=== PATIENT | male | born 1990 | race Caucasian/White ===

== ENCOUNTER 2017-12-13 08:54 | Inpatient (IN) | payer OTHER ==
[~2017-12-13] VITALS: Ht 172.7 cm; Wt 77.1 kg
[~2017-12-13 08:54] MED LIST: AUGMENTIN 875875 MG PO; BUPROPION XL300 M1 PO; CITALOPRAM HYDR10 MG PO; CITALOPRAM HYDR20 MG PO; CLONAZEPAM1 MG PO; DOLOPHINE10 MG PO; GABAPENTIN TAB600 MG PO; GABAPENTIN300 M2 PO; GABAPENTIN300 MG PO; METHADONE H5 MG/5 ML PO; METHADONE10 MG/5 ML PO; NICORELIEF2 MG PO; TORADOL10 MG PO; TRILEPTAL150 M1 PO; WELLBUTRIN SR200 M1 PO
--- NOTE | 2017-12-13 09:32 | ED GENERAL ADULT ---
See Addendum History of Present Illness General Chief Complaint: ETOH/Drug Related Complaint Stated Complaint: AMS, SOB, NO SLEEP X 5 DAYS. HX DRUG USE Source: patient, family Exam Limitations: clinical condition, physical impairment Vital Signs & Intake/Output Vital Signs & Intake/Output Vital Signs Date Time Temp Pulse Resp B/P B/P Pulse O2 O2 Flow FiO2 Mean Ox Delivery Rate 12/14 1100 98.0 62 20 104/56 97 Room Air 12/14 0837 98.1 82 20 115/67 96 Room Air 12/14 0607 97.6 77 18 108/63 97 Room Air 12/13 2359 98.2 66 16 111/55 97 12/13 2102 98.3 87 20 129/81 98 Room Air 12/13 1630 71 18 131/73 96 Room Air ED Intake and Output 12/14 0000 12/13 1200 Intake Total Output Total Balance Patient 170 lb Weight Weight Reported by Patient Measurement Method Allergies Coded Allergies: Cephalosporins (Severe, tongue swelling 08/14/17) haloperidol (From HALDOL) (Severe, tongue swelling 08/14/17) Reconcile Medications Bupropion HCl (Bupropion XL) 300 MG TAB.ER.24H 1 TAB PO 0800 DEPRESSION Gabapentin 300 MG CAPSULE 1 TAB PO Q8 ANXIETY Nicotine (Nicorelief) 2 MG GUM 1 GUM PO Q2H PRN nicotine craving refract to pa Oxcarbazepine (Trileptal) 150 MG TABLET 2 TAB PO BID MOOD STABILIZER Triage Note: PT TO ED WITH FATHER FOR AMS. FATHER STATES PT HAS H/O DRUG USE, HAS NOT SLEPT IN 5 DAYS AND HAS BEEN PACING. FATHER STATES PT HAS HAD 2 RECENT "CLINICALLY " EXPERIENCES AND WAS BROUGHT BACK WITH [facility]. PT RELUCTANT TO ANSWER QUESTIONS, UNKNOWN LAST USE OR OF WHAT. FATHER STATES PT HAS SI THOUGHTS/STATEMENTS, PT NOT ANSWERING APPROPRIATELY. IN W/C DUE TO UNSTEADY ON FEET. Triage Nurses Notes Reviewed? yes Onset: Abrupt Duration: day(s): Timing: recent history HPI: 12/13/17 9:37 AM 27-year-old male presents to the emergency department for depression, drug use, suicidal ideation. According to the patient's father he has a history of intravenous drug abuse. He says he's had multiple drug overdoses and is almost on multiple occasions. He continues to use drugs and has verbalized suicidal ideation to his father. His father is very concerned and said he is going to kill himself. (Francisco Castañeda DO) Past History Travel History Traveled to [place] past 21 day No Medical History Any Pertinent Medical History? 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 Hx Contributory? No (Francisco Castañeda DO) Review of Systems Review of Systems Constitutional: Denies: fever. EENTM: Reports: no symptoms. Respiratory: Denies: short of breath. Cardiovascular: Denies: chest pain. GI: Reports: no symptoms. Genitourinary: Reports: no symptoms. Musculoskeletal: Reports: muscle stiffness. Skin: Reports: no symptoms. Neurological/Psychological: Reports: depressed. Hematologic/Endocrine: Reports: no symptoms. Immunologic/Allergic: Reports: no symptoms. (Francisco Castañeda DO) Physical Exam Physical Exam General Appearance: awake, anxious, severe distress Head: atraumatic Ears, Nose, Throat: normal pharynx Neck: normal inspection, supple, full range of motion Respiratory: chest non-tender, no respiratory distress Cardiovascular: regular rate/rhythm Peripheral Pulses: 4+ radial (R), 4+ radial (L) Gastrointestinal: soft, non-tender Back: normal range of motion Extremities: normal range of motion Neurologic/Psych: no motor/sensory deficits, awake, alert, oriented x 3 Skin: intact, normal color, warm/dry Core Measures ACS in differential dx? No CVA/TIA Diagnosis: No Sepsis Present: No Sepsis Focused Exam Completed? No (Francisco Castañeda DO) Progress Differential Diagnoses I considered the following diagnoses in my evaluation of the patient: [Alcohol withdrawal, opiate withdrawal, opiate dependency, depression, suicidal ideation] Plan of Care: Orders Procedure Date/time Status Admit to inpatient psych 12/14 1113 Active Continuous Observation Monitor 12/14 0719 Active Regular Diet 12/13 D Active Restraint- Discontinue 12/13 2317 Active Patient Safety Monitor 12/13 2034 Active Restraint- Behavioral (Order) 12/13 2034 Active Current Medications Sig/Pennie Start time Last Medication Dose Stop Time Status Admin Olanzapine 5 MG TID 12/14 1000 UNVr 12/14 (ZYDIS (Orally 0847 disintegrating tabs)) Oxcarbazepine 300 MG BID 12/14 1000 UNVr 12/14 (Trileptal 150MG Tab) 0804 Bupropion HCl 300 MG 0800 12/14 0800 UNVr 12/14 (Wellbutrin XL) 0804 Gabapentin 300 MG Q8 12/14 0742 UNVr (Neurontin) Gabapentin 300 MG Q6P PRN 12/13 1915 AC 12/14 (Neurontin) 0623 Laboratory Tests 12/13/17 1230: Urine Opiates Screen 361, Methadone Screen < 40, Barbiturate Screen < 60, Ur Phencyclidine Scrn < 6.00, Amphetamines Screen < 100, U Benzodiazepines Scrn < 85, Urine Cocaine Screen 384 H, Urine Cannabis Screen < 5.00 11:29 AM PATIENT SIGNED OUT TO ME BY DR CASTAÑEDA, PENDING CRISIS EVALUATION. 11:15 AM PATIENT SIGNED OUT TO ME BY DR ENGEL, ADMITTED TO [facility]. (Mitali TEJEDA,Renu) Initial ED EKG: pending (Francisco Castañeda DO) Differential Diagnoses I considered the following diagnoses in my evaluation of the patient: Hand-Off Endorsed To: Gopi Desir MD Endorsed Time: 1912 Pending: consult (CRISIS REEVALUATION IN AM) (Renu Jasmine MD) Hand-Off Endorsed To: Francisco Engel MD Endorsed Time: 699 Pending: consult Comments: Patient attempted to run out of the emergency department. Patient was stopped and escorted back to his room. At this point patient will be placed on a PEC. Patient keeps trying to leave his room. Patient instructed that if he doesn't go back to his room he will need to be restrained. Patient states "than just time he down and give me a shot." Patient is upset that he was not given Ativan. Patient advised that he will still not be getting Ativan. 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 (Maren TEJEDA,Francisco Palacio) Departure Departure Disposition: STILL A PATIENT Condition: Stable Clinical Impression Primary Impression: Depression Secondary Impressions: Opiate dependence Referrals: Patient Has No Primary Care Dr (PCP/Family) Departure Forms: Customer Survey General Discharge Information Comments 12/13/17 9:41 AM The patient was treated with IM Ativan and by mouth clonidine. Labs and crisis consultation ordered. Continuous observation was initiated. The patient will be signed out to Dr. Jasmine at 11 AM. (Francisco Castañeda DO) Psych Admission Note Psychiatric Admission: I have seen and evaluated NETTE NINO. I have also reviewed all the pertinent lab results and diagnostic results. NETTE NINO will be admitted to our inpatient Psychiatric unit for treatment and care. (Mitali TEJEDA,Renu) Critical Care Note Critical Care Note Critical Care Time: 30-74 min (Francisco Castañeda DO)
[2017-12-13 10:21] LABS: ABSOLUTE BASOPHIL COUNT 0.1 /CUMM (0.0-0.2); ABSOLUTE EOSINOPHIL COUNT 0.1 /CUMM (0.0-0.7); ABSOLUTE LYMPH COUNT 1.4 /CUMM (1.2-3.4); ABSOLUTE MONOCYTE COUNT 0.4 /CUMM (0.10-0.60); BASOPHIL % 0.8 % (0.0-2.0); EOSINOPHIL % 0.7 % (0-5); GRANULOCYTE % 78.2 % (42.2-75.2); HEMATOCRIT 43.1 % (42-52); MEAN CORPUSCULAR HGB 31.2 PG (27.0-31.0); MEAN CORPUSCULAR HGB CONC 34.5 G/DL (33.0-37.0); MEAN CORPUSCULAR VOLUME 90.5 FL (80.0-94.0); MEAN PLATELET VOLUME 8.4 FL (7.4-10.4); PLATELET COUNT 283 /CUMM (130-400); RBC DISTRIBUTION WIDTH 13.5 % (11.5-14.5); RED BLOOD CELL CT 4.76 /CUMM (4.70-6.10)
--- NOTE | 2017-12-13 12:51 | ED PSY CRISIS COLLATERAL NOTE ---
Collateral Note Collateral Note Family/Inform/Trice Contacts: Interviewed father Justin Whyte this morning. Father stated he drove pt here this morning from their home. Father stated pt has been pacing, not sleeping for the past five days and complaining of breathing problems. Father also stated pt has been showering excessively as well. He stated pt has been taking up to 7 showers a day. Father stated that pt is not currently involved in any treatment and is not prescribed any medications. Father stated that pt lives with he and his . Pt has two siblings a 21 year old sister and a 23 year old brother. Father explained that pt's siblings are doing really well. Brother is in college and sister lives with a friend but works roll weigher and attends college roll weigher as well. Father expressed a lot of concern for pt's safety. He described a history of significant suicidal behavior and fears he will soon be successful. Father explained that pt was found 2 1/2 months ago in [place] in the snow after overdosing. This past Thanksgiving pt was found unresponsive in his bathtub at home with a needle in his groin. When pt was 14 he overdosed and spent 15 days at [facility] in their intensive care unit. Father stated that pt has overdosed at least four times. Father stated that pt has been using heroin since age 18. Father reported that pt is an IVDU and he also uses cocaine and has a history of huffing. Father stated that at a younger age pt would tie things around his neck and pull on it. He also stated that when pt was 14 he tied a hose around a tree and tied the other end around his neck. Father stated that he stopped him from going further. Father stated that pt has had numerous inpatient and outpatient treatment programs. Father stated that pt also has had mental health treatment in the past as well. Father was unable to recall the programs pt attended. Pt also has a history of arrests and incarcerations as a juvenile and as an adult. Father stated that pt currently has three pending court cases in three separate cities. Pt actually had a court date for today. Father stated that two of the cases were for speeding and a domestic case. Father was unsure what the other case is for. Father stated that pt has a history of aggression and a lot of fighting. He has spent approximately 3-4 years of his life incarcerated. Father stated that pt was also in [facility] for a period when he was 14 years old. 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
--- NOTE | 2017-12-13 20:12 | ED PSYCH CRISIS CONSULTATION ---
Crisis Consult Basic Assessment Date of Consult: 12/13/17 Insurance Authorization: Insurance #1: Insurance name: SAADIA SANCHEZ Phone number: Policy number: [id number] Group number: Authorization number: ED Provider: Patient's ED Provider: Renu Jasmine MD Primary Care Physician: Patient's PCP: Patient Has No Primary Care Dr PCP's Phone Number: Current Psychiatrist: None Chief Complaint: ETOH/Drug Related Complaint Patient's Quote: " A breakdown." Present Illness: The patient is a 27 year old, single male presenting to the ED with worsening depression, anxiety and suicidal ideations. The patient was alert, oriented, irritable and anxious throughout the evaluation. He presented as a poor historian and answered, " I don't remember," to the majority of questions asked. He does have a long history of mental health and substance abuse issues, with subsequent treatment episodes. He was treated inpatient at [facility] in 2011, 2015, & 2017. He is not currently in any treatment and is not able ot recall the names of his other treatment facilities. He reports being treated for anxiety and depression, noting that his anxiety is a 20 out of 10 ( 10 being the most severe) and depression a 10 out of 10 ( 10 being the most severe). He states that he has "not slept in days," and that he has had a decrease in appetite. He reports abusing Heroin, Klonopin and alcohol, however was unable to recall details re: specific use. He did state that alcohol and Heroin have been daily for the last month and that his last use of Klonopin was a couple of weeks ago. His toxicology screen was positive for Cocaine, however he states that he does not remember using Cocaine. He reports that he has been having auditory hallucination (ringing) and visual hallucinations ("bright lights talking to him "). He states that he feels paranoid and that people are after him. He reports that he was doing well, living on his own and employed with a good job. He states that at some point, there was an issue at his apartment and he moved back to his parents home. He reports that he was clean for 11 months, prior to moving home and that issues at home triggered his relapse. He was not able to elaborate on what his stressors were and just kept repeating that he did not know why he moved home. He is having suicidal ideations, noting that is plan is to OD. Of note, he states that he feels safe while he is in the ED. He has a history of previous suicide attempts, noting he has attempted about 10 times. He states that the majority were by OD and he is not able to state when the last attempt was. He reports that he is also having homicidal ideations, having thoughts " all the time," with no one specific noted. He reports feeling paranoid, believing that people are after him. He is not sure what would be helpful, however is willing to stay overnight in the ED, for a reassessment in the AM. The C-SSRS was not completed, as he was not able to fully participate. Patient's Address: [address] [place] [address] Other Who Do You Live With? Family Family/Informants Interviewed: See separate collateral note completed by DUSTY Rodriguez Allergies - Coded Allergies: Cephalosporins (Severe, tongue swelling 08/14/17) haloperidol (From HALDOL) (Severe, tongue swelling 08/14/17) Current Medications - Scheduled Medications Bupropion HCl (Bupropion XL) 300 MG TAB.ER.24H 1 TAB PO 0800 DEPRESSION #15 TAB Prescribed by Gopi Herman on 08/18/17 Gabapentin 300 MG CAPSULE 1 TAB PO Q8 ANXIETY #45 TAB Prescribed by Gopi Herman on 08/18/17 Oxcarbazepine (Trileptal) 150 MG TABLET 2 TAB PO BID MOOD STABILIZER #60 TAB Prescribed by Gopi Herman on 08/18/17 Scheduled PRN Medications Nicotine (Nicorelief) 2 MG GUM 1 GUM PO Q2H PRN nicotine craving refract to velia #100 GUM Prescribed by Gopi Herman on 08/18/17 Laboratory Results: Laboratory Tests 12/13/17 1230: Urine Opiates Screen 361, Methadone Screen < 40, Barbiturate Screen < 60, Ur Phencyclidine Scrn < 6.00, Amphetamines Screen < 100, U Benzodiazepines Scrn < 85, Urine Cocaine Screen 384 H, Urine Cannabis Screen < 5.00 12/13/17 0953: Anion Gap 11, Estimated GFR > 60, BUN/Creatinine Ratio 26.3 H, Glucose 111 H, Calcium 10.0, Total Bilirubin 0.6, AST 58, ALT 43, Alkaline Phosphatase 70, Total Protein 7.5, Albumin 4.8, Globulin 2.7, Albumin/Globulin Ratio 1.8, CBC w Diff NO MAN DIFF REQ, RBC 4.76, MCV 90.5, MCH 31.2 H, MCHC 34.5, RDW 13.5, MPV 8.4, Gran % 78.2 H, Lymphocytes % 16.0 L, Monocytes % 4.3, Eosinophils % 0.7, Basophils % 0.8, Absolute Granulocytes 7.0 H, Absolute Lymphocytes 1.4, Absolute Monocytes 0.4, Absolute Eosinophils 0.1, Absolute Basophils 0.1, Serum Alcohol < 10.0 (Alissa MONTANO,Mariam) Past History Past Medical History Neurological: NONE EENT: NONE Cardiovascular: NONE Respiratory: NONE Gastrointestinal: NONE Hepatic: NONE Renal: NONE Musculoskeletal: CELLULITIS Psychiatric: anxiety, depression, PTSD COCAINE ABUSE HEROIN ABUSE Endocrine: NONE Blood Disorders: NONE Cancer(s): NONE 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 Physical Limitations (Interventions): None noted Psychiatric Treatment History Psych Treatment Psychiatric Treatment Yes Inpatient Treatment Yes Outpatient Treatment Yes Location of Treatment [facility] per records, the pt. could not recall other treaters. Reason for Treatment Depression and anxiety Dates of Treatment CPS- 2011, 2014, and 2017. Response to Treatment Unclear Diagnosis by History: Opiate Dependence; Depressive disorder Substance Use/Abuse History Drug Use/Abuse 1 Substances Used/Abused Yes Substance Used/Abused Heroin First Use Pt. unable to recall Last Used Pt. unable to recall How much used/taken "10 bags." How often Daily For how long He reports that his epsiodes has lasted for one month. Route of use IV and intranasal Drug Use/Abuse 2 Substances Used/Abused Yes Substance Used/Abused Alcohol First Use Pt. unable to recall Last Used Pt. unable to recall How much used/taken "1 drink of Isabel." How often Daily For how long Pt. unable to recall Route of use oral Drug Use/Abuse 3 Substances Used/Abused Yes Substance Used/Abused Benzodiazepines (Klonopin) First Use Pt. unable to recall Last Used "a couple of weeks ago." How much used/taken Pt. unable to recall How often Pt. unable to recall For how long Pt. unable to recall Drug Use/Abuse 4 Substances Used/Abused Yes Substance Used/Abused Cocaine First Use Pt. unable to recall Last Used Pt. unable to recall, however toxicology screen +. How much used/taken Pt. unable to recall How often Pt. unable to recall For how long Pt. unable to recall Route of use Unclear Substance Abuse Treatment Substance Abuse Treatment Past Substance Abuse [place] Yes Inpatient Treatment Yes Outpatient Treatment Yes Location of Treatment Pt. unable to recall Reason for Treatment Opiate abuse Dates of Treatment Pt. unable to recall Response to Treatment Pt. unable to recall Comments: N/A (Alissa MONTANO,Mariam) Current Mental Status Mental Status Orientation: Person, Place, Situation Affect: Labile Speech: WNL (Took long pauses when respondi) Neuro-vegetative: Appetite Decreased, Sleep Disturbance Appearance Appearance- Dress/Hygiene: He was lying in bed, in hospital attire, neat clean and well kempt. Behaviors Thought Process: Difficult to assess Thought Content: Auditory Hallucinations, Paranoid, Visual Hallucinations, He states that he has been hearing ringing and seeing "bright lights talking to him." Memory: Impaired Insight: Fair (Agreed to stay in ED.) SI/HI Risk Assessment Past Suicidal Ideation/Attempts Yes Current Suicidal Ideation/Att Yes Past Homicidal Ideation/Att: No Current Homicidal Ideation/Attempts Yes Degree of Intent: Plan, States Intent, He reports that he is having suicidal ideations with a plan to OD. He reports that he feels safe while in the ED. He has had multiple suicide attempts in the past. He reports that he has homicidal ideations "all the time," however did not specify a target. Danger To: Others, Self Gravely Disabled: Poor Impulse Control, Poor Judgment Risk Factors: access to lethal means, SA/MH hospitalized, substance abuse, poor impulse control, male, limited support Lethality Ratin PTSD Checklist PTSD Done? pt unable to participate (Secondary to labile presentati) ED Management Sitter: Yes Restraints: Yes (Mariam Maxwell LCSW) DSM5/PS Stressors/Medical Prob Diagnosis' (DSM 5, Stressors, Medical): F32.9 Unspecified Depressive Disporder F41.9 Unspecifed Anxiety Disorder F10.20 Alcohol Use Disorder F14.20 Stimulant Use Disorder- Cocaine type F11.20 Opioid Use Disorder F13.20 Sedative, Hypnotic and Anxiolytic Use Disorder- Klonopin Medical: Unremarkable Stressors: Family issues, unemployment, legal. Current GAF: 25 Comments: N/A (Mariam Maxwell LCSW) Departure Disposition Psych Medical Clearance Date: 12/13/17 Medically Cleared at: 1700 Time Started: 1830 Time Ended: 193 Psychiatrist Consulted: Conrad Santa MD Disposition Established: 12/13/17 Time Disposition Established: 1999 Plan for Disposition - Modality: Hold over for reassessment. Contact: N/A Telephone: N/A Rationale for Disposition: The patient presents with depressed mood, anxiety, +VH, +AH, paranoia, substance abuse suicidal ideations and homicidal ideations. The Case was discussed with Dr. Santa and the patient will be held over for reassessment in the AM, as his toxicology screen is positive for Cocaine. Type of IP Admission: PEC Additional Instructions: N/A Referrals Patient Has No Primary Care Dr (PCP/Family) (Mariam Maxwell LCSW) Addendum Note Addendum Crisis re-evaluated patient this morning at 7:45 a.m. Pt was pacing around the behavioral health rooms prior to crisis coming to speak with patient. Pt reports his night was not good. He states he is anxious. Patient was rocking on the bed and rolling around on the bed. He was grabbing at his paper scrubs. When asked if he felt uncomfortable in his own skin, he reported yes. Pt stated he lost 120 pounds in a few months. Patient attributes this weight loss to moving back home. Per past records patient appears to have lost ~56 pounds since August 2017. Patient reports he feels physically sick but doesnt think he is going through withdrawals. Pt continues to endorse SI without a specific plan. Patient denies HI. Patient endorses hearing ringing his ears as well as problems with the lights. Crisis shut the overhead lights off to help the pt with his discomfort due to the lights. Patient is agreeable to come into the hospital voluntarily. Crisis consulted with Dr. Diego. Patient will be either admitted to [facility] if there is a bed available post morning rounds or bed searched to another hospital. Dr. Diego was informed of the medications patient was ordered this morning ( Wellbutrin XL 300 mg TID; Gabepentin 300 mg TID, Trileptal 150). We discussed adding Clonidine for withdrawal symptoms as well as Zyprexa 5mg TID for agitation. Discussed the above with Dr. Engel, attending ED physician. He did not agree with the Clonidine at this time. Ordered Zyprexa and will re-evaluate need for additional medications. (Kong MONTANO,Brenda)
--- NOTE | 2017-12-14 10:29 | IP CRISIS DIAG ASSESS PSYCH ---
Diagnostic Assessment Basic Assessment Insurance Authorization: Insurance #1: Insurance name: SAADIA SANCHEZ Phone number: Policy number: [id number] Group number: Authorization number: Pending Authorization #[id number] Primary Care Physician: Patient's PCP: Patient Has No Primary Care Dr PCP's Phone Number: Patient's Quote: " A breakdown." Present Illness: Crisis re-evaluated patient this morning at 7:45 a.m. Pt was pacing around the behavioral health rooms prior to crisis coming to speak with patient. Pt reports his night was not good. He states he is anxious. Patient was rocking on the bed and rolling around on the bed. He was grabbing at his paper scrubs. When asked if he felt uncomfortable in his own skin, he reported yes. Pt stated he lost 120 pounds in a few months. Patient attributes this weight loss to moving back home. Per past records patient appears to have lost ~56 pounds since August 2017. Patient reports he feels physically sick but doesnt think he is going through withdrawals. Pt continues to endorse SI without a specific plan. Patient denies HI. Patient endorses hearing ringing his ears as well as problems with the lights. Crisis shut the overhead lights off to help the pt with his discomfort due to the lights. Patient is agreeable to come into the hospital voluntarily. Crisis consulted with Dr. Diego. Patient will be either admitted to [facility] if there is a bed available post morning rounds or bed searched to another hospital. Dr. Diego was informed of the medications patient was ordered this morning ( Wellbutrin XL 300 mg TID; Gabepentin 300 mg TID, Trileptal 150). We discussed adding Clonidine for withdrawal symptoms as well as Zyprexa 5mg TID for agitation. Discussed the above with Dr. Engel, attending ED physician. He did not agree with the Clonidine at this time. Ordered Zyprexa and will re-evaluate need for additional medications. Per Crisis Consult completed by Mariam Maxwell LCSW: The patient is a 27 year old, single male presenting to the ED with worsening depression, anxiety and suicidal ideations. The patient was alert, oriented, irritable and anxious throughout the evaluation. He presented as a poor historian and answered, " I don't remember," to the majority of questions asked. He does have a long history of mental health and substance abuse issues, with subsequent treatment episodes. He was treated inpatient at [facility] in 2012, 2015, & 2017. He is not currently in any treatment and is not able ot recall the names of his other treatment facilities. He reports being treated for anxiety and depression, noting that his anxiety is a 20 out of 10 ( 10 being the most severe) and depression a 10 out of 10 ( 10 being the most severe). He states that he has "not slept in days," and that he has had a decrease in appetite. He reports abusing Heroin, Klonopin and alcohol, however was unable to recall details re: specific use. He did state that alcohol and Heroin have been daily for the last month and that his last use of Klonopin was a couple of weeks ago. His toxicology screen was positive for Cocaine, however he states that he does not remember using Cocaine. He reports that he has been having auditory hallucination (ringing) and visual hallucinations ("bright lights talking to him "). He states that he feels paranoid and that people are after him. He reports that he was doing well, living on his own and employed with a good job. He states that at some point, there was an issue at his apartment and he moved back to his parents home. He reports that he was clean for 11 months, prior to moving home and that issues at home triggered his relapse. He was not able to elaborate on what his stressors were and just kept repeating that he did not know why he moved home. He is having suicidal ideations, noting that is plan is to OD. Of note, he states that he feels safe while he is in the ED. He has a history of previous suicide attempts, noting he has attempted about 10 times. He states that the majority were by OD and he is not able to state when the last attempt was. He reports that he is also having homicidal ideations, having thoughts " all the time," with no one specific noted. He reports feeling paranoid, believing that people are after him. He is not sure what would be helpful, however is willing to stay overnight in the ED, for a reassessment in the AM. Patient's Address: [address] [place], [place] [id number] Other Who Do You Live With? Family Feel Safe Where You Live? Yes Marital Status: single Do You Have Children? No Primary Language? Arabic Language(s) Spoken At Home: Arabic Family/Informants Interviewed: See separate collateral note completed by DUSTY Rodriguez Allergies - Coded Allergies: Cephalosporins (Severe, tongue swelling 08/14/17) haloperidol (From HALDOL) (Severe, tongue swelling 08/14/17) Current Medications - Scheduled Medications Bupropion HCl (Bupropion XL) 300 MG TAB.ER.24H 1 TAB PO 0800 DEPRESSION #15 TAB Prescribed by Gopi Herman on 08/18/17 Gabapentin 300 MG CAPSULE 1 TAB PO Q8 ANXIETY #45 TAB Prescribed by Gopi Herman on 08/18/17 Oxcarbazepine (Trileptal) 150 MG TABLET 2 TAB PO BID MOOD STABILIZER #60 TAB Prescribed by Gopi Herman on 08/18/17 Scheduled PRN Medications Nicotine (Nicorelief) 2 MG GUM 1 GUM PO Q2H PRN nicotine craving refract to pa #100 GUM Prescribed by Gopi Herman on 08/18/17 Consequences of Psych Med Use: pt does not take medications that were prescribed since last admission from . Lab Results: Laboratory Tests 12/13/17 1230: Urine Opiates Screen 361, Methadone Screen < 40, Barbiturate Screen < 60, Ur Phencyclidine Scrn < 6.00, Amphetamines Screen < 100, U Benzodiazepines Scrn < 85, Urine Cocaine Screen 384 H, Urine Cannabis Screen < 5.00 Toxicology Screen Completed? Yes Results: positive Symptoms of Use: Cocaine Past History Past Surgical History Surgical History none Abuse/Trauma History Trauma History/Current Trauma: Denies Abuse/Trauma Treatment: n/a Legal History Current Legal Status: pending charges Have you ever been arrested? Yes Number of Arrests: [address] Dates: 12/30/17- BOP & Criminal Mischief ([place]) 01/03/18- Reckless Driving ([place]) Psychosocial History Strengths/Capabilities: pt unable to articulate strengths. 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 per records, the pt. could not recall other treaters. Reason for Treatment Depression and anxiety Dates of Treatment CPS- 2011, 2015, and 2017. Response to Treatment Unclear Diagnosis by History: Opiate Dependence; Depressive disorder Risk Factors: access to lethal means, SA/MH hospitalized, substance abuse, poor impulse control, male, limited support, hx of aggression- fighting Substance Use/Abuse History Drug Use/Abuse minimum 12mo Hx 1 Substances Used/Abused Yes Substance Used/Abused Cocaine First Use Pt. unable to recall Last Used Pt. unable to recall, however toxicology screen +. How much used/taken Pt. unable to recall How often Pt. unable to recall For how long Pt. unable to recall Route of use Unclear Drug Use/Abuse minimum 12mo Hx 2 Substances Used/Abused Yes Substance Used/Abused Heroin First Use 18- per father Last Used unk- How much used/taken unk How often unk For how long unk Route of use IV, intranasal- per father Substance Abuse Treatment Substance Abuse Treatment Past Substance Abuse [place] Yes Inpatient Treatment Yes Outpatient Treatment Yes Location of Treatment Pt. unable to recall Reason for Treatment Opiate abuse Dates of Treatment Pt. unable to recall Response to Treatment Pt. unable to recall Sexual History Sexual Concerns: none Education History Highest Level of Education: some college Current Mental Status Mental Status Orientation: Person, Place, Situation Affect: Labile Speech: Hyper-verbal Neuro-vegetative: Appetite Decreased, Sleep Disturbance Appearance Appearance- Dress/Hygiene: He in hospital issued blue scrubs. No remarkable features noted to dress/ hygiene. Behaviors Thought Process: Loose Association Thought Content: Auditory Hallucinations, Paranoid, Visual Hallucinations, He states that he has been hearing ringing and seeing "bright lights talking to him." Memory: Impaired Insight: Fair (Agreed to stay in ED.) SI/HI Risk Assessment - Minimum 6mo History- Past Suicidal Ideation/Attempts Yes Current Suicidal Ideation/Att Yes Past Homicidal Ideation/Att: No Current Homicidal Ideation/Attempts Yes Degree of Intent: States Intent, He reports that he is having suicidal ideations with a plan to OD. He reports that he feels safe while in the ED. He has had multiple suicide attempts in the past. He reports that he has homicidal ideations "all the time," however did not specify a target. Danger To: Self Gravely Disabled: Lack of Insight, Poor Impulse Control, Poor Judgment Risk Factors: access to lethal means, SA/MH hospitalized, substance abuse, poor impulse control, male, limited support Lethality Ratin Needs/Init TX Plan/Goals: Comphensive Psychiatric Assessment Medication Evaluation Comphrensive Psychosocial Assessment Eliminate AH/VH Eliminate SI AUDIT-C Questionnaire: AUDIT-C Questionnaire: Response Value ETOH use in the past year 2-4 times/month 2 # drinks typical/day 3 or 4 1 6 or > drinks per occasion Weekly 3 Total 6 DSM5/PS Stressors/Medical Prob Diagnosis' (DSM 5, Stressors, Medical): F32.9 Unspecified Depressive Disporder F41.9 Unspecifed Anxiety Disorder F10.20 Alcohol Use Disorder F14.20 Stimulant Use Disorder- Cocaine type F11.20 Opioid Use Disorder F13.20 Sedative, Hypnotic and Anxiolytic Use Disorder- Klonopin Medical: Unremarkable Stressors: Family issues, unemployment, legal. Current GAF: 25 Comments: N/A
[2017-12-14 12:35] VITALS: BP 125/69
[2017-12-14 17:46] VITALS: BP 136/61
[2017-12-14 22:04] VITALS: BP 102/56
[2017-12-15] VITALS (7 sets, daily range): BP systolic 107–134; BP diastolic 64–76
--- NOTE | 2017-12-15 11:22 | SOCIAL WORKER PROG NOTE PSYCH ---
Social Work Progress Note Progress Note Edison was doing alot of pacing this morning. I asked earlier in the morning if we could meet. He said he didn't feel up to it at the moment. I let 45 minutes or so pass and approached him again. We walked togther talking for a few minutes due to him not being able to sit still. He said he feels like he is crawling out of his skin and no one will give him anything, because "they think I'm a drug addict." I asked if he has been using drugs? He said no. I confronted him and said his tox screen was positive for cocaine. He said "I used cocaine once." I asked what had been going on since his last admission here in August? He said he never should have moved in with his parents and things aren't going well. He wouldn't elaborate other than say he isn't where he should be in his life. He feels stressed and that's why he is losing alot of weight. He asked about going home. I told him he needs to see the doctor and we will discuss a plan. Tried to sit down with him in the louge, but after a minute he couldn't sit and got up. He said he feels like he's going to "lose it." Encouraged him to take deep breaths splash some water on his face. Talked to nursing. Nursing was checking to see if he can take anything for agitation.
--- NOTE | 2017-12-15 14:27 | History & Physical ---
General Information and HPI History of Present Illness: This young male was admitted into the hospital because of increasing depression. Reports that he came to hospital because he was not feeling good and drove himself to the hospital. He reported some suicidal ideation was admitted in psychiatry for further treatment. He was in the hospital for the same type of problem about 4 months ago and he claimed that he was not given any medicine at the time of discharge and presently he is not taking any medication. His past history is essentially negative except for the same type of problem and psychiatric admissions. He denies any major medical illnesses or surgeries MEDICAL problems. He denies drinking alcohol and admits to smoking cigarettes. Denies using any drugs although his urine toxicology positive for cocaine. He is presently living with his parents claims removed and within a few months ago. 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 Allergies/Medications Allergies: Coded Allergies: Cephalosporins (Severe, tongue swelling 08/14/17) haloperidol (From HALDOL) (Severe, tongue swelling 08/14/17) Home Med list Bupropion HCl (Bupropion XL) 300 MG TAB.ER.24H 1 TAB PO 0800 DEPRESSION Gabapentin 300 MG CAPSULE 1 TAB PO Q8 ANXIETY Oxcarbazepine (Trileptal) 150 MG TABLET 2 TAB PO BID MOOD STABILIZER Past History Travel History Traveled to [place] past 21 day No Medical History Neurological: NONE EENT: NONE Cardiovascular: NONE Respiratory: NONE Hepatic: NONE Renal: NONE Musculoskeletal: NONE Psychiatric: anxiety, depression, opioid dependence, substance abuse, PTSD Endocrine: NONE Blood Disorders: NONE Cancer(s): NONE LABORATORY SPECIALIST/Reproductive: NONE History of MRSA: No History of VRE: No History of CDIFF: No Isolation History: Standard Tetanus Vaccine: 05/20/15 Surgical History Surgical History: none Past Family/Social History Family History Relations & Conditions if any OTHER (Denies any significant family history.). Psychosocial History Where do you live? Home Services at Home: None Primary Language: Polish ETOH Use: denies use Illicit Drug Use: cocaine, heroin Functional Ability Ambulation: independent Review of Systems Review of Systems Constitutional: Denies: no symptoms. EENTM: Denies: no symptoms. Cardiovascular: Denies: no symptoms. Respiratory: Denies: no symptoms. GI: Denies: no symptoms. Genitourinary: Denies: no symptoms. Musculoskeletal: Denies: no symptoms. Skin: Denies: no symptoms. Neurological/Psychological: Reports: see HPI, anxiety, depressed, emotional problems. Hematologic/Endocrine: Denies: no symptoms. Exam & Diagnostic Data Last 24 Hrs of Vital Signs/I&O Vital Signs Date Time Temp Pulse Resp B/P B/P Pulse O2 O2 Flow FiO2 Mean Ox Delivery Rate 12/15 1226 100 127/72 12/15 1223 100 127/72 12/15 1004 98.7 98 134/64 12/15 0913 69 102/58 12/14 2204 69 102/58 12/14 2204 68 102/56 12/14 1746 78 136/61 12/14 1744 78 126/61 Intake & Output 12/15 1600 12/15 0800 12/15 0000 Intake Total Output Total Balance Patient 170 lb Weight Physical Exam General Appearance Alert, Oriented X3, No Acute Distress Skin No Rashes, No Breakdown, No Significant Lesion HEENT Atraumatic, PERRLA, EOMI, Mucous Membr. moist/pink Neck Supple, No JVD, No thryomegaly, +2 Carotid Pulse wo Bruit Lymphatic Cervical nl Cardiovascular Regular Rate, Normal S1, Normal S2, No Murmurs, Gallops, Rubs Lungs Clear to Auscultation, Normal Air Movement Abdomen Soft, No Tenderness, No Hepatospenomegaly, No Masses Neurological Exam Findings: Normal Gait, Normal Speech, Strength at 5/5 X4 Ext, Normal Tone, Cranial Nerves 3-12 NL Cranial Nerves II through XII: Within normal limits and intact Extremities No Clubbing, No Cyanosis, No Edema, No Tenderness/Swelling Assessment/Plan Assessment: This young male was admitted to the hospital for increasing depression and suicidal ideation. From medical standpoint he's fairly stable without any acute problems. His admission lab work including a CBC electrolytes renal functions and liver function of that all within normal limits and he does not require any workup or treatment from a medical standpoint and is stable. As Ranked By This Provider Problem List: 1. Depression 2. Anxiety 3. Polysubstance abuse Miscellaneous Miscellaneous Documentation Attending Case Discussed With: Kiet TEJEDA,Conrad Primary Care Physician: Patient Has No Primary Care Dr Patient sees these Specialists none Level of Patient Care: NICO Beckett Attending MD Review Statement Attending Statement Attending MD Statement: examined this patient, reviewed EMR data (avail), discussed with nursing Attending Assessment/Plan: This young male was admitted for depression and suicidal ideation. He is stable from medical standpoint and without any acute medical problem. He does not report any workup or treatment from medical standpoint and will be seen only as needed.
--- NOTE | 2017-12-15 17:28 | CPS PROVIDER INIT ASMT PSYCH ---
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 Chief Complaint: Complains of extremely high anxiety. Reaction to Hospitalization: "Not good." History of Present Illness Onset of Illness: Chronic. Wasn't sleeping for 5 days with accompanying behavioral changes. Circumstances Leading to Admission: Father reported patient was pacing, not sleeping, complained of breathing problems and was showering excessively. Hx heroin use since 18 yo. Hx agression/fighting. Worsening depression and anxiety, SI. Patient reported abusing heroin, Klonopin and alcohol. Urine drug screen was positive for cocaine. Reported AH (ringing) and VH (bright lights talking to him). Reported SI to overdose. Reorted PI. Was clean for 11 months before moving to parents' home. Problem(s) Justifying Need for Admission: SI. High anxiety/agitation. Other HPI: Patient stated "I just lost my life, I lost everything." He states he did not like his apartment and stopped paying the rent and moved out. Reports he tried to cope by using (drugs). He has been living with his parents and describes it as being "horrible." Feeling too anxious. Reports feeling like he is crawling out of his "f*cking" skin." States "I f*cked up, but he is vague as to the specifics. Reports the people in his apartment were not bad but made him look bad at his job. This did not make sense. Reports he always sabotages himself. Reports sleep, appetite and energy have not been good. Past Psychiatric History Past Diagnosis(es)- if any: Unspecified depression. Opioid dependence. Past Precipitating Factors- if any: Substance use. - Include inpatient and outpatient treatment Treatment History: Apparent history of multiple hospitalizations, please see crisis workers' notes. Patient denies being in outpatient treatment. He has been hospitalized at [facility] and at [place]. History of Suicide Attempts or Gestures Patient denies attempts but timber mill worker's collateral note from 12/13/17 indicates that the patient has made suicide attempts and gestures. Substance Abuse History: Tobacco at 1 pack per day. Alcohol "once in a blue." Denies cannabis. Cocaine: 1 line a few days ago and states he uses it about 1 time a year. Reports using opiates at one bundle a day IV or sniffed. Reports he stopped a few days ago. Patient reports he was prescribed Klonopin in the past but stopped it for years and then started buying on the street one week ago. Reports using Xanax 6 mg a day and Klonopin 3 mg a day. Allergies: Coded Allergies: Cephalosporins (Severe, tongue swelling 08/14/17) haloperidol (From HALDOL) (Severe, tongue swelling 08/14/17) Home Med List: Denies being on medications recently. - Include any medical condition(s) that may - impact the patient's recovery/remission Past Medical History: Denies past medical history. 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 Substance Use: Patient reports father drinks a little bit. Suicides: Denies. Social History Living Situation: Lives with parents in [place]. Significant Relationships (family/friends): Apparently parents. Does not have kids. Education: Patient reports he is 1 semester shy of a bachelor's degree from [employer]. 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 Legal: Patient reports he has had a couple of arrests for reckless driving and breach of peace. Collateral note from timber mill worker indicates that the patient spent approximately 3-4 years of his life incarcerated. Healthly Behaviors Screening Tobacco Screening Tobacco Use from ED Docu: Current Daily Use Daily Tobacco Use Amount/Type: => 5 Cigarettes daily - If tobacco counseling indicated - the following topics are required. - #1 Recognizing dangerous situations. - #2 Coping Skills. - #3 Basic information about quitting. Status of Tobacco Cessation Counseling: #1, #2 AND #3 Completed Cessation Med Status Nicotine Patch Ordered Alcohol Screening - ETOH screen POS if BAL >=80 or Audit-C>= M4/F3 Audit-C Score from Diag Assess: 6 Blood Alcohol Level: Laboratory Tests 12/13 0953 Toxicology Serum Alcohol (<10 MG/DL) < 10.0 Alcohol Use Screening Results: Pos per Audit C &/or BAL - If ETOH counseling indicated - the following topics are required. - #1 Express concern about the patient's - drinking at unhealthy levels, include informing - of national norms for moderate drinking: - men <= 14 drinks/week, max 4 drinks/occasion - women <= 7 drinks/week, max 3 drinks/occasion - #2 Providing feedback, including linking alcohol to - negative physical effects (liver injury, hypertension) - negative emotional effects (relationship problems and - depression) - negative occupational consequences (reduced work - performance) - #3 Advising the patient to abstain from alcohol or - to drink below national norms for moderate drinking - (as listed above). Status of ETOH Use Counseling: #1, #2 AND #3 Completed. Metabolic Screening - Screen if on a Neuroleptic Medication - Metabolic screening should include: - Blood Pressure, BMI, Glucose or Hgb A1c, & a - Lipid profile from within the past 365 days. Metabolic Screening () Not Applicable, patient not on a neuroleptic. OR () Patient on a neuroleptic(s) . Enter below results for Hemoglobin A1C, and lipid panel if obtained during the last 365 days. BMI: Blood Pressure: 127/64 Laboratory Results From [facility] (If applicable): [x] Lab Cholesterol 151 MG/DL 12/15/17 0600 Cholesterol/HDL Ratio 2.8 % 12/15/17 0600 HDL Cholesterol 53 mg/dL 12/15/17 0600 Hemoglobin A1c 4.8 % 08/15/17 0935 LDL Cholesterol, Calc 86 mg/dL 12/15/17 0600 Triglycerides 62 mg/dL 12/15/17 0600 Exam and Plan Mental Status Examination Ambulation Status: Paces. Ambulation is WNL. Appearance: WM in blue paper scrubs. Has a light figueroa. Tattoos on L forearm. Attitude towards examiner: Agitated. Psychomotor activity: Highly agitated/anxious. Appears to be shaking "like a leaf." Behavior: Highly anxious. Quality of speech: Normal in volume, rate and tone. Affect: Extremely anxious. Mood: "I'm so anxious, I can't f*cking sit still." Sad 04/12. Anxiety 10/10. Feels hopeless, helpless, worthless and guilty. Suicidal Ideation: Denies active and passive SI. Homicidal Ideation: Denies HI. Hallucinations: Denies AH and VH. Paranoid/Delusional Material: Denies PI and magical parker. Difficulties with thought organization: There is no apparent thought disorder. Insight: Poor. Judgment: Poor. Orientation: Ox3 except gave date as 12/16/17. Cognition: Grossly intact. Memory Function: Grossly intact. Estimate of intellectual functioning: Average. Assets/Strengths Patient Identified Assets/Strengths: "When I was on my own, I was strong, good with people, hard worker. I screwed up." Impression/Plan Impression and Plan: Patient is highly anxious/agitated. May be benzo-seeking. I suspect withdrawal syndrome(s). - Include all active medical diagnosis that require tx DSM 5 Diagnosis(es): Unspecified anxiety disorder. Unspecified mood disorder. Polysubstance use disorder (cocaine, heroin). - Initial Tx Plan for Active Psych & Medical Conditions Treatment Plan: The patient will be monitored on the unit for safety, withdrawal, anxiety and mood disorder. I have place the patient on alcohol/benzo and opiate detox protocols. I have stopped Wellbutrin, which could be activating the patient. Additional information is needed from collaterals. Anticipate once clinically stable, that the patient will be discharged to home and family and be referred to an IOP. - Factors that would help patient function - in a less restrictive setting. Factors: Stable moods. Reduced anxiety. Absence of SI.
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
[2017-12-16] VITALS (9 sets, daily range): BP systolic 104–131; BP diastolic 48–68
--- NOTE | 2017-12-16 14:31 | CP SOUTH PROGRESS NOTE PSYCH ---
Psych (Inpt) Progress Note Progress Note Include the following elements, when applicable: Involvement in the active treatment of the patient with behavioral observations of the patient and the patient's response to the treatment. Review of the ongoing treatment process in the context of the treatment plan. Indication of how multi-disciplinary staff members are carrying out the treatment plan. Plans for future interventions and recommendations for revision of the treatment plan. Liaison with other physicians/providers. Progress Note: Case and treatment plan discussed in team meeting. Staff reports that the patient is denying suicidal ideation. He left a meal tray on the table and did not put it in the rack and ignored staff when staff tried to call his attention to it. Comes across as entitled. Has seemed to be "jonesing." Patient seen at 12:15 PM. He was on the phone prior to meeting with me in office. He is dressed in blue scrubs. States he feels horrible. I asked why, and he said "can't find a place to hang myself." States he was joking. He is eating ice cream during the interview. Does not appear anxious. Reports his drug screen was negative for opiates because he was taking fentanyl. I reminded him that fentanyl can kill, and he replied "I ." He is asking when he can leave. Reports mood is good. Rates sad mood 1/10 and anxiety 7/10. Denies feeling hopeless or helpless. Does feel worthless and guilty. Denies active and passive suicidal ideation. Denies homicidal ideation. Denies auditory and visual hallucinations and paranoid ideation. Reports sleep is good. Appetite is okay. Energy is okay. Tolerating medications well. Patient attempted to elope from the unit this afternoon. IMPRESSION: Slow progress. Continue present treatment plan. The patient apparently has filed for a probable cause hearing. Patient remains on detox protocols for alcohol/benzodiazepines and for opiates. Continue to monitor for safety and for AWOL risk.
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
[2017-12-17] VITALS (10 sets, daily range): BP systolic 110–140; BP diastolic 62–78
--- NOTE | 2017-12-17 11:54 | SOCIAL WORKER PROG NOTE PSYCH ---
Social Work Progress Note Progress Note Called Edison's Father and told him I couldn't confirm the family meeting for this morning with the doctor. Asked if he would like to do it later? He suggested Wednesday, due to having an appt. today. He continues to sound desperate to have Edison remain here to get help. He feels his life is in danger. Informed Edison that we are going to have the meeting on Wednesday. He got agitated and kept repeating that he has a job to go to and he's not a little boy. Stated he's not going to be living at his parents anyway. I told him we would be meeting shortly to discuss things with Dr. Santa. Dr. Santa and I met with Edison. We let him know that we feel he is on a destructive path and that we are not going to discharge him. Talked about him needing help and needing to get treatment. He initially tried to challenge that and started contradicting himself about drug use and other things, but he eventually broke down crying. Said he was "on top of the world last year" and now things have fallen apart. Continues to use the excuse that things fell apart while at his parents and that things will be better for him if he just moves out. He was confronted about this perception. He continues to be upset over weight he has lost. 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 Edison reports having suicidal thoughts today, but will be safe here on the unit. He feels hopeless, helpless, worthless, and guilty. Denies any AH/VH and denies HI. He thinks people really may be out to harm him. Dr. Santa talked about getting running tests for HIV and Hep C. Edison seems concerned that he could possibly be infected. Dr. Santa offered a trial of [place] for him to help manage his mood and suicidality. Edison is open to trying it. He was told that he will not be getting anymore Ativan and that he is on a taper. Encouraged to be respectful and remain in control while on the unit.
--- NOTE | 2017-12-17 15:18 | CP SOUTH PROGRESS NOTE PSYCH ---
Psych (Inpt) Progress Note Progress Note Include the following elements, when applicable: Involvement in the active treatment of the patient with behavioral observations of the patient and the patient's response to the treatment. Review of the ongoing treatment process in the context of the treatment plan. Indication of how multi-disciplinary staff members are carrying out the treatment plan. Plans for future interventions and recommendations for revision of the treatment plan. Liaison with other physicians/providers. Progress Note: Case and treatment plan discussed in team meeting. Staff reports that the patient decided yesterday to file for a probable cause hearing and then revoked. Medication-seeking. Tries to act-out in order to get IM medications, particularly benzodiazepines. Tests doors. Family meeting is scheduled with father for Wednesday. Patient reportedly used anabolic steroids in the past. 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 Requesting HIV testing. Patient seen at 10:23 AM with Alis Cohen LCSW. 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 He wants to leave here. He is impulsive and pressured. Claims he did not do any drugs once he moved to his parents' home but he told me otherwise the other day. States he needs to move out of his parents' home. Frequently contradicts himself. Affect is labile. Started to cry at one point. Reports mood is horrible. Rates sad mood /10 and anxiety 11/10. Feels hopeless, helpless, worthless and guilty. Reports suicidal ideation. Gives a safety problems. Denies homicidal ideation. Denies auditory and visual hallucinations. When asked if anyone is out to harm him, he replied probably, based in reality. Reports sleep is horrible and appetite is horrible. Energy is good but states it is directed in the wrong place. States he does not know what to do with his energy. Patient is requesting testing for HIV and viral hepatitis given reported unprotected sexual exposure about 6 months ago. He states he has had unexplained weight loss. I advised the patient that negative HIV testing can be falsely negative and that testing should be repeated in 6 months. I also advised him that insurance could potentially discriminate against him if he is found to be HIV positive. Major risks and benefits of lithium for mood lability and for its anti-suicidal properties, including risks of thyroid damage, kidney damage and cardiac conduction problems, were discussed with the patient and he agrees this medication. Patient was advised to avoid nonsteroidal anti-inflammatory drugs such as Motrin or aspirin while on lithium. He was advised of the signs/ symptoms of lithium toxicity. Patient was advised to avoid drugs and alcohol while on this medication. Patient's urine specimen from yesterday shows specific gravity less than or equal to 1.005 with trace urine esterase. The low specific gravity suggest that the urine may have been diluted with water. Patient claims that it was his urine. HIV test returned nonreactive and viral hepatitis studies returned nonreactive, and the patient was informed of these. Again, he was advised to have repeat HIV testing in 6 months. I will add on syphilis testing. IMPRESSION: Slow progress. Continue present treatment plan. Patient continues to require inpatient level of care in light of ongoing suicidal ideation and impulsivity. Family meeting with father will be important. I have ordered a lithium level for Wednesday morning.
[2017-12-18] VITALS (7 sets, daily range): BP systolic 118–144; BP diastolic 65–85
--- NOTE | 2017-12-18 11:25 | CP SOUTH PROGRESS NOTE PSYCH ---
Psych (Inpt) Progress Note Progress Note Include the following elements, when applicable: Involvement in the active treatment of the patient with behavioral observations of the patient and the patient's response to the treatment. Review of the ongoing treatment process in the context of the treatment plan. Indication of how multi-disciplinary staff members are carrying out the treatment plan. Plans for future interventions and recommendations for revision of the treatment plan. Liaison with other physicians/providers. Progress Note: States that he was worse at home because he has arguments with his parents and they are just dumb, they get me in trouble, they sabotage me a little bit. States that he left and conquered the world, I made all this money, met all these girls, I went home and tried to have my cake and eat it too, they screwed me again. He stated that he lost his trudi when he returned home. 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 He states that he cant have someone who screws me, they catch me on my toes, they are the best people in the world, they are good people, Im too old Goes off in similar inconsistent, odd and disorganized tangents, asks me some personal questions and is overall odd and off topic. We discussed some med changes including increasing his lithium and gabapentin, and adjusting his nicotine patch, rather than increasing ativan as he requested, as options to help lessen his anxiety and he said he did not want any of those changes. MSE: anxious young man, pleasant with fair eye contact. Shaking leg throughout session, was pacing pack and forth before. Speech is normal. Mood is neutral and affect is full, congruent. No movement disorders evident, mild psychomotor agitation. Thought process is tangential. Thought content is positive for vague grandiose statements, disorganized sentences. Denies wishes to harm parents and no evidence of SI. Insight and judgment are poor. A: 27 year old man w/ drug use, significant psychiatric history, has been admitted for several days and remains anxious, pressured and disorganized. Has some manipulative drug seeking behavior as evidenced in the chart. 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 Rec: Address dynamic risk factors continue current meds, encourage group and milieu socialization. Discussed adjusting some of his meds (lithium, gabapentin and nicotine patch) to ease anxiety and he declined, requesting mostly ativan. Discussed about physical exercise to decrease his anxiety/pacing.
[2017-12-19] VITALS (8 sets, daily range): BP systolic 132–139; BP diastolic 71–85
--- NOTE | 2017-12-19 16:32 | CP SOUTH PROGRESS NOTE PSYCH ---
Psych (Inpt) Progress Note Progress Note Include the following elements, when applicable: Involvement in the active treatment of the patient with behavioral observations of the patient and the patient's response to the treatment. Review of the ongoing treatment process in the context of the treatment plan. Indication of how multi-disciplinary staff members are carrying out the treatment plan. Plans for future interventions and recommendations for revision of the treatment plan. Liaison with other physicians/providers. Progress Note: states that he screwed himself coming here b/c he might lose his job. Jewell trapped living at home, couldn't go anywhere b/c he had issues with his license. Spoke about his parents, ambivalent about how he feels about them, saying they are good people then saying they got him in trouble. states that he has finances and could get a few days of work and then get his own apartment. Other unfocused , inconsistent statements. Stated that he "lied" about the hallucinations and other statements in order to get away when asked about voices. Appears more subdued and less pressured compared to yesterday. MSE: anxious young man, pleasant with fair eye contact. Quiet and much less agitated compared to yesterday. Mood is neutral and affect is constricted, reactive, congruent. No movement disorders evident. Thought process is more goal directed but at times gets derailed. Thought content is positive for vague grandiose statements, with further discussion more disorganization. Denies wishes to harm parents and no evidence of SI. Insight and judgment are poor. A: 27 year old man w/ drug use, significant psychiatric history, has been admitted for several days and remains anxious, pressured and disorganized. Has some manipulative drug seeking behavior as evidenced in the chart. Today appears calmer, more sedated and overall less disorganized. Rec: Continue current plan of care.
[2017-12-20 07:43] VITALS: BP 114/71
[2017-12-20 08:08] VITALS: BP 114/71
--- NOTE | 2017-12-20 10:13 | SOCIAL WORKER PROG NOTE PSYCH ---
Social Work Progress Note Progress Note Edison approached me this morning to talk about discharge. He stated he was feeling better and that he was just a depressed and experiencing some panic attacks when he got here. He seemed to be minimizing what was going on, including his drug use. I confronted him on that. He then said "I messed up." He went on to say that he needs to get back on track and that he needs to get his own place. 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 He said that it wasn't what led to his relapse and that right now the money is good. I asked him if he had talked to his parents over the weekend? He said he had and they are on board with his plan. I told him I'd like to call his Father this morning together. He asked to make the call. I told him to go ahead. Dad shared that he agreed that Edison needs to get his own place again and just focus on his recovery. Dad was advocating that we keep Edison a little longer so he can get more time in on tx. I told him that Dr. Santa was not working with Edison today and that I would discuss things with the team. Edison got very frustrated with what his Dad was saying during the conversation. He then abruptly hung up the phone on his Father. I asked what that was about? He stated he can't listen to what his Dad is saying. He stated he feels like a little boy with the way his Father is speaking about him and to him. I told him that was not appropriate and asked if he was going to call back and apologize? He did end up picking up the phone and called his Dad back. At that point they had a private conversation for a minute and then ended the conversation. I told Edison it was understandly hard to hear what his Father has to say, but right now he needs to listen and understand what the concerns from his family are. He doesn't seem to have the tolerance right now to deal with much. Asked him how the [place] was? He said it was okay. No complaints at this point. Focused on returning to work. I told him that if he wasn't willing to go to rehab, then he really needs to commit to IOP. He said he would go to [facility]. He mentioned using medical livery or [employer] to get there from [place]. I asked if [facility] was closer? He said he's rather come to [place]. Discussed patient in team meeting and decided not to discharge today. Informed him. He asked if it was because he hung up on his Dad? I told him that it seems like he needs to be here a bit longer and he should focus on his recovery today and attend groups. Edison requested to sign in voluntarily. He was given the voluntary form. He considered signing a 3 day paper to then terminate voluntary status, but then changed his mind.
[2017-12-20 12:10] VITALS: BP 124/71
--- NOTE | 2017-12-20 12:38 | CP SOUTH PROGRESS NOTE PSYCH ---
Psych (Inpt) Progress Note Progress Note Laboratory Tests 12/20 0630 Toxicology [place] (0.6 - 1.2 mmol/L) 0.4 L Vital Signs Date Time Temp Pulse Resp B/P B/P Pulse O2 O2 Flow FiO2 Mean Ox Delivery Rate 12/20 1210 96 124/71 12/20 0907 114/71 12/20 0808 98.3 77 114/71 12/20 0743 98.3 77 114/71 12/19 2059 98.5 68 20 135/74 12/19 2004 98.5 68 135/74 12/19 2002 98.5 68 135/74 12/19 1608 79 136/71 Focused on discharge, he claims because he may lose his job if he stays longer. He reported high anxiety andf appeared restless/anxious\\ He stated that he "lied" about the hallucinations and other statements in order to get away when asked about voices. He denied feeling depressed, just jighly anxious by his account Thought process seemed coherent for the most part (with some tangents at times I did not observe grandiose delusions but this was reported over the weekend as well as thought disorder in longer conversations. Denies wishes to harm parents and no evidence of SI. A: A 27 year old man w/ drug use, significant psychiatric history, has been admitted for several days and remains anxious, pressured and disorganized. Today appears calmer, more sedated and overall less disorganized. Plan Update: Increase lithium to 600 mg BID Added PRN Ativan and increased Gabapentin because he was almost convinced that he was leaving today, but it seems that he may need more time.
[2017-12-20 16:52] VITALS: BP 139/86
[2017-12-20 20:08] VITALS: BP 133/77
[2017-12-21 07:44] VITALS: BP 139/69
[2017-12-21] MEDS ORDERED: TRAZODONE HCL100 M1 PO (08:42)
[2017-12-21] MEDS ORDERED: LITHIUM CARBON300 M4 PO (08:42)
--- NOTE | 2017-12-21 08:43 | Patient Discharge Instructions ---
Psych Discharge Inst General Discharge Information Reason for Admission: worsening anxiety Psy Discharge Primary Diag+ Unspecified Bipolar Psy Discharge Secondary Diag+ Opioid Use Disorder Summary Tests/Major Procedures Lab BUN 21 mg/dL H 12/13/17 0953 BUN/Creatinine Ratio 26.3 % H 12/13/17 0953 Creatinine 0.8 mg/dL 12/13/17 0953 Estimated GFR > 60 ml/min 12/13/17 0953 TSH &T3 &Free T4 Intrp 1.700 uIU/mL 12/17/17 1135 [place] 0.4 mmol/L L 12/20/17 0630 Urine Cocaine Screen 384 NG/ML H 12/13/17 1230 Urine Opiates Screen 361 NG/ML 12/13/17 1230 Studies Pending at DC: will need [place] level in 4-5 days Patient Instructions Contact Information Your Psychiatrist on [facility] was Julian Burciaga MD * If you are experiencing an emergency related to this hospitalization, please call [phone] to contact the treating psychiatrist or the psychiatrist-on- call. * To Request a copy of your medical records, please contact the Medical Records Department at [phone]. * To request results of studies pending at the time of discharge, please call [phone]. * Continue your Medications until directed to stop by your Healthcare provider. General Medication Information Please continue to take your new medications and your continued home medications , unless otherwise indicated on your discharge medication list, or unless directed by your MD or VP [employer] to stop them. Special Instructions Diet Regular Activity Normal - Tobacco Use Treatment Offered Post DC Medications Offered: Refused Tob Medication Tx Post DC Tobacco Treatment Plan: Refused Tobacco Tx Pgm - EtOH/Drug Use D/O Treatment Offered Post DC Medications Offered: Med Not Indicated for D/O Post DC EtOH/SubAbuse TX Plan: Kris SubAbuse/Dual IOP Metabolic Screening Patient on a neuroleptic(s) . Enter below results for Hemoglobin A1C, and lipid panel if obtained during the last 365 days. BMI: 31 (Height 5 9 weight 210 Lbs Blood Pressure: 139/69 Laboratory Results From [facility] (If applicable): Lab BUN 21 mg/dL H 12/13/17 0953 BUN/Creatinine Ratio 26.3 % H 12/13/17 0953 Creatinine 0.8 mg/dL 12/13/17 0953 Estimated GFR > 60 ml/min 12/13/17 0953 TSH &T3 &Free T4 Intrp 1.700 uIU/mL 12/17/17 1135 [place] 0.4 mmol/L L 12/20/17 0630 Urine Cocaine Screen 384 NG/ML H 12/13/17 1230 Urine Opiates Screen 361 NG/ML 12/13/17 1230 Advance Directives Does the Patient have Medical Advance Directives No/Refused further info Does Pt have Psychiatric Advance Directives? No/Refused further info Does Patient have a Designated Surrogate Decision Maker: No Information About Psychiatric Advance Directives Provided? Refused Discharge Plan Post Hospital Treatment Plan: [facility]
--- NOTE | 2017-12-21 08:56 | SOCIAL WORKER PROG NOTE PSYCH ---
Social Work Progress Note Progress Note Dr. Burciaga and I met with Edison this morning to assess readiness for discharge. Reports a 0 for anxiety today on a scale from 0/10 (10 being most severe). Denies any other symptoms. Feels a little down about how he "screwed up" and now he has to start over and work on his goals. Continues to make statements like "he was on top of the world" last year. He continues to say that things have fallen apart since moving into his parents home. When asked what his triggers are for relapse? He says "the town of [facility] ". Asked what he meant by that? He stated that he has grown up there and just developed a reputation and when people think you are a "peice of shit", basically he internalizes that which leads to relapse. Tried to ask about his commitment to IOP? He said it could help with his court case and if he can make it to work he can go to IOP. He would need to do a day program. Reports that he can use [place] or [employer] for IOP. He said he isn't sure he definetely still has his job, but states he'll be fine if he doesn't. Wants to get his own apartment or a room to rent so he doesn't have to continue to remain at home with family. Reminded him about no benzo use while in the program. Dr. Burciaga offered him some Neurontin for anxiety but he wasn't interested. I asked if he had a Narcan kit at home? He said yes and that his family knows how to use it. A while later Edison approached me on the unit and stated that he doesn't think he'll be able to get to IOP and he can't commit to it. He mentioned going to [place] or somewhere else. I told him that I didn't think the [place] was a good situation due to the drug use around that area. After discussing further with Dr. Burciaga we decided to give Edison a OPS appt. Scheduled an intake for 12/28 at 10:45am and a med evaluation on 01/17 with Guillermina Swenson APRN.
--- NOTE | 2017-12-21 10:30 | CP SOUTH PROGRESS NOTE PSYCH ---
Psych (Inpt) Progress Note Progress Note Current Medications Sig/Pennie Start time Last Medication Dose Route Stop Time Status Admin Baclofen 10 MG Q6P PRN 12/15 1145 DC PO Clonidine 0.05 MG BID 12/20 1000 DC 12/20 PO 12/21 1001 0907 Clonidine 0.05 MG Q6P PRN 12/17 1700 DC PO Dicyclomine HCl 20 MG Q6P PRN 12/15 1145 DC PO Gabapentin 600 MG TID 12/20 1051 AC 12/21 PO 0738 Gabapentin 300 MG Q8 12/14 0742 DC 12/20 PO 0447 Gabapentin 300 MG Q6P PRN 12/13 1915 DC 12/19 PO 1833 [place] Carbonate 600 MG 0800,12/20 AC 12/21 PO 0739 [place] Carbonate 600 MG DAILY@12/17 DC 12/19 PO 2019 [place] Carbonate 300 MG 0800 12/17 1100 DC 12/20 PO 0906 Lorazepam 0.5 MG ONE ONE 12/20 1100 DC 12/20 PO 12/20 1101 1058 Lorazepam 1 MG Q6-PRN PRN 12/20 1100 AC 12/21 PO 0740 Lorazepam 1 MG ONE ONE 12/20 1030 DC 12/20 PO 12/20 1031 1029 Lorazepam 2 MG Q2P PRN 12/15 1145 DC PO Lorazepam 1 MG Q2P PRN 12/15 1145 DC PO Lorazepam 2 MG Q6P PRN 12/14 1430 AC IM Multivitamins 1 TAB DAILY@0800 12/15 1145 DC 12/20 PO 0906 Nicotine 14 MG DAILY@0812/15 1145 AC 12/21 TOP 0739 Olanzapine 10 MG Q12P PRN 12/14 1415 AC IM Olanzapine 5 MG Q2-3 HRS NEEDED.. 12/14 1400 AC 12/20 PO 1406 Oxcarbazepine 150 MG BID 12/17 2200 DC 12/20 PO 12/20 220 0906 Trazodone HCl 100 MG AT BEDTIME 12/20 2300 AC 12/20 PO 2310 Trazodone HCl 50 MG AT BEDTIME NEED.. 12/19 2100 DC 12/19 PO 205 Vital Signs Date Time Temp Pulse Resp B/P B/P Pulse O2 O2 Flow FiO2 Mean Ox Delivery Rate 12/22 743 98.2 86 139/69 12/21 2007 99.3 97 133/77 12/20 1652 97 139/86 12/20 1210 96 124/71
[2017-12-21 12:20] VITALS: BP 133/69
--- NOTE | 2017-12-21 13:41 | DISCHARGE SUMMARY REPORT-PSYCH ---
Visit Information Visit Dates/Diagnosis' Admission Date: 12/14/17 Discharge Date: 12/21/17 Reason for Admission: worsening anxiety Psy Discharge Primary Diag: Unspecified Bipolar Psy Discharge Secondary Diag: Opioid Use Disorder Hospital Course Course Allergies: Coded Allergies: Cephalosporins (Severe, tongue swelling 08/14/17) haloperidol (From HALDOL) (Severe, tongue swelling 08/14/17) Discharge HBIPS - Tobacco Use Treatment Offered - EtOH/Drug Use D/O Treatment Offered Metabolic Screening - Screen if on a Neuroleptic Medication - Metabolic screening should include: - Blood Pressure, BMI, Glucose or Hgb A1c, & a - Lipid profile from within the past 365 days. Discharge Instructions General Discharge Information Discharge Diet Regular Discharge Activity Normal Referrals Ordered Referrals Provider Referral 12/28/17 For Groups: Outpatient Psychiatry [facility] Intake 10:45am on 12/28/17 [address] [place] [id number] [id number] Provider Referral 01/17/18 For Groups: Outpatient Psychiatry [facility] appt. 01/17/18 8:30am with Guillermina Swenson APRN [address] [place] [address] Provider Referral 12/22/17 For Groups: Outpatient Psychiatry Smoking Cessation Group 12/22/17 4pm [facility] [address] [place] [id number] Prescriptions Stop taking the following medications: Gabapentin (Gabapentin) 300 MG CAPSULE ORAL EVERY 8 HOURS Qty = 45 Oxcarbazepine (Trileptal) 150 MG TABLET ORAL TWICE DAILY Qty = 60 Bupropion HCl (Bupropion XL) 300 MG TAB.ER.24H ORAL DAILY @8 AM Qty = 15 Start taking the following new medications: Trazodone HCl (Trazodone HCl) 100 MG TABLET 100 [place] ORAL AT BEDTIME as needed for insomnia Qty = 14 No Refills Comments: Last Taken:12/20/17 Time:2200 [place] Carbonate ([place] Carbonate) 300 MG CAPSULE 600 Milligram ORAL 0800,2000 Qty = 30 No Refills Comments: Last Taken:12/21/17 Time:0800 Studies Pending at Discharge will need [place] level in 4-5 days
--- NOTE | 2017-12-21 16:07 | SOCIAL WORKER PROG NOTE PSYCH ---
Social Work Progress Note Faxed Referral(s) Referred To: [facility] Transition of Care Documents sent: Health Summary Faxed to: [facility] Fax #: [phone] Faxed by: Alis Cohen Date faxed: 12/21/17 Time Faxed: 1400
== END 2017-12-21 12:38 | DRG 753 ==
LOC: ERH 08:54 → CP SOUTH 12-14 11:13 → ERHI 12-14 11:13 → ENTRNSPT 12-14 11:32 → EDTRNSPTSTS 12-14 11:42 → CP SOUTH 12-14 11:49 → CMPTRNSPT 12-14 11:50 → CP SOUTH 12-14 11:50
PROVIDERS: Emergency Medicine; Psychiatry & Neurology Psychiatry
DX: F31.9 Bipolar disorder, unspecified (principal); F11.10 Opioid abuse, uncomplicated
CPT/HCPCS: 36415; 80307; 81001; 81003; 87389; 93005; 93010; 96372; G0463; G0480; J3490

== ENCOUNTER 2018-03-21 20:41 | Inpatient (IN) | payer OTHER ==
[~2018-03-21] VITALS: Ht 175.3 cm; Wt 102.1 kg
[~2018-03-21 20:41] MED LIST changes: +LITHIUM CARBON300 M4 PO; +TRAZODONE HCL100 M1 PO
--- NOTE | 2018-03-21 21:00 | ED GENERAL ADULT ---
History of Present Illness General Chief Complaint: ETOH/Drug Related Complaint Stated Complaint: BIBA FOR ETOH/SI Source: EMS Exam Limitations: poor historian Vital Signs & Intake/Output Vital Signs & Intake/Output Vital Signs Date Time Temp Pulse Resp B/P B/P Pulse O2 O2 Flow FiO2 Mean Ox Delivery Rate 03/226 97 139/73 03/22 2034 97.6 88 138/74 03/22 2027 97.6 88 138/74 03/22 2005 97.8 84 16 149/84 98 Room Air 03/22 1408 97.5 95 15 151/78 95 Room Air 03/22 1223 98.2 79 19 126/78 94 Room Air 03/22 0819 97.8 81 18 123/80 98 Room Air ED Intake and Output 03/23 0000 03/22 1200 Intake Total Output Total Balance Patient 237 lb Weight Allergies Coded Allergies: Cephalosporins (Severe, tongue swelling 08/14/17) haloperidol (From HALDOL) (Severe, tongue swelling 08/14/17) Reconcile Medications [employer] Carbonate 300 MG CAPSULE 600 MG PO 0800,1999 Bipolar Trazodone HCl 100 MG TABLET 100 MG PO AT BEDTIME PRN insomnia Triage Note: PT BIBA, FOUND ON STREET, +ETOH AND PT IS +SI. CALM AND COOPERATIVE AT THIS TIME. ADMITS TO DRINKING "A FEW" BEERS TODAY. Triage Nurses Notes Reviewed? yes Onset: Abrupt Duration: unknown duration Timing: recent history HPI: 03/21/18 11 PM 27-year-old male brought in by EMS for agitation, depression and suicidal ideation. According to EMS he is been complaining of suicidal ideation. The patient states he is thinking about hanging himself. He says that he has a history of depression and that he is allergic to Haldol. He says he does take Klonopin. (Francisco Lujan DO) Past History Travel History Traveled to [place] past 21 day No Medical History Any Pertinent Medical History? see below for history Neurological: NONE EENT: NONE Cardiovascular: NONE Respiratory: NONE Hepatic: NONE Renal: NONE Musculoskeletal: NONE Psychiatric: anxiety, depression, opioid dependence, substance abuse, PTSD Endocrine: NONE Blood Disorders: NONE Cancer(s): NONE TRANSFORMATION ARCHITECT/Reproductive: NONE History of MRSA: No History of VRE: No History of CDIFF: No Tetanus Vaccine: 05/20/15 Surgical History Surgical History: none Psychosocial History Who do you live with Family Services at Home None What is your primary language Mohawk Tobacco Use: Refused to answer ETOH Use: heavy use Illicit Drug Use: denies illicit drug use Family History Family History, If Any: OTHER (Denies any significant family history.). Hx Contributory? No (Francisco Lujan DO) Review of Systems Review of Systems Constitutional: Denies: fever. EENTM: Reports: no symptoms. Respiratory: Denies: short of breath. Cardiovascular: Denies: chest pain. GI: Reports: no symptoms. Genitourinary: Reports: no symptoms. Musculoskeletal: Reports: no symptoms. Skin: Reports: no symptoms. Neurological/Psychological: Reports: depressed. Hematologic/Endocrine: Reports: no symptoms. Immunologic/Allergic: Reports: no symptoms. (Francisco Lujan DO) Physical Exam Physical Exam General Appearance: alert, awake, anxious, severe distress Head: atraumatic, normal appearance Ears, Nose, Throat: normal pharynx, hearing grossly normal Neck: normal inspection, supple, full range of motion Respiratory: normal breath sounds, chest non-tender, no respiratory distress Cardiovascular: regular rate/rhythm Peripheral Pulses: 4+ radial (R), 4+ radial (L) Gastrointestinal: soft, non-tender Back: normal range of motion Extremities: normal inspection, normal range of motion, no edema Neurologic/Psych: no motor/sensory deficits, alert, oriented x 3 Skin: intact, normal color, warm/dry Core Measures ACS in differential dx? No CVA/TIA Diagnosis: No Sepsis Present: No Sepsis Focused Exam Completed? No (Francisco Lujan DO) Progress Differential Diagnoses I considered the following diagnoses in my evaluation of the patient: [Alcohol intoxication, psychosis, bipolar disorder, substance abuse, k-2 abuse, hallucinogenic abuse, cocaine abuse] Plan of Care: Orders Procedure Date/time Status South Sitter/Safety Monitor 03/23 UNK Active Regular Diet 03/22 D Active Vital Signs 03/22 2031 Active Inpt Psych Teach/Educate 03/22 2031 Active Nutritional Intake, Monitor 03/22 2031 Active INPT Psych Sitter 03/22 2031 Active Inpt Psych Auricular Acupunctu 03/22 2031 Active Restraint- Behavioral (Order) 03/22 1406 Complete Patient Data - inpatient psych 03/22 1240 Active Admit to inpatient psych 03/22 1240 Active Continuous Observation Monitor 03/22 1153 Complete CIWA 03/22 0145 Active Vital Signs 03/22 UNK Active INPT Psych Sitter 03/22 UNK Complete Activity/Ambulation 03/22 UNK Active Intake & Output 03/219 Complete Current Medications Sig/Pennie Start time Last Medication Dose Stop Time Status Admin Chlorpromazine 100 MG TID 03/22 2100 AC 03/22 (Thorazine 100MG) 2034 Al Hydroxide/Mg 30 ML Q4-6 PRN PRN 03/22 2030 AC Hydroxide (Maalox Plus) Lorazepam 2 MG Q4 HRS NEEDED PRN 03/22 2030 AC (Ativan) Lorazepam 1 MG Q4 HRS NEEDED PRN 03/22 2030 AC 03/22 (Ativan) 2034 Magnesium Hydroxide 30 ML AT BEDTIME NEED.. 03/22 2030 AC (Milk Of Magnesia) Nicotine 2 MG Q2 HRS NEEDED PRN 03/22 2030 AC (Nicotine) Acetaminophen 650 MG Q4P PRN 03/22 181 AC (Tylenol) Clonazepam 1 MG TID 03/22 1400 AC 03/22 (Klonopin 1MG Tab) 03/29 1359 1602 Divalproex Sodium 250 MG TID 03/22 1400 AC 03/22 (Depakote) 2032 Gabapentin 600 MG TID 03/22 1400 AC (Neurontin) [employer] Carbonate 300 MG 0800,1400,2000 03/22 1400 AC 03/22 ([employer] Carbonate) 2032 Initial ED EKG: none (Francisco Lujan DO) Comments: 03/22/2018 8:03:34 AM patient signed out to me by Dr. José at shift supervisor policy change clerks. 03/22/2018 11:51:54 AM by crisis, Edison is being committed for his safety. 03/22/2018 1:47:10 PM Edison is becoming increasingly agitated and has threatened to elope repeatedly. Security officers are with him currently. I have discussed his case with the on-call psychiatrist recommends another 2 mg of Ativan. 03/22/2018 2:06:50 PM Edison continues to escalate. He is refusing medications and verbal intervention. He presents a danger to himself and ED staff. Unfortunately we will need to restrain him. 03/22/2018 7 PM Patient signed out to Dr. Desir at shift supervisor policy change clerks. (Maren TEJEDA,Francisco Palacio) Departure Departure Disposition: STILL A PATIENT Condition: Stable Referrals: Patient Has No Primary Care Dr (PCP/Family) Departure Forms: Customer Survey General Discharge Information Comments Labs were sent, IM Ativan was given, a sitter was ordered. Crisis consultation was requested. The patient was signed out to Dr. José at 11 PM (Francisco Lujan DO) Departure Comments pt to be signed out to dr. bustos, 03/22/18, 7am. (Arnav TEJEDA,Conrad Campbell) Departure Clinical Impression Primary Impression: Depression (emotion) Qualifiers: Depression Type: unspecified Qualified Code: F32.9 - Major depressive disorder, single episode, unspecified Secondary Impressions: Substance abuse, Suicidal ideation (Maren TEJEDA,Francisco Palacio) Critical Care Note Critical Care Note Critical Care Time: 30-74 min (Francisco Lujan DO)
[2018-03-21 21:32] LABS: ABSOLUTE BASOPHIL COUNT 0 /CUMM (0.0-0.2); ABSOLUTE EOSINOPHIL COUNT 0.1 /CUMM (0.0-0.7); ABSOLUTE GRANULOCYTE CT 7.5 /CUMM (1.4-6.5); ABSOLUTE LYMPH COUNT 1.8 /CUMM (1.2-3.4); ABSOLUTE MONOCYTE COUNT 0.7 /CUMM (0.10-0.60); BASOPHIL % 0.4 % (0.0-2.0); GRANULOCYTE % 73.4 % (42.2-75.2); HEMATOCRIT 46.8 % (42-52); MEAN CORPUSCULAR HGB 30.8 PG (27.0-31.0); MEAN CORPUSCULAR HGB CONC 34.1 G/DL (33.0-37.0); MEAN CORPUSCULAR VOLUME 90.2 FL (80.0-94.0); MEAN PLATELET VOLUME 8.2 FL (7.4-10.4); PLATELET COUNT 283 /CUMM (130-400); RBC DISTRIBUTION WIDTH 13.4 % (11.5-14.5); RED BLOOD CELL CT 5.18 /CUMM (4.70-6.10); WHITE BLOOD CELL COUNT 10.2 /CUMM (4.8-10.8)
--- NOTE | 2018-03-22 11:39 | ED PSYCH CRISIS CONSULTATION ---
Crisis Consult Basic Assessment Date of Consult: 03/22/18 Responsible Person/Accompanied By: self Insurance Authorization: Insurance #1: Insurance name: SAADIA SANCHEZ Phone number: Policy number: [id number] Group number: Authorization number: ED Provider: Patient's ED Provider: Francisco Lujan DO Primary Care Physician: Patient's PCP: Patient Has No Primary Care Dr PCP's Phone Number: Current Psychiatrist: Dr. Blackman Chief Complaint: ETOH/Drug Related Complaint Patient's Quote: "I want to go home" Present Illness: Pt was BIBA from the street. Per EMS he was found on the street intoxicated making SI statements. Pt's BAL was 89 and UDS is positive for PCP and Cocaine. Patient told Dr. Lujan (ED attending physician) that he was thinking of hanging himself. Crisis attempted to evaluate patient but he was focused on wanting to go home. He refused to answer questions about suicidal ideation, intent, or plans. Pt was last seen by Crisis in December 2017 and was referred to IOP. Pt did not show for 2 intakes and was referred to OPS. He did not show for that intake either. Pt has had 2 inpatient psych hospitaliations since December 2017 ([facility] and [place]) as well as 4 previous CPS hospitalizations. His most recent hospitalization was at [facility], discharing on 03/14/18. Per father, Justin Whyte ([phone]), pt was inpatient for 3 weeks. Father shared that the pt tried to hang himself on the unit and was in 4 point restraints twice while inpatient. Per father, pt's heart rate dropped when he tried to hang himself. Father states he thought that the plan was to get the patient a truck terminal manager psychiatric bed but then the hospital discharged the patient without a family meeting. Father states he was told the pt was going to have a hearing on the unit but was discharged without it. Father read part of the discharge paperwork from [facility] to this architectural sales consultant. He was diagnosed with unspecified mood disorder, polysubstance abuse, Personality Disorder and Psychotic Disorder. It is unclear where the patient was referred to at discharge. Pt did share that he had an appointment with Dr. Blackman today at 8:30 a.m. Father reports the patient takes his medications only when he's on an inpatient psych unit. Father states pt was set up with a visiting nurse through [facility] (Linnette Krishnamurthy) who comes 1x/ week. We discussed convservatorship and the father appeared overwhelmed by the process as it was explained to him previously. Father does not think he can keep pt safe anymore. Father reports he has been out of control for the week since he's discharged. Father is afraid the patient will kill himself. Pt reportedly put a chain dog collar on his neck last week and was looking for a place to hang himself in their home. Per dad, pt has made SI statements to pt's mom, dad, and sister. Father thinks the patient needs truck terminal manager psychiatric hospitalization. Of note, father mentioned that patient has court in [place] [id number] on 03/23/[address] in [place] on 03[place]24/18 [id number]. Per Public Rrecord, court in [place] for reckless driving and in [place] for Criminal Mischief and BOP. Father is requesting letters be faxed to those courts the date he is supposed to appear if he is in our inpatient unit. Per med reconcile, patient was prescribed the following medications post discharge from [facility]: Clonazepam 1 mg TID, [place] 300 mg TID, Gabepentin 400mg TID, Depakote ER 500 mg (1000mg at bed time) and Thorzine 150 mg TID. Crisis discussed patient with on-call psychiarist. Pt placed on PEC. Pt to be admitted to CPS for as he is in need of acute psychiatric hospitalization. Crisis completed C-SSRS, in patient chart. Pt has the following risk factors: history of suicide attempts, interupted attempt, wishes to be , suicidal intent with plan / method, pending court cases, poor follow through with treatment, hopeless, helpless, highly impulsive behavior, substance abuse, method for suicide available. Pt has the following protective factors: living with family, suppotive family. Patient's Address: [address] [place] [address] [place] [address] Other Who Do You Live With? Family Family/Informants Interviewed: Spoke to father Justin Whyte, Allergies - Coded Allergies: Cephalosporins (Severe, tongue swelling 08/14/17) haloperidol (From HALDOL) (Severe, tongue swelling 08/14/17) Current Medications - Scheduled Medications [employer] Carbonate 300 MG CAPSULE 600 MG PO Bipolar #30 CAP Prescribed by Julian Burciaga MD on 12/21/17 Scheduled PRN Medications Trazodone HCl 100 MG TABLET 100 MG PO AT BEDTIME PRN insomnia #14 TAB Prescribed by Julian Burciaga MD on 12/21/17 Laboratory Results: Laboratory Tests 03/21/182125: Anion Gap 16, Estimated GFR > 60, BUN/Creatinine Ratio 15.6, Glucose 125 H, Calcium 10.0, Total Bilirubin 0.4, AST 22, ALT 29, Alkaline Phosphatase 60, Total Protein 7.8, Albumin 4.6, Globulin 3.2, Albumin/Globulin Ratio 1.4, CBC w Diff NO MAN DIFF REQ, RBC 5.18, MCV 90.2, MCH 30.8, MCHC 34.1, RDW 13.4, MPV 8.2 , Gran % 73.4, Lymphocytes % 18.0 L, Monocytes % 7.2, Eosinophils % 1.0, Basophils % 0.4, Absolute Granulocytes 7.5 H, Absolute Lymphocytes 1.8, Absolute Monocytes 0.7 H, Absolute Eosinophils 0.1, Absolute Basophils 0, Serum Alcohol 89.0 03/21/182051: Urine Opiates Screen < 100, Methadone Screen < 40, Barbiturate Screen < 60, Ur Phencyclidine Scrn > 72.00 H, Amphetamines Screen < 100, U Benzodiazepines Scrn 117, Urine Cocaine Screen 394 H, Urine Cannabis Screen < 5.00 Past History Past Medical History Neurological: NONE EENT: NONE Cardiovascular: NONE Respiratory: NONE Hepatic: NONE Renal: NONE Musculoskeletal: NONE Psychiatric: anxiety, depression, opioid dependence, substance abuse, PTSD Endocrine: NONE Blood Disorders: NONE Cancer(s): NONE LEATHER STRETCHER/Reproductive: NONE Psychosocial History Strengths/Capabilities: Pt has an extremely supportive family (mom, dad, sister) Physical Limitations (Interventions): None noted Psychiatric Treatment History Psych Treatment Psychiatric Treatment Yes Inpatient Treatment Yes Location of Treatment [facility] Reason for Treatment SI, substance abuse Dates of [facility] Response to Treatment poor Diagnosis by History: Opiate Dependence; Depressive disorder Substance Use/Abuse History Drug Use/Abuse 1 Substances Used/Abused Yes Substance Used/Abused Cocaine (& Crack Cocaine) First Use unk Last Used unk For how long pt has a long hx of crack cocaine and cocaine use Drug Use/Abuse 2 Substances Used/Abused Yes Substance Used/Abused Heroin First Use 19 Last Used unk Route of use IV and Intranasally Drug Use/Abuse 3 Substances Used/Abused Yes Substance Used/Abused Hallucinogens (PCP) Last Used 03/21/18 How much used/taken unk Substance Abuse Treatment Substance Abuse Treatment Past Substance Abuse TX Yes Inpatient Treatment No Outpatient Treatment Yes Location of Treatment [facility] Reason for Treatment poly substance abuse Dates of Treatment starting 2011, unclear if pt is still in tx at [facility] at this time Response to Treatment poor- patient has hx of frequent relapses Current Mental Status Mental Status Orientation: Confused Affect: Anxious Speech: Mumbled Neuro-vegetative: Anhedonia, Appetite Increased, Helpless, Loss of Interest, Sleep Disturbance Appearance Appearance- Dress/Hygiene: pt presents in blue hospital scrubs Behaviors Thought Process: Disorganized Thought Content: WNL Memory: Impaired Insight: Poor SI/HI Risk Assessment Past Suicidal Ideation/Attempts Yes Current Suicidal Ideation/Att Yes Past Homicidal Ideation/Att: No Current Homicidal Ideation/Attempts No Degree of Intent: intent and prep per father Danger To: Self Gravely Disabled: Poor Impulse Control, Poor Judgment Risk Factors: access to lethal means, history of suicide atmpts, SA/MH hospitalized, substance abuse, poor impulse control, lack of outcome concern, male, limited support Lethality Ratin (most severe) PTSD Checklist PTSD Done? 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 Carroll Date Disposition Established: 03/22/18 Time Disposition Established: 1100 Plan for Disposition - Modality: Inpatient Psychiatry Facility: [facility] Rationale for Disposition: Pt to ED with SI. Pt attempted to hang self while inpatient last week (another hospital) as well as at home per father. Pt is chronically suicidal per father. Pt is at risk to himself and require acute psychiatric inpatient stabalization. Type of IP Admission: PEC Referrals Patient Has No Primary Care Dr (PCP/Family)
--- NOTE | 2018-03-22 13:49 | IP CRISIS DIAG ASSESS PSYCH ---
Diagnostic Assessment Basic Assessment Insurance Authorization: Insurance #1: Insurance name: SAADIA SANCHEZ Phone number: Policy number: [id number] Group number: Authorization number: Authorized 3 units from 03/22/18-03/24/18. Auth # [id number] Primary Care Physician: Patient's PCP: Patient Has No Primary Care Dr PCP's Phone Number: Patient's Quote: "I want to go home" Present Illness: Pt was BIBA from the street. Per EMS he was found on the street intoxicated making SI statements. Pt's BAL was 89 and UDS is positive for PCP and Cocaine. Patient told Dr. Lujan (ED attending physician) that he was thinking of hanging himself. Crisis attempted to evaluate patient but he was focused on wanting to go home. He refused to answer questions about suicidal ideation, intent, or plans. Pt was last seen by Crisis in December 2017 and was referred to IOP. Pt did not show for 2 intakes and was referred to OPS. He did not show for that intake either. Pt has had 2 inpatient psych hospitaliations since December 2017 ([facility]) as well as 4 previous CPS hospitalizations. His most recent hospitalization was at [facility], discharing on 03/14/18. Per father, Justin Pato ([phone]), pt was inpatient for 3 weeks. Father shared that the pt tried to hang himself on the unit and was in 4 point restraints twice while inpatient. Per father, pt's heart rate dropped when he tried to hang himself. Father states he thought that the plan was to get the patient a residential psychiatric bed but then the hospital discharged the patient without a family meeting. Father states he was told the pt was going to have a hearing on the unit but was discharged without it. 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 He was diagnosed with unspecified mood disorder, polysubstance abuse, Personality Disorder and Psychotic Disorder. It is unclear where the patient was referred to at discharge. Pt did share that he had an appointment with Dr. Blackman today at 8:30 a.m. Father reports the patient takes his medications only when he's on an inpatient psych unit. Father states pt was set up with a visiting nurse through [facility] (Linnette Krishnamurthy) who comes 1x/ week. We discussed convservatorship and the father appeared overwhelmed by the process as it was explained to him previously. Father does not think he can keep pt safe anymore. Father reports he has been out of control for the week since he's discharged. Father is afraid the patient will kill himself. Pt reportedly put a chain dog collar on his neck last week and was looking for a place to hang himself in their home. Per dad, pt has made SI statements to pt's mom, dad, and sister. Father thinks the patient needs planning manager psychiatric hospitalization. Of note, father mentioned that patient has court in [place] [id number] on 03/23[address] in [place] on 03/24/18-. Per Public Rrecord, court in [place] for reckless driving and in [place] for Criminal Mischief and BOP. Father is requesting letters be faxed to those courts the date he is supposed to appear if he is in our inpatient unit. Per med reconcile, patient was prescribed the following medications post discharge from [facility]: Clonazepam 1 mg TID, [place] 300 mg TID, Gabepentin 400mg TID, Depakote ER 500 mg (1000mg at bed time) and Thorzine 150 mg TID. Crisis discussed patient with on-call psychiarist. Pt placed on PEC. Pt to be admitted to CPS for as he is in need of acute psychiatric hospitalization. Crisis completed C-SSRS, in patient chart. Pt has the following risk factors: history of suicide attempts, interupted attempt, wishes to be , suicidal intent with plan / method, pending court cases, poor follow through with treatment, hopeless, helpless, highly impulsive behavior, substance abuse, method for suicide available. Pt has the following protective factors: living with family, suppotive family. Patient's Address: [address] [place], [place] [id number] Other Who Do You Live With? Family Feel Safe Where You Live? No Marital Status: single Do You Have Children? No Primary Language? Italian Language(s) Spoken At Home: Italian Family/Informants Interviewed: Spoke to father Justin Whyte, Allergies - Coded Allergies: Cephalosporins (Severe, tongue swelling 08/14/17) haloperidol (From HALDOL) (Severe, tongue swelling 08/14/17) Current Medications - Scheduled Medications [place] Carbonate 300 MG CAPSULE 600 MG PO Bipolar #30 CAP Prescribed by Julian Burciaga MD on 12/21/17 Scheduled PRN Medications Trazodone HCl 100 MG TABLET 100 MG PO AT BEDTIME PRN insomnia #14 TAB Prescribed by Julian Burciaga MD on 12/21/17 Consequences of Psych Med Use: Per father he only takes his medications when he is inpatient. He now has a visiting nurse 1x/week Lab Results: Laboratory Tests 03/21/182125: Anion Gap 16, Estimated GFR > 60, BUN/Creatinine Ratio 15.6, Glucose 125 H, Calcium 10.0, Total Bilirubin 0.4, AST 22, ALT 29, Alkaline Phosphatase 60, Total Protein 7.8, Albumin 4.6, Globulin 3.2, Albumin/Globulin Ratio 1.4, CBC w Diff NO MAN DIFF REQ, RBC 5.18, MCV 90.2, MCH 30.8, MCHC 34.1, RDW 13.4, MPV 8.2 , Gran % 73.4, Lymphocytes % 18.0 L, Monocytes % 7.2, Eosinophils % 1.0, Basophils % 0.4, Absolute Granulocytes 7.5 H, Absolute Lymphocytes 1.8, Absolute Monocytes 0.7 H, Absolute Eosinophils 0.1, Absolute Basophils 0, Serum Alcohol 89.0 03/21/182051: Urine Opiates Screen < 100, Methadone Screen < 40, Barbiturate Screen < 60, Ur Phencyclidine Scrn > 72.00 H, Amphetamines Screen < 100, U Benzodiazepines Scrn 117, Urine Cocaine Screen 394 H, Urine Cannabis Screen < 5.00 Toxicology Screen Completed? Yes Results: positive Symptoms of Use: + cocaine + pcp Past History Past Surgical History Surgical History none Abuse/Trauma History Trauma History/Current Trauma: Denies Abuse/Trauma Treatment: n/a Legal History Current Legal Status: pt has court in two different towns this week. Have you ever been arrested? Yes Number of Arrests: [address] Dates: 03/23/18 & 03/24/18 Psychosocial History Strengths/Capabilities: Pt has an extremely supportive family (mom, dad, sister) Physical Limitations (Interventions): None noted Psychiatric Treatment History Psych Treatment Psychiatric Treatment Yes Inpatient Treatment Yes Location of Treatment [facility] Reason for Treatment SI, substance abuse Dates of [facility] 03/14/18 Response to Treatment poor Diagnosis by History: Opiate Dependence; Depressive disorder Risk Factors: access to lethal means, history of suicide atmpts, SA/MH hospitalized, substance abuse, poor impulse control, lack of outcome concern, male, limited support Substance Use/Abuse History Drug Use/Abuse minimum 12mo Hx Substances Used/Abused Yes Substance Used/Abused Hallucinogens (PCP) First Use 19 Last Used 03/21/18 How much used/taken unk For how long pt has a long hx of crack cocaine and cocaine use Route of use IV and Intranasally Substance Abuse Treatment Substance Abuse Treatment Past Substance Abuse TX Yes Inpatient Treatment No Outpatient Treatment Yes Location of Treatment [facility] Reason for Treatment poly substance abuse Dates of Treatment starting 2011, unclear if pt is still in tx at [facility] at this time Response to Treatment poor- patient has hx of frequent relapses Sexual History Sexually Active No Sexual Concerns: none Education History Highest Level of Education: some college Current Mental Status Mental Status Orientation: Confused Affect: Anxious Speech: Mumbled Neuro-vegetative: Anhedonia, Appetite Increased, Helpless, Loss of Interest, Sleep Disturbance Appearance Appearance- Dress/Hygiene: pt presents in blue hospital scrubs Behaviors Thought Process: Disorganized Thought Content: WNL Memory: Impaired Insight: Poor SI/HI Risk Assessment - Minimum 6mo History- Past Suicidal Ideation/Attempts Yes Current Suicidal Ideation/Att Yes Past Homicidal Ideation/Att: No Current Homicidal Ideation/Attempts No Degree of Intent: intent and prep per father Danger To: Self Gravely Disabled: Poor Impulse Control, Poor Judgment Risk Factors: access to lethal means, history of suicide atmpts, SA/MH hospitalized, substance abuse, poor impulse control, lack of outcome concern, male, limited support Lethality Ratin (most severe) Needs/Init TX Plan/Goals: Psychiatric Assessment Medication Evaluation Comphrensive Psychosocial Assessment eliminate suicidality AUDIT-C Questionnaire: AUDIT-C Questionnaire: Response Value ETOH use in the past year Monthly or less 1 # drinks typical/day 3 or 4 1 6 or > drinks per occasion Less than monthly 1 Total 3 DSM5/PS Stressors/Medical Prob Diagnosis' (DSM 5, Stressors, Medical): F31.9 Unspecified Bipolar Disorder F14.20 Stimulant Use Disorder-Cocaine- Severe 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
[2018-03-22 20:27] VITALS: BP 138/74
[2018-03-22 20:34] VITALS: BP 138/74
[2018-03-22 22:36] VITALS: BP 139/73
[2018-03-23 08:31] VITALS: BP 104/59
[2018-03-23 08:32] VITALS: BP 104/59
--- NOTE | 2018-03-23 09:46 | History & Physical ---
General Information and HPI MD Statement: I have seen and personally examined NETTE NINO and documented this H&P. The patient is a 27 year old M who presented with a patient stated chief complaint of "I to to go home"]. Source of Information: patient, family, EMS Exam Limitations: unable to give history History of Present Illness: 27-year-old white male is brought in by ambulance for alcohol and suicidal ideations EMS noticed he was agitated depressed with suicidal ideations in about hanging himself. EMS found him on the street intoxicated making the suicidal ideation statements his blood alcohol level was 89 and also the blood tested positive for PCP and cocaine. For all these reasons is admitted. Per father patient not safe at home. Allergies/Medications Allergies: Coded Allergies: Cephalosporins (Severe, tongue swelling 08/14/17) haloperidol (From HALDOL) (Severe, tongue swelling 08/14/17) Home Med list [place] Carbonate 300 MG CAPSULE 600 MG PO 0800,1999 Bipolar Trazodone HCl 100 MG TABLET 100 MG PO AT BEDTIME PRN insomnia Compliance With Home Meds: POOR Past History Travel History Traveled to [place] past 21 day No Medical History Neurological: NONE EENT: NONE Cardiovascular: NONE Respiratory: NONE Gastrointestinal: NONE Hepatic: NONE Renal: NONE Musculoskeletal: NONE Psychiatric: anxiety, depression, opioid dependence, substance abuse, PTSD Endocrine: NONE Blood Disorders: NONE Cancer(s): NONE LODGING MANAGER/Reproductive: NONE History of MRSA: No History of VRE: No History of CDIFF: No Isolation History: Standard Tetanus Vaccine: 05/20/15 Surgical History Surgical History: unobtainable Past Family/Social History Family History Relations & Conditions if any OTHER (Denies any significant family history.). Psychosocial History Where do you live? Home Services at Home: None Primary Language: Polish ETOH Use: heavy use Illicit Drug Use: denies illicit drug use Functional Ability Ambulation: independent Review of Systems Review of Systems Constitutional: Reports: see HPI. Exam & Diagnostic Data Last 24 Hrs of Vital Signs/I&O Vital Signs Date Time Temp Pulse Resp B/P B/P Pulse O2 O2 Flow FiO2 Mean Ox Delivery Rate 03/23 0832 88 97 104/59 03/23 0831 97.4 88 104/59 03/226 97 139/73 03/22 2034 97.6 88 138/74 06/19 2027 97.6 88 138/74 03/22 2005 97.8 84 16 149/84 98 Room Air 03/22 1408 97.5 95 15 151/78 95 Room Air 03/22 1223 98.2 79 19 126/78 94 Room Air Intake & Output 03/23 1600 03/23 0800 03/23 0000 Intake Total Output Total Balance Patient 237 lb Weight Physical Exam General Appearance Alert, Oriented X3, No Acute Distress Skin No Rashes, few tattoos the left arm HEENT PERRLA, EOMI Neck Supple, No JVD, No thryomegaly Lymphatic Axillary nl, Cervical nl Cardiovascular Regular Rate, No Murmurs Lungs Clear to Auscultation, Normal Air Movement Abdomen Soft, No Tenderness, No Hepatospenomegaly Neurological Exam Findings: Strength at 5/5 X4 Ext, Normal Tone, Sensation Intact, pacing in the unit Cranial Nerves II through XII: Intact Extremities No Edema, Normal Pulses Vascular Normal Pulses, Pulses Symmetrical Last 24 Hrs of Labs/Markus: Laboratory Tests 03/21/182125: Anion Gap 16, Estimated GFR > 60, BUN/Creatinine Ratio 15.6, Glucose 125 H, Calcium 10.0, Total Bilirubin 0.4, AST 22, ALT 29, Alkaline Phosphatase 60, Total Protein 7.8, Albumin 4.6, Globulin 3.2, Albumin/Globulin Ratio 1.4, CBC w Diff NO MAN DIFF REQ, RBC 5.18, MCV 90.2, MCH 30.8, MCHC 34.1, RDW 13.4, MPV 8.2 , Gran % 73.4, Lymphocytes % 18.0 L, Monocytes % 7.2, Eosinophils % 1.0, Basophils % 0.4, Absolute Granulocytes 7.5 H, Absolute Lymphocytes 1.8, Absolute Monocytes 0.7 H, Absolute Eosinophils 0.1, Absolute Basophils 0, Serum Alcohol 89.0 03/21/182051: Urine Opiates Screen < 100, Methadone Screen < 40, Barbiturate Screen < 60, Ur Phencyclidine Scrn > 72.00 H, Amphetamines Screen < 100, U Benzodiazepines Scrn 117, Urine Cocaine Screen 394 H, Urine Cannabis Screen < 5.00 Diagnostic Data ITS Data Unobtainable at this time Assessment/Plan As Ranked By This Provider Problem List: 1. Bipolar disorder, unspecified 2. Substance abuse 3. Suicidal ideation Miscellaneous Miscellaneous Documentation Attending Case Discussed With: Gualberto TEJEDA,Julian Primary Care Physician: Patient Has No Primary Care Dr Patient sees these Specialists Psychiatry Level of Patient Care: [facility] Consults Needed: Consulting Specialty: Psychiatry Consulting Physician: Dr. Santa Reason for Consult: suicidal ideations, bipolar disease, substance abuse
[2018-03-23 12:05] VITALS: BP 110/68
--- NOTE | 2018-03-23 12:52 | CPS PROVIDER INIT ASMT PSYCH ---
Psychiatric Admission Tack Puller's Note Reviewed: Yes Patient Seen and Examined: Yes Identifying Information: The patient is a 27-year-old single white male Chief Complaint: The patient complained of high anxiety and wanting to leave Reaction to Hospitalization: The patient was admitted on a physician emergency certificate, he does not want to be in the hospital. History of Present Illness Onset of Illness: The patient is known to have mental illness at least since 2014, probably much longer than that. The current episode seems to be dating back to a few weeks now. He reported that he was buying Xanax on the's to treat and was taking up to 5 bars (2 mg each) daily Circumstances Leading to Admission: According to the notes of Brenda Triana LCSW (dated 03/22/18): "Pt was BIBA from the street. Per EMS he was found on the street intoxicated making SI statements. Pt's BAL was 89 and UDS is positive for PCP and Cocaine. Patient told Dr. Lujan (ED attending physician) that he was thinking of hanging himself. Crisis attempted to evaluate patient but he was focused on wanting to go home. He refused to answer questions about suicidal ideation, intent, or plans. Pt was last seen by Crisis in December 2017 and was referred to IOP. Pt did not show for 2 intakes and was referred to OPS. He did not show for that intake either. Pt has had 2 inpatient psych hospitaliations since December 2017 ([facility] and [facility]) as well as 4 previous CPS hospitalizations. His most recent hospitalization was at [facility], discharing on 03/14/18. Per father, Justin Whyte ([phone]), pt was inpatient for 3 weeks. Father shared that the pt tried to hang himself on the unit and was in 4 point restraints twice while inpatient. Per father, pt's heart rate dropped when he tried to hang himself. Father states he thought that the plan was to get the patient a solutions sales consultant psychiatric bed but then the hospital discharged the patient without a family meeting. Father states he was told the pt was going to have a hearing on the unit but was discharged without it. Father read part of the discharge paperwork from [facility] to this senior clinician. He was diagnosed with unspecified mood disorder, polysubstance abuse, Personality Disorder and Psychotic Disorder. It is unclear where the patient was referred to at discharge. Pt did share that he had an appointment with Dr. Blackman today at 8:30 a.m. Father reports the patient takes his medications only when he's on an inpatient psych unit. Father states pt was set up with a visiting nurse through [facility] (Linnette Krishnamurthy) who comes 1x/ week. We discussed convservatorship and the father appeared overwhelmed by the process as it was explained to him previously. Father does not think he can keep pt safe anymore. Father reports he has been out of control for the week since he's discharged. Father is afraid the patient will kill himself. Pt reportedly put a chain dog collar on his neck last week and was looking for a place to hang himself in their home. Per dad, pt has made SI statements to pt's mom, dad, and sister. Father thinks the patient needs assisted psychiatric hospitalization. Of note, father mentioned that patient has court in [place] [address] on 03/23/[address] in [place] on 03/24/18 [place]. Per Public Rrecord, court in [place] for reckless driving and in [place] for Criminal Mischief and BOP. Father is requesting letters be faxed to those courts the date he is supposed to appear if he is in our inpatient unit. Per med reconcile, patient was prescribed the following medications post discharge from [facility]: Clonazepam 1 mg TID, [place] 300 mg TID, Gabepentin 400mg TID, Depakote ER 500 mg (1000mg at bed time ) and Thorzine 150 mg TID. Crisis discussed patient with on-call psychiarist. Pt placed on PEC. Pt to be admitted to CPS for as he is in need of acute psychiatric hospitalization." Problem(s) Justifying Need for Admission: Allegedly the patient made suicidal statements to his family members (father, mother, and sister) Past Psychiatric History Past Diagnosis(es)- if any: Unspecified anxiety disorder. Unspecified mood disorder. Polysubstance use disorder (cocaine, heroin). Sedative/hypnotic Use Disorder Cocaine Use Disorder PTSD Past Precipitating Factors- if any: Relapse to substance use, the patient's urine this time around was positive for PCP and cocaine - Include inpatient and outpatient treatment Treatment History: multiple hospitalizations, please see crisis workers' notes. Looks like since his last hospitalization at [facility] he was hospitalized at both [facility] as well as [facility] History of Suicide Attempts or Gestures The patient denied suicide attempts, however the record indicates that there has been some attempts in the past the details are not very clear Substance Abuse History: The patient's urine toxicology this time around was positive for PCP and cocaine. The patient does have history of using tobacco, alcohol, cocaine, opiates The patient claimed that he was buying Xanax on the street and using 5 bars a day (i.e. 10 mg of Xanax a day he said for the past 2-3 weeks since his discharge from [facility]) Allergies: Coded Allergies: Cephalosporins (Severe, tongue swelling 08/14/17) haloperidol (From HALDOL) (Severe, tongue swelling 08/14/17) Home Med List: According to the notes of Brenda Triana LCSW (dated 03/22/18): "patient was prescribed the following medications post discharge from [facility]: Clonazepam 1 mg TID, [place] 300 mg TID, Gabepentin 400mg TID, Depakote ER 500 mg (1000mg at bed time) and Thorzine 150 mg TID. " - Include any medical condition(s) that may - impact the patient's recovery/remission Past Medical History: The patient denied any significant physical health issues Past History Medical History Neurological: NONE EENT: NONE Cardiovascular: NONE Respiratory: NONE Gastrointestinal: NONE Hepatic: NONE Renal: NONE Musculoskeletal: NONE Psychiatric: anxiety, depression, opioid dependence, substance abuse, PTSD Endocrine: NONE Blood Disorders: NONE Cancer(s): NONE MICROBIOLOGY COORDINATOR/Reproductive: NONE History of MRSA: No History of VRE: No History of CDIFF: No Isolation History: Standard Tetanus Vaccine: 05/20/15 Surgical History Surgical History: none Psychiatric Family/Social Hx Family History Psychiatric Illness: The patient denied that there is family history of psychiatric illnesses Substance Use: Patient reported that his father may have an issue with alcohol Suicides: Patient denied family history of suicides Other Family History: He lives with his parents in [place], [place] Social History Living Situation: With parents Significant Relationships (family/friends): Parents and sister Education: Reportedly he was only 1 semester shy of his bachelor's degree at [employer] Vocation/Occupation: Currently unemployed he reported that he has 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 - #1 Recognizing dangerous situations. - #2 Coping Skills. - #3 Basic information about quitting. Status of Tobacco Cessation Counseling: #1, #2 AND #3 Completed Cessation Med Status Nicotine Gum Ordered Alcohol Screening - ETOH screen POS if BAL >=80 or Audit-C>= M4/F3 Audit-C Score from Diag Assess: 3 Blood Alcohol Level: Laboratory Tests 03/21 2126 Toxicology Serum Alcohol (<10 MG/DL) 89.0 Alcohol Use Screening Results: Pos per Audit C &/or BAL - If ETOH counseling indicated - the following topics are required. - #1 Express concern about the patient's - drinking at unhealthy levels, include informing - of national norms for moderate drinking: - men <= 14 drinks/week, max 4 drinks/occasion - women <= 7 drinks/week, max 3 drinks/occasion - #2 Providing feedback, including linking alcohol to - negative physical effects (liver injury, hypertension) - negative emotional effects (relationship problems and - depression) - negative occupational consequences (reduced work - performance) - #3 Advising the patient to abstain from alcohol or - to drink below national norms for moderate drinking - (as listed above). Status of ETOH Use Counseling: #1, #2 AND #3 Completed. Metabolic Screening - Screen if on a Neuroleptic Medication - Metabolic screening should include: - Blood Pressure, BMI, Glucose or Hgb A1c, & a - Lipid profile from within the past 365 days. Metabolic Screening Patient on a neuroleptic(s) . Enter below results for Hemoglobin A1C, and lipid panel if obtained during the last 365 days. BMI: 35.000 Blood Pressure: 110/68 Laboratory Results From [facility] (If applicable): Lab Amylase 33 U/L 11/04/124 Cholesterol 151 MG/DL 12/15/17 0600 Cholesterol/HDL Ratio 2.8 % 12/15/17 06 HDL Cholesterol 53 mg/dL 12/15/17 0600 Hemoglobin A1c 4.8 % 08/15/17 0935 LDL Cholesterol, Calc 86 mg/dL 12/15/17 0600 Triglycerides 62 mg/dL 12/15/17 0600 Exam and Plan Mental Status Examination Ambulation Status: The patient was steady on his feet. Appearance: overweight young white male Attitude towards examiner: He was cooperative Psychomotor activity: Increased psychomotor activity with agitation since morning and was given multiple doses of Ativan Behavior: Agitated and restless and pacing Quality of speech: Spoke normally, he was not slurred even after several milligrams of Ativan Affect: Constricted affect Mood: He reported that he was anxious denied he was depressed Suicidal Ideation: Denied thinking of suicide Homicidal Ideation: Denied thinking of violence or homicide Hallucinations: He denies hallucinations. Paranoid/Delusional Material: He denied feeling paranoid, there were no specific delusions during the interview. Difficulties with thought organization: This was difficult to psychiatric clinical nurse specialist today. Insight: Poor Judgment: Poor Orientation: Oriented to place and person Cognition: Seems to have some difficulties with attention and concentration (may be a side effect of medications) Memory Function: Could not be accurately assessed today Estimate of intellectual functioning: Average Assets/Strengths Patient Identified Assets/Strengths: The patient is intelligent and resourceful, he does have a supportive family. Impression/Plan Impression and Plan: 27-year-old single white male who was admitted because of concern about safety. The patient was admitted against his will because he did not think that he needed to be hospitalized. However the collateral information from the father revealed that he has been having serious difficulties since December. Patient was discharged from inpatient psychiatric unit at [facility] on December 21, 2017 However it seems that the patient has been at least hospitalized twice during that time interval including [facility] and [facility]. This time around he comes in with positive drug screen for PCP and cocaine - Include all active medical diagnosis that require tx DSM 5 Diagnosis(es): Unspecified bipolar disorder Cocaine use disorder Other substance use disorder (hallucinogenPCP) Substance-induced psychotic disorder - Initial Tx Plan for Active Psych & Medical Conditions Treatment Plan: Inpatient psychiatric care with safety checks every 15 minutes - Factors that would help patient function - in a less restrictive setting. Factors: The patient will be discharged when his psychosis, disorganization, agitation has resolved and if he continues to deny thoughts of suicide.
--- NOTE | 2018-03-23 13:09 | SOCIAL WORKER PROG NOTE PSYCH ---
Social Work Progress Note Progress Note Attempted to complete Social History for this patient; however patient was pacing rapidly, and had a 1:1 sitter, and staff asked that patient not be seen for History, and it was apparent that it could be detrimental for patient to proceed.
[2018-03-23 16:18] VITALS: BP 128/62
--- NOTE | 2018-03-23 17:18 | SOCIAL WORKER PROG NOTE PSYCH ---
Social Work Progress Note Progress Note This freelance copywriter met with patient. He denied SI/HI/AH/VH and stated that he was upset about being admitted. He reported only experiencing anxiety. He denied any history of SI. Patient refused a family meeting. Patient stated that he drinks alcohol occassionally, which contributed to the current admission. He denied any other substance use. Patient stated that he feels safe on this unit. He would like to be referred to [facility] upon discharge, as he stated that he had an intake, but did not attend due to this admission. Patient confirmed that he had court scheduled. A letter was faxed to [address] ([phone] at 4: 25pm today, per Keiry at the despatching and receiving clerk's office, fax attn to the despatching and receiving clerk; next court date is 04/13/18 - patient was informed) and [address] ([phone] at 4: 22pm today, per Severiano at the despatching and receiving clerk's office, fax attn: despatching and receiving clerk's office). Patient signed PREMA's and reviewed letters prior to faxing. Letters were filed in his chart. Patient was minimally engaged in this meeting. He maintained constant eye contact and responded briefly to questions asked. Patient's report of use and symptoms were inconsistent with preivous documentation.
[2018-03-23 19:54] VITALS: BP 142/76
--- NOTE | 2018-03-24 08:44 | CP SOUTH PROGRESS NOTE PSYCH ---
Psych (Inpt) Progress Note Progress Note Treatment team (DUSTY, RN, OTR/L & Activities Therapist, Psychiatrist) discussed the Pt.'s progress, treatment plan, and aftercare plans. Vital Signs Date Time Temp Pulse B/P B/P O2 03/24 0847 97.5 90 127/81 03/23 1954 97.8 104 142/76 03/23 1618 100 128/62 03/23 1205 98 110/68 Mental Status Examination The patient was demanding and entitled. He was restless and pacing. He is medication focused. He was steady on his feet. He was marginally cooperative, showed increased psychomotor activity and irritability he was not slurred, he showed constricted affect He reported that he was anxious and restless and asking for Klonopin Denied thinking of suicide, he denied violent thoughts and denied thinking of homicide He denies hallucinations. He denied feeling paranoid, there were no specific delusions during the interview. He has poor insight and judgment. He was oriented to place and person Seems to have some difficulties with attention and concentration Assessment: Edison is a 27-year-old Single white male who was admitted because of concern about safety. The patient was admitted against his will comes in with positive drug screen for PCP and cocaine Diagnosis(es): Unspecified bipolar disorder Cocaine use disorder Other substance use disorder (hallucinogenPCP) Substance-induced psychotic disorder Treatment Plan: Add PRN Zyprexa for agitation (to replace Chlorpromazine) Resume/start Chlorpromazine 100 mg PO TID Increase Olanzapine to 10 mg at bedtime Resume/change [place] to 300 mg BID D/C PRN Chlorpromazine 50 MG Q6P PRN Continue Clonazepam 1 MG 0800 & 1600Hours, & 3 MG AT BEDTIME Gabapentin 600 MG FOUR TIMES A DAY 06PO Cocaine use disorder Other substance use disorder (hallucinogenPCP) Substance-induced psychotic disorder Treatment Plan: Inpatient psychiatric care with safety checks every 15 minutes Treatment Plan: Inpatient psychiatric care with safety checks every 15 minutes
[2018-03-24 08:47] VITALS: BP 127/81
[2018-03-24 15:57] VITALS: BP 144/86
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
--- NOTE | 2018-03-24 17:28 | SOCIAL WORKER PROG NOTE PSYCH ---
Social Work Progress Note Progress Note This automobile service writer received a call from Caty Acosta at [facility] at the [address] in [place] stating that a letter was requested informing of hospitalization as patient has court today. This automobile service writer returned the call and spoke with Terrie ([phone]) informing that the letter was faxed to the brokerage clerk yesterday. Terrie requested that another letter is faxed to them at [phone], attn: Caty Acosta. Patient was informed of this and signed a PREMA. The letter was reviewed by the patient prior to faxing ([phone]) and a confirmation sheet indicated that it was received at 11:28am. This automobile service writer received a call/vm from Caty Acosta stating that they received the letter and that a new court date is scheduled for 04/14/18. She also shared that the patient's public health technologist is Segment Assembler Trinity Peralta and that she can be reached at [phone], ext. [phone] if patient would like to contact her. Patient was informed, but refused this number. Patient submitted a probable cause request after being informed of the process by La Nolen RN ([facility]) and this automobile service writer. Dr. Burciaga signed the hearing request form. This, along with the $225 check and waiver of fees (completed by the patient) was submitted to the probate court. A receipt was provided upon delivery. Forms were filed in the patient's chart. This automobile service writer met with patient. We walked around the unit during the discussion. He stated that he was feeling anxious (10/10) and some depression. He denied SI /HI/AH/VH. Patient appeared anxious and irritated, however, able to engage in the conversation appropriately and spontaneously. Upon his inquiry, patient was informed that the forms had been submitted to the [address] today regarding the request for a probably cause hearing.
[2018-03-24 19:33] VITALS: BP 119/60
[2018-03-24 21:07] VITALS: BP 115/52
[2018-03-24 23:47] VITALS: BP 116/67
--- NOTE | 2018-03-25 08:45 | CP SOUTH PROGRESS NOTE PSYCH ---
Psych (Inpt) Progress Note Progress Note Treatment team (DUSTY, RN, OTR/L & Activities Therapist, Psychiatrist) discussed the Pt.'s progress, treatment plan, and aftercare plans. Vital Signs: Date Time Temp Pulse Resp B/P 03/25 1032 97.1 89 20 116/67 03/24 2347 89 116/67 03/24 2122 94 115/52 03/24 2107 97.1 94 20 115/52 03/24 1933 99.0 99 119/60 Mental Status Examination: The patient continues to pace the unit. He was demanding and entitled. He was steady on his feet. He was marginally cooperative, increased psychomotor activity and irritability he was not slurred, he showed constricted affect, he is focused on getting discharged. His probable cause hearing was scheduled for Wednesday. He endorsed anxiety but denied depression, he denied thinking of suicide, he denied violent thoughts and denied thinking of homicide He denies hallucinations. 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 He was oriented to place and person, difficulties with attention and concentration Assessment: Edison is a 27-year-old Single white male who was admitted because of concern about safety (EMS reported that he was on the street intoxicated making SI statements). The patient was admitted against his will positive drug screen for PCP and cocaine He remains irritable and easily agitated and pacing. He has received very high doses of benzodiazepines on the in the first 24 hours he was on the unit which did not seem to have made a big difference. The patient reported that he was taking too much Xanax and taking more of his Klonopin Klonopin he was buying the Xanax on the streets but the Klonopin was prescribed at [facility] at his last discharge Diagnoses: Unspecified bipolar disorder/Unspecified Psychotic Disorder Cocaine use disorder Other substance use disorder (hallucinogenPCP) Substance-induced psychotic disorder Treatment Plan: Increase the frequency of PRN Zyprexa for agitation Reduce chlorpromazine to 100 mg BID Increase Olanzapine to 15 mg at bedtime continue [place] to 300 mg BID Reduce Clonazepam to 1 MG 0800 & 1600Hours, & 2 mg AT BEDTIME Increase Gabapentin to 900 mg TID
--- NOTE | 2018-03-25 15:17 | SOCIAL WORKER PROG NOTE PSYCH ---
Social Work Progress Note Progress Note [facility] concurrent review: Requested Start Date 03/25/2018 Member Name NETTE NINO Provider Name [facility], Vendor ID [id number] Type of Request CONCURRENT Provider ID [id number] Provider Alternate ID [id number] NPI # for Authorization [id number]
--- NOTE | 2018-03-25 18:32 | SOCIAL WORKER PROG NOTE PSYCH ---
Social Work Progress Note Progress Note This automobile service writer was informed by nursing that the patient locked himself in the bathroom, made threatening comments, wandered into patient rooms and refused vitals last night. Patient was given an IM last night and placed in restraints. They also stated that the patient identified restraings has helpful. This automobile service writer contacted the [address] and was informed (confirmed by Rosio at the court) that all necessary documents for the probably cause hearing were received and the hearing has been scheduled for 03/28/16 at 2:30pm. This automobile service writer met with patient. He was informed of the hearing date/time. Patient described his mood as "crappy" due to losing "everything." He identified his job as something he lost, but would not provide further information. Patient rated his anxiety at a 10/10 and his depression at a 6/10. This automobile service writer attempted to assist patient in identifying coping skills or strategies to manage his symptoms and irritability. He was unable to do so. Patient stated that he will speak with the psychiatrist tomorrow about medications.
--- NOTE | 2018-03-26 08:35 | CP SOUTH PROGRESS NOTE PSYCH ---
Psych (Inpt) Progress Note Progress Note Treatment team (DUSTY, RN, OTR/L & Activities Therapist, Psychiatrist) discussed the Pt.'s progress, treatment plan, and aftercare plans. Remains on one-to-one observation because last night he reportedly attempted to fashion something to tie around his neck. Vital Signs Date Time Temp Pulse B/P 03/26 1022 97.2 82 120/59 03/26 0939 89 116/67 Mental Status Examination: The patient is pacing less. He seemed a little bit more polite and less demanding/ less entitled. He was steady on his feet. He was marginally cooperative, less irritability, he was not slurred, he showed constricted affect , did not bring up discharge today. He was able to offer an explanation of why his urine toxicology screen did not show benzodiazepines. He reported that he ran out of Xanax 3 or 4 days before his presentation to the emergency room and that he was abusing Klonopin instead (our lab does not turkey picker Klonopin as a benzodiazepines on the urine toxicology) He endorsed anxiety and believes that he is going through benzodiazepine withdrawal which may be reasonable. Although denied depression, he was attempting to fashion a noose yesterday, he is still on one-to-one for safety purposes He denied violent thoughts and denied thinking of homicide. He denies hallucinations. 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 He has poor insight and poor judgment. Assessment: Edison is a 27-year-old Single White male who was admitted on 03/22/2018 because EMS reported that the patient "was on the street intoxicated making suicidal statements". positive drug screen for PCP and cocaine The negative drug screen for benzodiazepines was explained by the patient does he was in the few days prior to his presentation to the emergency department abusing the Klonopin not Xanax, and our lab at [facility] does not turkey picker Klonopin as a positive toxicology for benzodiazepines Diagnoses: Unspecified bipolar disorder/Unspecified Psychotic Disorder Cocaine use disorder Other substance use disorder (hallucinogenPCP) Substance-induced psychotic disorder Treatment Plan: Change IM PRN Zyprexa to 5mg [id number] PRN for agitation Reduce chlorpromazine to 75 mg TID Continue Olanzapine 15 mg at bedtime continue [place] 300 mg BID Increase Clonazepam to 2 mg TID PO Increase Gabapentin to 1200 mg TID Olanzapine 5 MG Q6P PRN 03/26 110 Propranolol HCl 20 MG TID Chlorpromazine 100 MG TID 03/26 1400 AC Clonazepam 2 MG TID 03/26 1017 AC 03/26 PO 04/02 1016 1029 Clonazepam 2 MG AT BEDTIME 03/25 2100 DC 03/25 PO 04/01 2059 203 Clonazepam 1 MG 0800 03/25 0800 DC 03/26 PO 04/01 0759 0938 Clonazepam 3 MG AT BEDTIME 03/24 2100 DC 03/24 PO 03/31 2059 2348 Clonazepam 1 MG 1600 03/24 1600 DC 03/25 PO 03/31 1559 1724 Gabapentin 1,200 MG TID 03/26 1400 AC PO Gabapentin 900 MG TID 03/25 1400 DC 03/26 PO 0939 Gabapentin 600 MG FOUR TIMES A DAY 03/24 1400 DC 03/[address] [place] Carbonate 300 MG BID 03/24 0905 AC 03/26 PO 0939 Magnesium Hydroxide 30 ML AT BEDTIME NEED.. 03/22 2030 AC PO Olanzapine 5 MG Q8P PRN 03/26 1100 AC IM Olanzapine 5 MG Q6P PRN 03/26 1100 AC PO Olanzapine 15 MG AT BEDTIME 03/25 2100 AC 03/25 PO 2028 Olanzapine 10 MG Q4 HRS NEEDED PRN 03/25 1145 DC 03/25 IM 1917 Olanzapine 10 MG Q4 HRS NEEDED PRN 03/25 1145 DC PO Olanzapine 10 MG AT BEDTIME 03/24 2100 DC PO Propranolol HCl 20 MG TID 03/26 1400 AC PO Propranolol HCl 20 MG TID 03/24 1431 DC 03/26 PO 0939
[2018-03-26 10:22] VITALS: BP 120/59
[2018-03-26 12:13] VITALS: BP 113/68
[2018-03-26 17:06] VITALS: BP 113/60
[2018-03-26 19:44] VITALS: BP 138/84
[2018-03-27 08:12] VITALS: BP 140/78
--- NOTE | 2018-03-27 08:29 | CP SOUTH PROGRESS NOTE PSYCH ---
Psych (Inpt) Progress Note Progress Note Remains on one-to-one observation (Wednesday night (03/25), he attempted to fashion sheets into something to tie around his neck). 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 He denies hallucinations. 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 Assessment: Edison is a 27-year-old Single White Male who was admitted on 03/22/2018 because he "was on the street intoxicated and making suicidal statements". His drug screen showed PCP and cocaine. The patient is finally showing some improvement today. He is no longer pacing the carotid hours, and he is not irritable and agitated. Diagnoses (updated 03/27/2018): Unspecified Psychotic Disorder Cocaine use disorder Other substance use disorder (hallucinogenPCP) Substance-induced psychotic disorder Other specified personality disorder Treatment Plan: Reduce Clonazepam to 1.5 mg TID PO Reduce chlorpromazine to 50 mg TID Reduce Propranolol to 10mg TID Continue Olanzapine 15 mg at bedtime continue [place] 300 mg BID Gabapentin to 1200 mg TID Increase Clonazepam to 2 mg TID PO Increase Gabapentin to 1200 mg TID Olanzapine 5 MG Q6P PRN 03/26 110 Propranolol HCl 20 MG TID Propranolol HCl 20 MG TID
[2018-03-27 14:43] VITALS: BP 119/69
[2018-03-28 01:43] VITALS: BP 132/61
--- NOTE | 2018-03-28 08:50 | CP SOUTH PROGRESS NOTE PSYCH ---
Psych (Inpt) Progress Note Progress Note Treatment team (DUSTY, RN, OTR/L & Activities Therapist, Psychiatrist) discussed the Pt.'s progress, treatment plan, and aftercare plans. Nursing staff reported that the patient has been refusing to take his medications. Vital Signs Date Time Temp Pulse Resp B/P 03/28 1102 97.0 96 20 132/61 03/28 0143 96 132/61 03/27 2349 03/27 2258 97.0 81 20 119/69 Mental Status Examination: The patient reported that he has no intention of taking any of his medications. He reported that he did not take any of his medications including the Klonopin this morning. He reported that the medications "make him fat" He is back to pacing and being irritable, he reports that he is anxious, denied violent thoughts and denied thinking of homicide. He denies hallucinations, denied feeling paranoid, thought content and thought process could not be adequately evaluated, poor attention and concentration, and poor insight and poor judgment. Assessment: Edison is a 27-year-old Single White Male who was admitted on 03/22/2018 because he "was on the street intoxicated and making suicidal statements". His drug screen showed PCP and cocaine. After showing some improvement over the weekend, he is back to refusing to take any medications and he is protesting being here. There is a hearing this afternoon for probable cause. 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
[2018-03-28 15:43] VITALS: BP 113/68
--- NOTE | 2018-03-28 16:18 | SOCIAL WORKER PROG NOTE PSYCH ---
Social Work Progress Note Progress Note The concurrent review was submitted today, which included clinical from 03/25/18. Concurrent review was never received from the 03/25/18 submission, despite the information provided as documented in a progress note on 03/25/18. This telegraphic typewriter operator spoke with Katya Dukes at [facility] ([phone]) regarding the matter. She requested that the auth is re-submitted with the request start date of 03/25/18. The progress note regarding the 03/25/18 submission was faxed to Katya (who confirmed receipt of the fax). Katya stated that there would be no penalty for the late entry due to the attempt initially made on time. Determination Status: PENDED The services requested require additional review. You will be contacted regarding the status of this request if further information is needed. An authorization decision will be made within the required timeframes and details of that decision may be found under the member's authorization history. Member Name Member ID Member Subscriber Name Subscriber ID NETTEBERTRAND NINO [id number] 1990 NETTE NINO [id number] Pended Authorization # Client Authorization # Type of Request [id number] CONCURRENT Date of Admission/ Start of Services Requested From Submission Date 03/22/2018 03/25/2018 03/28/2018 Level of Service Type of Service Level of Care Type of Care INPATIENT/HLOC Mental Health Inpatient Inpatient Hospital - Inpatient [facility]
--- NOTE | 2018-03-28 17:12 | SOCIAL WORKER PROG NOTE PSYCH ---
Social Work Progress Note Progress Note This food writer met with patient. Patient discussed thinking that he may opt not to attend today's probable cause hearing. He discussed feeling that treatment is not necessary and does not want to involve any family or other supports in his treatment. Despite his apparent resistance to treatment, he stated that if discharge today after the hearing, the patient would be agreeable to a referral to. However, patient felt that it was not likely that he would be "let go" following the hearing. This food writer and patient discussed his beliefs that he does not have any control. Upon this food writer's challenge, he did acknowledge how he has been resistant, including choosing to refuse medications. Patient denied SI/HI/AH/VH. When asked about tying a noose on Wednesday, patient denied that this was a suicide attempt of gesture. Patient attended the probable cause hearing. Patient agreed to engage in discharge planning, including involving family in treatment. The petition was withdrawn. Following the hearing, he requested to sign an PREMA for his father ( Justin Whyte) and agreed to a family meeting. A vm was left for Mr. Whyte ) in interest of scheduling a meeting.
[2018-03-28 19:29] VITALS: BP 140/78
[2018-03-29 08:18] VITALS: BP 130/84
--- NOTE | 2018-03-29 11:16 | SOCIAL WORKER PROG NOTE PSYCH ---
Social Work Progress Note Progress Note NETTE NINO [id number] 1990 NETTE NINO [id number] Pended Authorization # Client Authorization # Type of Request [id number] CONCURRENT Date of Admission/ Start of Services Requested From Submission Date 03/22/2018 03/29/2018 03/29/2018
[2018-03-29 12:08] VITALS: BP 135/77
--- NOTE | 2018-03-29 12:53 | CP SOUTH PROGRESS NOTE PSYCH ---
Psych (Inpt) Progress Note Progress Note Treatment team (DUSTY, RN, OTR/L & Activities Therapist, Psychiatrist) discussed the Pt.'s progress, treatment plan, and aftercare plans. Vital Signs: Pulse: 83 beats/minute, Temp: 97.5F; B/P: 135/77 mmHg Mental Status Examination: The patient is no longer on one-to-one. Patient continues to complain about feeling anxious, feeling restless, and making vague statements about "not feeling good" also threatening that he is "gonna lose it", is pretty much medication focused. pacing and irritable around 12:40 afternoon he reports that he is anxious, denied violent thoughts and denied thinking of homicide. He denies hallucinations, denied feeling paranoid, he was coherent and there were no specific delusions during the interview, poor attention and concentration, and poor insight and poor judgment. Assessment: Edison Whyte is a 27-year-old Single White Male who was admitted to the inpatient psychiatric unit at [facility] on 03/22/2018 because he "was on the street intoxicated and making suicidal statements". His drug screen showed PCP and cocaine. The patient is back to taking his medication today. 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
[2018-03-29 15:36] VITALS: BP 136/67
--- NOTE | 2018-03-29 17:47 | SOCIAL WORKER PROG NOTE PSYCH ---
Social Work Progress Note Progress Note 11:20am: This telegraphic typewriter operator spoke with patient's father, Justin Whyte, by phone ). Mr. Whyte was not intersted in scheduling a family meeting, however, wished to shared some information with this telegraphic typewriter operator. He stated that the patient had been discharged from [facility] about 1 week from the admission. He stated that the patient attempted suicide while admitted to [facility] and that he has attempted to kill himself 4-5 times in the last 3 months. He reported concerns about threats towards others, specifically referencing that the patient will leave the stove/oven on or try to light a cigarette with the toaster. Mr. Whyte stated that he has since removed the toaster and unplugs the stove/oven. He stated that the patient cannot return home to live with his parents. He added that the patient has a history of noncompliance with treatment and medications. He stated that the patient called him 47 times last night and requested monitoring of phone access. This was relayed to nursing staff. This telegraphic typewriter operator spoke with Kenisha with [facility], , who provided a list of residential rehab programs. A vm was also left for Freddie Santos regarding the [facility] bed ([phone]) This telegraphic typewriter operator met with patient. Patient was informed that this telegraphic typewriter operator spoke with his father, who stated that the patient cannot return home at this time. Patient initially presented as resistant towards treatment recommendations, but was ultimately willing to explore residential programs. It was unclear if patient was serious about actually considering residential programs. At times patient would not engage in any treatment planning and stated that he would wait until his PEC expires to be released. This telegraphic typewriter operator and patient discussed his history of admissions, discharges, treatment noncompliance and returning to the hospital. Patient did appear to be more willing to consider an [facility] bed than other programs. At one point patient informed nursing staff that he would act on his suicidal thoughts by drowning in the fish tank, only to later stated that this was a joke and he was not being serious.
[2018-03-29 19:37] VITALS: BP 118/63
[2018-03-30 08:41] VITALS: BP 99/57
--- NOTE | 2018-03-30 10:18 | CP SOUTH PROGRESS NOTE PSYCH ---
See Addendum Psych (Inpt) Progress Note Progress Note Treatment team (DUSTY, RN, OTR/L & Activities Therapist, Psychiatrist) discussed the Pt.'s progress, treatment plan, and aftercare plans. Vital Signs: Date Time Temp Pulse B/P 03/30 0841 97.7 71 99/57 03/29 1937 98.2 85 118/63 Mental Status Examination: The patient did not complain (this morning) about feeling anxious. He continues to pace but not as bad as the past few days. He smiled appropriately today and seemed to be calm and more respectful. He did not show signs of agitation. He did not make any threats about "losing it" And he was not medication focused (this morning). He reports that his mood has improved since he has been here in his anxiety has gone down. He denied having any wishes of or thinking of suicide. denied violent thoughts and denied thinking of homicide. He denies hallucinations, denied feeling paranoid, he was coherent/ no specific delusions during the interview, poor attention/concentration, poor insight and poor judgment. Assessment: Edison Whyte is a 27-year-old Single White Male who was admitted to the inpatient psychiatric unit at [facility] on 03/22/2018 because he "was on the street intoxicated and making suicidal statements". His drug screen showed PCP and cocaine. The patient started showing improvement since yesterday. Today he seemed calm and respectful and not agitated or irritated or or making threats about losing it. He is still pacing but that has declined significantly compared to the past few days. On his irritability also, has declined significantly yesterday and today, he's less rude towards staff Diagnoses (updated 03/27/2018): Unspecified Psychotic Disorder (most likely Substance-induced psychotic disorder Cocaine Use Disorder Other Substance Use Disorder (hallucinogenPCP) Other Specified Personality Disorder (Antisocial traits) Treatment Plan Update: Increase sertraline to 100 mg every morning Reduce trazodone to 50 mg at bedtime Reduce bedtime dose of Haldol to 5 mg at bedtime Add clonidine 0.2 mg at bedtime Decrease clonazepam to 1 mg 3 times daily Clonazepam 2 MG AT BEDTIME Clonazepam 1 MG 0800 & 1300 Clonidine 0.1 MG Q4P PRN Diphenhydramine HCl 50 MG Q6P PRN Gabapentin 900 MG TID Haloperidol 5 MG AT BEDTIME PO Haloperidol 2 MG AT BEDTIME PO PO Haloperidol 5 MG Q6P PRN PO Haloperidol 5 MG Q6P PRN IM PO Lorazepam 1 MG Q6P PRN PO PO Lorazepam 2 MG Q6P PRN IM PO Sertraline HCl 50 MG DAILY Trazodone HCl 100 MG AT BEDTIME Haloperidol 5 MG AT BEDTIME 03/29 2100 AC 03/29 PO 2020 Haloperidol 2 MG AT BEDTIME 03/29 2100 AC 03/29 PO 2020 Haloperidol 5 MG AT BEDTIME 03/28 2100 DC 03/28 PO 203 Haloperidol 5 MG Q6P PRN 03/28 1200 AC 03/30 PO 0937 Haloperidol 5 MG Q6P PRN 03/28 1200 AC IM Haloperidol 2 MG Q4P PRN 03/28 1200 DC 03/29 PO 1128 Lorazepam 1 MG Q6P PRN 03/29 1245 AC 03/29 PO 2040 Lorazepam 2 MG Q6P PRN 03/28 1200 DC PO Lorazepam 2 MG Q6P PRN 03/28 1200 AC IM Lorazepam 1 MG Q4P PRN 03/28 1200 DC 03/29 PO 1128 Magnesium Hydroxide 30 ML AT BEDTIME NEED.. 03/22 2030 AC PO Sertraline HCl 50 MG DAILY 03/28 1051 AC 03/30 PO 0854 Trazodone HCl 100 MG AT BEDTIME 03/28 2300 AC 03/29 PO 2020
[2018-03-30 12:17] VITALS: BP 112/75
--- NOTE | 2018-03-30 15:11 | SOCIAL WORKER PROG NOTE PSYCH ---
See Addendum Social Work Progress Note Progress Note This public relations writer met with patient. He stated that he would like to go to a hotel after discharge or stay with a friend. Patient was unsure as to which hotel he would go to. He was not willing to authorize this public relations writer to contact his friend as he does not want his friend to be informed that he is in a psychiatric hospital or of his psychiatric history. Patient stated that he currently has funds to pay for a hotel room "for a while," however, was unsure as to how long he would be able to stay there. This public relations writer attempted to assist patient in identifying a more specific discharge plan. [facility] to which he stated that he would be interested in considering this option if it is available prior to the expiration of the PEC. Patient was also agreeable to a referral to [facility] for outpatient treatment. Patient denied SI/HI/AH/VH.
[2018-03-30 16:17] VITALS: BP 116/62
[2018-03-31 07:46] VITALS: BP 127/70
--- NOTE | 2018-03-31 11:47 | CP SOUTH PROGRESS NOTE PSYCH ---
Psych (Inpt) Progress Note Progress Note Treatment team (DUSTY, RN, OTR/L & Activities Therapist, Psychiatrist) discussed the Pt.'s progress, treatment plan, and aftercare plans. Mental Status Examination: The patient reported that he wants to leave but he is not sure what is eager to be staying. He claims that his father change his mind and is now willing to have a family meeting. The patient is showing less pacing today. He was calm although the staff reported that he would be walking the carotid or at times and saying that "I cannot take this anymore". In today's interview, he did not show signs of agitation and did not make any threats about "losing it". He started interview by saying that he is not going to take any medications later. He reports that his mood has improved. He denied having any wishes of or thinking of suicide. denied violent thoughts and denied thinking of homicide. He denies hallucinations, denied feeling paranoid, he was coherent/no specific delusions during the interview, poor attention/concentration, poor insight and poor judgment. Assessment: Edison Whyte is a 27-year-old Single White Male who was admitted to the inpatient psychiatric unit at [facility] on 03/22/2018 because he "was on the street intoxicated and making suicidal statements". His drug screen showed PCP and cocaine, Since his admission on 03/22/2019, patient is showing slow and gradual improvement and seemed calm and respectful this morning Diagnoses (updated 03/27/2018): Unspecified Psychotic Disorder (most likely Substance-induced psychotic disorder Cocaine Use Disorder Other Substance Use Disorder (hallucinogenPCP) Other Specified Personality Disorder (Antisocial traits) Treatment Plan Update: Continue Haldol 10 mg at bedtime sertraline 100 mg every morning trazodone 50 mg at bedtime clonidine 0.2 mg at bedtime clonazepam 1 mg 3 times daily
[2018-03-31 11:55] VITALS: BP 134/76
[2018-03-31 15:51] VITALS: BP 130/71
--- NOTE | 2018-03-31 15:51 | SOCIAL WORKER PROG NOTE PSYCH ---
Social Work Progress Note Progress Note This press writer spoke with patient's father, Justin Whyte, by phone. He was invited to schedule a family meeting, which has been potentially scheduled for 04/04/18 at 10:30am. Mr. Whyte will speak with his about her avialability and will be in contact with this press writer tomorrow to finalize the time. He was informed that the patient's PEC expires next week and that he may discharge on 04/05/18. Upon this press writer's inquiry as it had been mentioned by crisis clinicians, Mr. Whyte stated that they had considered conservatorship in the past, however, decided not to pursue this. Mr. Whyte confirmed that he has this press writer's number and will be in touch about the family meeting. This press writer met with patient. He described his mood as "ok" and denied SI/HI/AH /VH. Patient was informed that this press writer continues to try to obtain information about referring to an [facility] bed, to which he was still agreeable. Patient is refusing any other referral or inpatient/rehab program. This press writer spoke with Freddie Santos ([phone]) in interest of making a referral to [facility] (patient signed PREMA for [facility]). Bill Santos will fax a referral packet to this press writer.
[2018-03-31 19:19] VITALS: BP 138/82
--- NOTE | 2018-03-31 22:06 | CP SOUTH PROGRESS NOTE PSYCH ---
Psych (Inpt) Progress Note Progress Note entered in error HOME MEDS Home Med List Valatie Carbonate 300 MG CAPSULE 600 MG PO 0800,1999 Bipolar Trazodone HCl 100 MG TABLET 100 MG PO AT BEDTIME PRN insomnia Assessment/Plan Assessment/Plan entered in error Consult Acknowledgment - Thank you for your consult request. Pulse Ox 98 03/22 2005 HOME MEDS Home Med List Valatie Carbonate 300 MG CAPSULE 600 MG PO 0800,1999 Bipolar Trazodone HCl 100 MG TABLET 100 MG PO AT BEDTIME PRN insomnia Assessment/Plan Assessment/Plan - Consult Acknowledgment - Thank you for your consult request.
[2018-04-01 08:47] VITALS: BP 114/79
--- NOTE | 2018-04-01 11:31 | CP SOUTH PROGRESS NOTE PSYCH ---
Psych (Inpt) Progress Note Progress Note Treatment team (DUSTY, RN, OTR/L & Activities Therapist, Psychiatrist) discussed the Pt.'s progress, treatment plan, and aftercare plans. Vital Signs Date Time Temp Pulse Resp B/P B/P Pulse O2 O2 Flow FiO2 04/01 0847 96.0 73 114/79 03/31 2118 98.8 67 20 138/82 03/31 1919 98.8 67 138/82 03/31 1551 71 130/71 Mental Status Examination: He said that he woke up to a fairly today closer to 5:00 in the morning The patient continues to say he wants to leave, "I can't take it anymore" and making loud noises back to pacing today, in 1:1 session, he did not show signs of agitation, did not make any threats about "losing it" he thinks that his mood has improved, denied having any wishes of or thinking of suicide. denied violent thoughts and denied thinking of homicide. He denies hallucinations, denied feeling paranoid, he was coherent/no specific delusions during the interview, poor attention/concentration, poor insight and poor judgment. Assessment: Edison Whyte is a 27-year-old Single White Male who was admitted to the inpatient psychiatric unit at [facility] on 03/22/2018 because he "was on the street intoxicated and making suicidal statements". His drug screen showed PCP and cocaine, Since his admission on 03/22/2019, patient is showing slow and gradual improvement he is immature and his coping skills are limited, does not tolerate the smallest frustrations Diagnoses (updated 03/27/2018): Unspecified Psychotic Disorder (most likely Substance-induced psychotic disorder Cocaine Use Disorder Other Substance Use Disorder (hallucinogenPCP) Other Specified Personality Disorder (Antisocial traits) Treatment Plan Update: Change clonazepam to 1 mg AM and 2 mg at bedtim Increase as needed the clonidine to 0.2 mg every 4 hours as needed for anxiety agitation or restlessness not to exceed a total dose of 1 mg per day Increase trazodone to 100 mg at bedtime clonidine 0.2 mg at bedtime Continue Haldol 10 mg at bedtime sertraline 100 mg every morning
[2018-04-01 12:11] VITALS: BP 115/70
[2018-04-01 16:04] VITALS: BP 132/66
--- NOTE | 2018-04-01 16:10 | SOCIAL WORKER PROG NOTE PSYCH ---
Social Work Progress Note Progress Note [facility] concurrent review entered: Determination Status: PENDED The services requested require additional review. You will be contacted regarding the status of this request if further information is needed. An authorization decision will be made within the required timeframes and details of that decision may be found under the member's authorization history. Member Name Member ID Member Subscriber Name Subscriber ID NETTE NINO [id number] 1990 NETTE NINO [id number] Pended Authorization # Client Authorization # Type of Request [id number] CONCURRENT Date of Admission/ Start of Services Requested From Submission Date 03/22/2018 04/01/2018 04/01/2018 Level of Service Type of Service Level of Care Type of Care INPATIENT/HLOC Mental Health Inpatient Inpatient Hospital - [facility]
--- NOTE | 2018-04-01 17:34 | SOCIAL WORKER PROG NOTE PSYCH ---
Social Work Progress Note Progress Note This script writer and Endy Silva, [employer] student, met with the patient in the kitchen. He presented as agitated and anxious. Patient was given a medication by the nurse during this conversation. Patient stated that he would like to go to a hotel upon discharge. We discussed what a "safe discharge" would entail, to which patient appeared less resistant than before. As the conversation progressed, it was apparent that the patient cotninued to struggle with his anxiety. This script writer assisted the patient in identifying and assigning traits to his anxiety, which he participated in and ultimately reported a decrease in his anxiety by the end of the conversation. He accepted a distraction activity and proceeded to practice this activity. Patient approached this script writer later in the afternoon. While he appeared less anxious than prior to the earlier conversation, he stated that he continued to struggle with high anxiety. He agreed to utilize nursing staff for support and will speak with the medication nurse as needed. This script writer was informed by Dr. Burciaga that he spoke with the patient's father and a family meeting is scheduled for 04/04/18 at 11:15am.
[2018-04-01 19:38] VITALS: BP 102/52
[2018-04-02 08:16] VITALS: BP 114/72
[2018-04-02 12:31] VITALS: BP 117/69
[2018-04-02 15:56] VITALS: BP 119/61
[2018-04-02 19:27] VITALS: BP 128/66
--- NOTE | 2018-04-03 07:54 | CP SOUTH PROGRESS NOTE PSYCH ---
Psych (Inpt) Progress Note Progress Note patient interviewed on April 02, 2018 Chief Complaint Discussed overnight events with RN and staff. As per RN report, although the patient appeared to be sleeping throughout the night. No PRNs/restrains required in the last 24hrs. I saw the patient this morning with the treatment team. He reported feeling better. He denies being depressed or anxious, arguing to increase Klonapin. He denies suicidal/homicidal thoughts/intent/plans at present. He has adequate appetite and sleep. He is compliant to medications, no side effects reported and none in evidence. Vitals reviewed Vital Signs Result Date Time B/P 128/66 04/02 2027 Pulse 68 04/02 2027 Temp 98.6 04/02 1927 Resp 20 04/02 1142 O2 Delivery Room Air 03/27 2349 Pulse Ox 98 03/22 2005 Mental Status Examination Consciousness: Awake, alert Orientation: A&O x3, oriented to person, place, year, not to situation Appearance: appears stated age, dressed in casual attire, with fair hygiene Behavior: calm and cooperative Attitude: open and engaged Eye Contact: appropriate but staring at times Speech: articulate, clear and coherent Mood: better Affect: mood-congruent, constricted to dysphoric with minimal emotional reactivity Thought Process: organized Thought Content: no sxs of agitation/aggression, drug seeking behaviors requesting to increase Klonapin, denies suicidal/homicidal ideations at the time of the interview, no delusions elicited/verbalized at present Perceptions: denies audiovisual hallucinations Attention: attentive to interview Memory: grossly intact Insight: fair Judgment: limited No psychomotor abnormalities noted Motor: no abnormal movements Neuro: grossly intact Independent in ADL's and iADL's Labs Reviewed as documented in chart. Allergy Reviewed as documented in chart. Medications Reviewed as documented in chart. Current Medications Sig/Pennie Start time Last Medication Dose Route Stop Time Status Admin Acetaminophen 650 MG Q4P PRN 03/22 1815 AC PO Al Hydroxide/Mg 30 ML Q4-6 PRN PRN 03/22 2030 AC 03/27 Hydroxide PO 215 Benztropine Mesylate 1 MG Q6P PRN 03/28 1200 AC IM Clonazepam 1 MG 04/02 0800 AC 04/02 PO 04/09 0759 0818 Clonazepam 2 MG AT BEDTIME 04/01 2100 AC 04/02 PO 04/08 Clonidine 0.2 MG Q4P PRN 04/01 1130 AC 04/02 PO 1142 Clonidine 0.2 MG AT BEDTIME 03/30 2100 AC 04/02 PO 2026 Diphenhydramine HCl 50 MG Q6P PRN 03/29 1245 AC 04/02 PO 1157 Gabapentin 900 MG TID 03/28 1400 AC 04/02 PO 2026 Haloperidol 10 MG AT BEDTIME 03/30 2100 AC 04/02 PO 202 Haloperidol 5 MG Q6P PRN 03/28 1200 AC 04/02 PO 1158 Haloperidol 5 MG Q6P PRN 03/28 1200 AC IM Lorazepam 2 MG Q6P PRN 03/28 1200 AC IM Magnesium Hydroxide 30 ML AT BEDTIME NEED.. 03/22 2030 AC PO Sertraline HCl 100 MG DAILY 03/31 0900 AC 04/02 PO 0817 Trazodone HCl 100 MG AT BEDTIME 04/01 2100 AC 04/02 PO 2253 Assessment Edison is a 27-year-old White Male who was admitted with suicidal ideations and intoxication. He demonstrates drug seeking behaviors. 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
[2018-04-03 08:49] VITALS: BP 104/54
[2018-04-03 11:52] VITALS: BP 105/60
[2018-04-03 15:51] VITALS: BP 113/62
--- NOTE | 2018-04-03 18:04 | CP SOUTH PROGRESS NOTE PSYCH ---
Psych (Inpt) Progress Note Progress Note Chief Complaint Discussed overnight events with RN and staff. As per RN report, the patient appeared to be sleeping throughout the night. No PRNs/restrains required in the last 24hrs. I saw the patient this morning with the treatment team. He reported feeling anxious he is demanding be given Ativan shortly after his morning Klonopin dose. Otherwise, he appears calm and somewhat cooperative, denies suicidal/ homicidal ideations, no evidence of psychosis or mood dysregulation at present. He has adequate appetite and sleep. He is compliant to medications, no side effects reported and none in evidence. Vitals reviewed Vital Signs Date Time Temp Pulse Resp B/P B/P Pulse O2 O2 Flow FiO2 Mean Ox Delivery Rate 04/03 1551 62 113/62 04/03 1152 57 105/60 04/03 1110 96.3 59 20 104/54 Mental Status Examination Consciousness: Awake, alert Orientation: A&O x4, oriented to person, place, year, situation Appearance: appears stated age, dressed in casual attire, with fair hygiene, pacing in the unit aimlessly Behavior: calm and cooperative Attitude: open and engaged Eye Contact: appropriate Speech: articulate, clear and coherent Mood: anxious Affect: mood-congruent, constricted to dysphoric with minimal emotional reactivity Thought Process: organized Thought Content: no sxs of agitation/aggression, demonstrates drug seeking behaviors frequently approaching MD and staff for extra dose of Ativan, denies suicidal/homicidal ideations at the time of the interview, no delusions elicited /verbalized at present Perceptions: denies audiovisual hallucinations Attention: attentive to interview Memory: grossly intact Insight: fair Judgment: limited No psychomotor abnormalities noted Motor: no abnormal movements Neuro: grossly intact Independent in ADL's and iADL's Labs Reviewed as documented in chart. Allergy Reviewed as documented in chart. Medications Reviewed as documented in chart. Current Medications Sig/Pennie Start time Last Medication Dose Route Stop Time Status Admin Acetaminophen 650 MG Q4P PRN 03/22 1815 AC PO Al Hydroxide/Mg 30 ML Q4-6 PRN PRN 03/22 2030 AC 03/27 Hydroxide PO 2150 Benztropine Mesylate 1 MG Q6P PRN 03/28 1200 AC IM Clonazepam 1 MG 04/02 0800 AC 04/03 PO 04/09 0759 0915 Clonazepam 2 MG AT BEDTIME 04/01 2100 AC 04/02 PO 04/08 Clonidine 0.2 MG Q4P PRN 04/01 1130 AC 04/03 PO 1110 Clonidine 0.2 MG AT BEDTIME 03/30 2100 AC 04/02 PO 2026 Diphenhydramine HCl 50 MG Q6P PRN 03/29 1245 AC 04/03 PO 1040 Gabapentin 900 MG TID 03/28 1400 AC 04/03 PO 153 Haloperidol 10 MG AT BEDTIME 03/30 2100 AC 04/02 PO 2026 Haloperidol 5 MG Q6P PRN 03/28 1200 AC 04/03 PO 1041 Haloperidol 5 MG Q6P PRN 03/28 1200 AC IM Lorazepam 2 MG Q6P PRN 03/28 1200 AC IM Magnesium Hydroxide 30 ML AT BEDTIME NEED.. 03/22 2030 AC PO Sertraline HCl 100 MG DAILY 03/31 0900 AC 04/03 PO 09 Trazodone HCl 100 MG AT BEDTIME 04/01 2100 AC 04/02 PO 2253 Assessment Edison is a 27-year-old White Male who was admitted with suicidal ideations and intoxication. He continues to demonstrates drug seeking behaviors. 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
[2018-04-03 20:09] VITALS: BP 132/65
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
[2018-04-04 08:22] VITALS: BP 135/79
[2018-04-04 15:25] VITALS: BP 122/63
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
[2018-04-04 19:45] VITALS: BP 118/58
--- NOTE | 2018-04-04 20:47 | IP INCIDENTAL NOTE PSYCH ---
Incidental Note Notation: Correction/Plan Update: Change Gabapentin to 600 mg AM, 600 mg Q 1PM and 900 MG QHS Start Methylphenidate 20 mg Q8AM and Q1PM
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
[2018-04-05 12:03] VITALS: BP 118/71
--- NOTE | 2018-04-05 13:16 | SOCIAL WORKER PROG NOTE PSYCH ---
Social Work Progress Note Progress Note NETTE NINO [id number] 1990 NETTE NINO [id number] Pended Authorization # Client Authorization # Type of Request [id number] CONCURRENT Date of Admission/ Start of Services Requested From Submission Date 03/22/2018 04/05/2018 04/05/2018
[2018-04-05 15:37] VITALS: BP 134/67
--- NOTE | 2018-04-05 17:29 | SOCIAL WORKER PROG NOTE PSYCH ---
Social Work Progress Note Progress Note This telegraphic typewriter installer submitted the probate committment hearing paperwork to the [place] [facility] today. The form and MD fees letter were also faxed to the court at [phone] at 12:24pm today. This telegraphic typewriter installer spoke with Lashell Glaser at the probate court [phone] who stated that the hearing is anticipated to be scheduled for either 04/18 or 04/19/18. Patient was informed. This telegraphic typewriter installer met with patient. He descibed his mood as "ok" and denied SI/HI/AH/ VH. Upon his inquiry, patient and this telegraphic typewriter installer discussed ways in which he can change his behavior in order to support his treatment and goal (such as not being in the hospital).
[2018-04-05 20:06] VITALS: BP 134/92
[2018-04-06 08:57] VITALS: BP 135/74
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
[2018-04-06 11:52] VITALS: BP 127/71
[2018-04-06 15:49] VITALS: BP 134/78
[2018-04-06 19:34] VITALS: BP 144/87
--- NOTE | 2018-04-07 07:46 | CP SOUTH PROGRESS NOTE PSYCH ---
Psych (Inpt) Progress Note Progress Note Vital Signs Vital Signs Date Time Temp Pulse Resp B/P B/P Pulse O2 O2 Flow FiO2 Mean Ox Delivery Rate 04/07 1209 79 131/78 04/06 1934 99.8 98 144/87 04/06 1549 78 134/78 Mental Status Update: Pt. seemed to be in better spirits. He reported that he is not as anxious as before. He reported that he slept well last night. He reported good appetite. He was alert, oriented to person, place, year, situation, less pacing, did not show signs of agitation, no threats about "losing it", he thinks that his mood has improved, He denied having any wishes of or thinking of suicide, denied violent thoughts and denied thinking of homicide. 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
[2018-04-07 12:09] VITALS: BP 131/78
[2018-04-07 15:56] VITALS: BP 142/79
--- NOTE | 2018-04-07 17:24 | SOCIAL WORKER PROG NOTE PSYCH ---
Social Work Progress Note Progress Note This medical writer met with patient. He denied SI/HI/AH/VH and stated that he spoke with his father by phone last night which was a good conversation. Patient discussed changing behaviors on this unit and stated that he apologized to nursing staff for his behaviors. Patient stated that he has been attending some groups. He is interested in ICC referral. Patient was informed that the hearing is scheduled for 04/19/18 at 2:30pm (per Lashell Glaser at [place] [address] ). This medical writer returned Justin Whyte's call (patient's father). He requested update/ progress and was informed that paperwork has been submitted for a probate committment hearing.
[2018-04-07 19:53] VITALS: BP 136/77
--- NOTE | 2018-04-08 08:36 | CP SOUTH PROGRESS NOTE PSYCH ---
Psych (Inpt) Progress Note Progress Note Treatment team (DUSTY, RN, Group and Activities Therapist, and psychiatrist) discussed Pt.'s progress, treatment plan, and aftercare plans. Vital Signs Date Time Temp Pulse B/P 04/08 0859 97.1 91 136/78 07/ 1954 98.3 94 136/77 Mental Status Update: Pt. was friendly and pleasant today. he seemed to be in good spirits. He reported that he is not as anxious as before. He reported that he slept well last night, good appetite. He was alert, oriented to time, place and person no agitation, no threats about "losing it", he thinks that his mood has improved , denied having any wishes of or thinking of suicide, denied violent thoughts and denied thinking of homicide. 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
[2018-04-08 08:59] VITALS: BP 136/78
[2018-04-08 12:08] VITALS: BP 132/77
[2018-04-08 15:37] VITALS: BP 143/78
--- NOTE | 2018-04-08 17:35 | SOCIAL WORKER PROG NOTE PSYCH ---
Social Work Progress Note Progress Note NETTEBERTRAND NINO [id number] 1990 NETTE NINO [id number] Pended Authorization # Client Authorization # Type of Request [id number] CONCURRENT Date of Admission/ Start of Services Requested From Submission Date 03/22/2018 04/08/2018 04/08/2018 Level of Care Type of Care INPATIENT/[facility] - Inpatient Hospital Reason Code P76
--- NOTE | 2018-04-08 19:12 | SOCIAL WORKER PROG NOTE PSYCH ---
Social Work Progress Note Progress Note Clinician met with pt 1:1, he appeared sad, depressed and shared that he is very anxious of the probate hearing on 04/19/18. He is now interested in an ICC application and is encouraging the [employer] to pursue this referral. Pt states he is now feeling comfortable to attend groups and he experiencing less anxiety. Pt denies SI/HI. no evidence of AH/VH. At the end of the day Pt requested to voluntarily commit himself to the hospital instead of going through the probate hearing. "I was told that this would be better for me". Pt was encouraged to discuss this with the psychiatrist during his visit with the doctor tomorrow.
[2018-04-08 19:26] VITALS: BP 141/81
[2018-04-09 09:30] VITALS: BP 129/84
--- NOTE | 2018-04-09 11:20 | CP SOUTH PROGRESS NOTE PSYCH ---
Psych (Inpt) Progress Note Progress Note Vital Signs Date Time Temp Pulse B/P B/P Pulse O2 FiO2 04/09 1203 78 135/72 04/09 0930 97.0 95 129/84 04/08 1926 98.0 94 141/81 04/08 1537 96 143/78 Mental Status Update: friendly and pleasant today seemed to be in good spirits/not looking depressed, not looking irritable He denied feeling depressed and denied feeling anxious reported that he slept well last night, good appetite. He was alert, oriented to time, place and person no agitation, no threats about "losing it", denied having any wishes of or thinking of suicide, denied violent thoughts and denied thinking of homicide. 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
[2018-04-09 12:03] VITALS: BP 135/72
[2018-04-09 16:08] VITALS: BP 137/87
[2018-04-09 19:17] VITALS: BP 140/74
--- NOTE | 2018-04-10 08:23 | CP SOUTH PROGRESS NOTE PSYCH ---
Psych (Inpt) Progress Note Progress Note Vital Signs Date Time Temp Pulse B/P B/P Pulse O2 O2 Flow FiO2 04/10 1208 83 145/80 04/10 0932 96.6 81 145/79 04/09 1917 97.6 77 140/74 04/09 1608 74 137/87 Mental Status Update: The patient reported that he is feeling restless today compared to yesterday and he reported that he had difficulty falling asleep last night, took him to long to fall asleep but once he did he fell asleep until later in the morning Pt. denies feeling depressed and he seemed to be in good spirits/animated affect. He is alert & oriented to time, place, and person. He is calm and pleasant. He denied feeling anxious or irritable. He denies having any wishes of or thinking of suicide, denies violent thoughts and denies thinking of homicide. 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
[2018-04-10 09:32] VITALS: BP 145/79
[2018-04-10 12:08] VITALS: BP 145/80
[2018-04-10 16:04] VITALS: BP 136/79
[2018-04-10 19:31] VITALS: BP 136/78
[2018-04-11 12:08] VITALS: BP 128/79
--- NOTE | 2018-04-11 12:20 | CP SOUTH PROGRESS NOTE PSYCH ---
Psych (Inpt) Progress Note Progress Note Vital Signs Date Time Temp Pulse Resp B/P B/P Pulse O2 O2 Flow FiO2 04/11 1208 80 128/79 04/10 1931 98.3 70 136/78 04/10 1604 73 136/79 Mental Status Update: Edison was asking today to go to a long-term facility like [facility]. He reported that his mood is neither depressed nor anxious today. He denied feeling restless. He reported that he slept well last night and he seemed to be in good spirits/animated affect. He is alert & oriented to time, place, and person. He is calm and pleasant. He denies having any wishes of or thinking of suicide, denies violent thoughts and denies thinking of homicide. 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
[2018-04-11 16:05] VITALS: BP 138/74
--- NOTE | 2018-04-11 18:34 | SOCIAL WORKER PROG NOTE PSYCH ---
Social Work Progress Note Progress Note Pt signed ROIs for [place] G23 and [place] G9 courts. Then letters were faxed to the courts indicating that he pt was here in treatment at [facility]. Pt reports today that he continues to feel less anxiety. He is looking forward to being "committed" during his hearing on 04/19/18. He states he is attending groups and cooperating with staff. Pt denies SI/HI no evidence of AH/VH.
[2018-04-11 20:01] VITALS: BP 117/70
--- NOTE | 2018-04-12 08:01 | CP SOUTH PROGRESS NOTE PSYCH ---
Psych (Inpt) Progress Note Progress Note Treatment team (DUSTY, RN, Group and Activities Therapist, and psychiatrist) discussed Pt.'s progress, treatment plan, and aftercare plans. Vital Signs Date Time Temp Pulse B/P 04/12 0916 97.1 82 137/87 04/11 2001 98.5 70 117/70 Mental Status Update: Edison reported that his mood has been "okay" (neither depressed nor too anxious). however, he did acknowledge some irritability. He denied feeling restless and slept well last night. He seemed to be in good spirits/animated affect. He is alert & oriented to time, place, and person. He was calm and pleasant. He denied wishing or thinking of suicide, denied violent thoughts and denies thinking of homicide. He denies hallucinations, and denies feeling paranoid. 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
[2018-04-12 09:16] VITALS: BP 137/87
[2018-04-12 12:03] VITALS: BP 135/76
--- NOTE | 2018-04-12 14:36 | SOCIAL WORKER PROG NOTE PSYCH ---
Social Work Progress Note Progress Note Pt was appropriate, I asked him about his intense stare, he states "I think its the Ritalin, I can focus now, he alos made his bed very nicely, he stated the Ritalin helped with that too". Pt stated "Im nuts, Im nervous", in regards to the upcoming court hearing, we explored diffewrent ways things could go, and he expressed how good things seemed to be when he was lving alone but not using drugs, it was an "exciting life". Pt stated he shouldn't use PCP or Steroids, but could not make a strong connection of how not to be impulsive and live a simpler lifestyle.
--- NOTE | 2018-04-12 15:14 | SOCIAL WORKER PROG NOTE PSYCH ---
Social Work Progress Note Progress Note Determination Status: PENDED The services requested require additional review. You will be contacted regarding the status of this request if further information is needed. An authorization decision will be made within the required timeframes and details of that decision may be found under the member's authorization history. Member Name Member ID Member Subscriber Name Subscriber ID NETTE NINO [id number] 1990 NETTE NINO [id number] Pended Authorization # Client Authorization # Type of Request [id number] CONCURRENT Date of Admission/ Start of Services Requested From Submission Date 03/22/2018 04/12/2018 04/12/2018 Level of Service Type of Service Level of Care Type of Care INPATIENT/[facility] Reason Code P76 Provider Name & Address Provider ID Provider Alternate ID NPI # for Authorization RODRIGUEZ FALCON [address] [place] [id number] Message P76 Attached Documents There are no documents attached with this Authorization Request Document Title Document Description Authorization Printing & Downloading Options: (For the best print results, please print in 'Landscape' format)
[2018-04-12 16:11] VITALS: BP 127/69
[2018-04-12 20:21] VITALS: BP 139/76
--- NOTE | 2018-04-13 09:13 | CP SOUTH PROGRESS NOTE PSYCH ---
Psych (Inpt) Progress Note Progress Note Treatment team (DUSTY, RN, Group and Activities Therapist, and psychiatrist) discussed Pt.'s progress, treatment plan, and aftercare plans. Mental Status Update: Edison attributed his behavior last night (threatening towards another patient and agitated security had to be called in and he had to be medicated) to the other patient reportedly calling him profanities and allegedly the father patient told the patient "fuck your mother" because he thought that Edison cuts in front of him on the medication line." Otherwise, Edison reported that his mood has been "okay" , denied wishing or thinking of suicide, denied violent thoughts and denies thinking of homicide. alert & oriented to time, place, and person. He was calm and pleasant. denies hallucinations, and denies feeling paranoid. 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
[2018-04-13 09:49] VITALS: BP 136/75
--- NOTE | 2018-04-13 12:08 | SOCIAL WORKER PROG NOTE PSYCH ---
Social Work Progress Note Progress Note Pt continues to use pacing as a coping skill. he has not attended group, and has made several statements "I'm nuts", then asks questions reagrding length of stay and discharge planning, "when I go to the [facility], how long will it be for ?, but I think I need to do that so I can get the help i need".
[2018-04-13 12:20] VITALS: BP 113/74
[2018-04-13 15:46] VITALS: BP 146/74
[2018-04-13 19:57] VITALS: BP 136/72
--- NOTE | 2018-04-14 07:20 | CP SOUTH PROGRESS NOTE PSYCH ---
Psych (Inpt) Progress Note Progress Note Treatment team (DUSTY, RN, Group and Activities Therapist, and psychiatrist) discussed Pt.'s progress, treatment plan, and aftercare plans. Vital Signs Date Time Temp Pulse B/P B/P O2 04/14 0915 96.4 73 132/81 04/13 1957 98.9 86 136/72 04/13 1546 97 146/74 Mental Status and Behavior: staff reported that yesterday and today (so far), there were no incidents of of threatening or agitated behaviors Edison reported that his mood went down, he blames it on reduction in methylphenidate and on staff talking badly of him (he denied hallucinations but believes that he is disliked on the unit) (there is some truth to that) Today, he reported that he feels that he is a "bad person" and was wishing last night but denied thinking of suicide, denied violent thoughts and denies thinking of homicide. alert & oriented , calm but seemed on edge (may be slightly guarded/? paranoid ? 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
[2018-04-14 09:15] VITALS: BP 132/81
[2018-04-14 12:07] VITALS: BP 142/70
--- NOTE | 2018-04-14 14:19 | SOCIAL WORKER PROG NOTE PSYCH ---
Social Work Progress Note Progress Note Pt states he "feels inside", he says it with his usual glare, "I'm looking for excitement, we explore how sometimes that "excitement" has led him to make poor decisions act impulsively and end up in dangerous situations. Pt smirks, he then brings up the pending court date, I encourage pt to utilize other coping skills besides pacing which he seems to be doing a lot of. Pt court date is Wednesday.
[2018-04-14 16:09] VITALS: BP 134/77
[2018-04-14 19:27] VITALS: BP 136/76
--- NOTE | 2018-04-15 07:55 | CP SOUTH PROGRESS NOTE PSYCH ---
Psych (Inpt) Progress Note Progress Note Treatment team (DUSTY, RN, Group and Activities Therapist, and psychiatrist) discussed Pt.'s progress, treatment plan, and aftercare plans. Vital Signs Vital Signs Date Time Temp Pulse B/P B/P Pulse O2 FiO2 04/147 98.8 74 136/76 04/14 1609 89 134/77 Mental Status and Behavior: staff reported that there were no further incidents of of threatening or agitated behaviors (since the night of April 12, 2018) This morning, Edison reported that he's feeling restless. He claims that he wakes up jittery with fine tremors. he denied hallucinations There was no evidence of paranoia today. He denied wishing since the night of 13 April denied thinking of suicide, denied violent thoughts and denies thinking of homicide. alert & oriented , coherent and there were no specific delusions during the interview He showed better attention and concentration today. 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
--- NOTE | 2018-04-15 11:49 | SOCIAL WORKER PROG NOTE PSYCH ---
Social Work Progress Note Progress Note NETTE NINO [id number] 1990 NETTE NINO [id number] Pended Authorization # Client Authorization # Type of Request [id number] CONCURRENT Date of Admission/ Start of Services Requested From Submission Date 03/22/2018 04/15/2018 04/15/2018 Level of Service Type of Service Level of Care Type of Care INPATIENT/[facility]IENT [facility]ITAL
[2018-04-15 12:05] VITALS: BP 117/75
[2018-04-15 15:41] VITALS: BP 126/83
--- NOTE | 2018-04-15 17:01 | SOCIAL WORKER PROG NOTE PSYCH ---
Social Work Progress Note Progress Note Met with Edison today. He was pacing the unit - walked with him. He denied SI /HI, no AH/VH stated his depression 04/12(worst) and anxiety 09/12. He stated "I feel stuck." He is nervous about the hearing. He attended the AM group. His goal is to "stay out of trouble." Informed him Suzi Knott LCSW is returning Wednesday.
[2018-04-15 20:38] VITALS: BP 142/81
[2018-04-15 20:39] VITALS: BP 142/81
[2018-04-16 09:26] VITALS: BP 141/72
--- NOTE | 2018-04-16 11:43 | CP SOUTH PROGRESS NOTE PSYCH ---
Psych (Inpt) Progress Note Progress Note Include the following elements, when applicable: Involvement in the active treatment of the patient with behavioral observations of the patient and the patient's response to the treatment. Review of the ongoing treatment process in the context of the treatment plan. Indication of how multi-disciplinary staff members are carrying out the treatment plan. Plans for future interventions and recommendations for revision of the treatment plan. Liaison with other physicians/providers. Progress Note: Pt ntoes that "I'm good." Denies any issues, concerns or questions. He reported that sleep was poor overnight. Denies SI or HI. Current Medications Sig/Pennie Start time Last Medication Dose Route Stop Time Status Admin Acetaminophen 650 MG Q4P PRN 03/22 181 AC PO Al Hydroxide/Mg 30 ML Q4-6 PRN PRN 03/22 2030 AC 03/27 Hydroxide PO 215 Benztropine Mesylate 1 MG Q6P PRN 03/28 1200 AC 04/12 IM 213 Clonazepam 2 MG AT BEDTIME 04/13 2100 AC 04/15 PO 04/20 Clonazepam 0.5 MG AT BEDTIME 04/13 2100 AC 04/15 PO 04/20 Diphenhydramine HCl 50 MG Q6P PRN 03/29 1245 AC 04/03 PO 1040 Gabapentin 1,200 MG AT BEDTIME 04/13 2100 AC 04/15 PO 2125 Gabapentin 600 MG 0800 & 04/10 1300 AC 04/16 PO 924 Haloperidol 5 MG AT BEDTIME 04/14 2100 AC 04/15 PO 212 Haloperidol 5 MG Q6P PRN 03/28 1200 AC 04/03 PO 104 Haloperidol 5 MG Q6P PRN 03/28 1200 AC 04/12 IM 2134 Lorazepam 2 MG Q6P PRN 04/12 2100 AC PO Lorazepam 2 MG Q6P PRN 04/12 2100 AC 04/12 IM 211 Magnesium Hydroxide 30 ML AT BEDTIME NEED.. 03/22 2030 AC PO Methylphenidate HCl 30 MG 0800 & 04/15 1300 AC 04/16 PO 09 Nicotine 2 MG Q2 HRS NEEDED PRN 04/10 1100 AC 04/15 PO 2028 Propranolol HCl 20 MG TID 04/15 1041 AC 04/16 PO 926 Sertraline HCl 100 MG DAILY 03/31 09 AC 04/16 PO 926 Trazodone HCl 200 MG AT BEDTIME 04/16 2100 UNVr PO Trazodone HCl 150 MG AT BEDTIME 04/04 2100 DC 04/15 PO 2125 Vital Signs Date Time Temp Pulse Resp B/P B/P Pulse O2 O2 Flow FiO2 Mean Ox Delivery Rate 04/16 927 75 141/72 04/16 926 96.6 75 141/72 04/15 2126 98.1 81 18 142/81 04/15 2039 98.1 81 142/81 04/15 2038 98.1 81 142/81 04/15 1541 81 126/83 04/15 1304 86 117/75 04/15 1205 86 117/75 MSE Appearance: as stated age Speech : nl rate, rhythm, volume and prosody Behavior: cooperative Motor: no psychomotor agitation or retardation Mood : I'm good Affect : non-labile,very irritable, appropriate, constricted Thought process: linear and goal directed Thought content : no delusions or paranoia Perceptions: denied AVHs, denied SI or HI Insight: poor Judgment: poor A/P: Pt with unspecified bipolar disorder and PSD with improved mood though with intermittent behavioral distrubance. Continue current medication regimen except increase trazodone. Encourage integration into the milieu
[2018-04-16 12:30] VITALS: BP 127/83
[2018-04-16 16:02] VITALS: BP 137/69
[2018-04-16 19:57] VITALS: BP 132/72
[2018-04-17 10:16] VITALS: BP 124/66
--- NOTE | 2018-04-17 10:55 | CP SOUTH PROGRESS NOTE PSYCH ---
Psych (Inpt) Progress Note Progress Note Include the following elements, when applicable: Involvement in the active treatment of the patient with behavioral observations of the patient and the patient's response to the treatment. Review of the ongoing treatment process in the context of the treatment plan. Indication of how multi-disciplinary staff members are carrying out the treatment plan. Plans for future interventions and recommendations for revision of the treatment plan. Liaison with other physicians/providers. Progress Note: Pt notes that he is "OK" today. Denies SI or HI. No questions or concerns. Not interested in extended interview. Current Medications Sig/Pennie Start time Last Medication Dose Route Stop Time Status Admin Acetaminophen 650 MG Q4P PRN 03/22 181 AC PO Al Hydroxide/Mg 30 ML Q4-6 PRN PRN 03/22 2030 AC 03/27 Hydroxide PO 215 Benztropine Mesylate 1 MG Q6P PRN 03/28 1200 AC 04/16 IM 2322 Clonazepam 2 MG AT BEDTIME 04/13 2100 AC 04/16 PO 04/20 Clonazepam 0.5 MG AT BEDTIME 04/13 2100 AC 04/16 PO 04/20 2059 211 Diphenhydramine HCl 50 MG Q6P PRN 03/29 1245 AC 04/03 PO 1040 Gabapentin 1,200 MG AT BEDTIME 04/13 2100 AC 04/16 PO 211 Gabapentin 600 MG 0800 & 04/10 1300 AC 04/17 PO 1018 Haloperidol 5 MG AT BEDTIME 04/14 2100 AC 04/16 PO 2112 Haloperidol 5 MG Q6P PRN 03/28 1200 AC 04/03 PO 1041 Haloperidol 5 MG Q6P PRN 03/28 1200 AC 04/16 IM 2322 Lorazepam 2 MG .STK-MED ONE 04/16 2313 DC IM 04/16 2314 Lorazepam 2 MG Q6P PRN 04/12 2100 AC PO Lorazepam 2 MG Q6P PRN 04/12 2100 AC 04/16 IM 2322 Magnesium Hydroxide 30 ML AT BEDTIME NEED.. 03/22 2030 AC PO Methylphenidate HCl 30 MG 0800 & 1300 04/15 1300 AC 04/17 PO 1018 Nicotine 2 MG Q2 HRS NEEDED PRN 04/10 1100 AC 04/17 PO 1052 Propranolol HCl 20 MG TID 04/15 1041 AC 04/17 PO 1018 Sertraline HCl 100 MG DAILY 03/31 0900 AC 04/17 PO 1017 Trazodone HCl 200 MG AT BEDTIME 04/16 2100 AC 04/16 PO 2110 Trazodone HCl 150 MG AT BEDTIME 04/04 2100 DC 04/15 PO 2125 Vital Signs Date Time Temp Pulse Resp B/P B/P Pulse O2 O2 Flow FiO2 Mean Ox Delivery Rate 04/17 1018 124/66 04/17 1016 97.7 81 124/66 04/16 2111 76 132/72 04/16 1957 98.8 76 132/72 04/16 1602 67 137/69 04/16 1407 66 119/75 04/16 1230 85 127/83 MSE Appearance: as stated age Speech : nl rate, rhythm, volume and prosody Behavior: cooperative Motor: no psychomotor agitation or retardation Mood : OK Affect : non-labile,very irritable, appropriate, constricted Thought process: linear and goal directed Thought content : no delusions or paranoia Perceptions: denied AVHs, denied SI or HI Insight: poor Judgment: poor A/P: Pt with unspecified bipolar disorder and PSD with improved mood though with intermittent behavioral distrubance. Continue current medication regimen Encourage integration into the milieu
[2018-04-17 12:03] VITALS: BP 137/76
[2018-04-17 15:31] VITALS: BP 141/75
[2018-04-17 20:04] VITALS: BP 134/60
[2018-04-17 21:54] VITALS: BP 123/73
--- NOTE | 2018-04-18 08:08 | CP SOUTH PROGRESS NOTE PSYCH ---
Psych (Inpt) Progress Note Progress Note I reviewed Dr. Johansen's notes for Wed and April 16 and 2017 Treatment team (DUSTY, RN, Group and Activities Therapist, and psychiatrist) discussed Pt.'s progress, treatment plan, and aftercare plans. Vital Signs Vital Signs Date Time Temp Pulse Resp B/P Pulse O2 O2 Flow FiO2 04/18 1553 63 124/62 04/18 1249 97.8 92 18 136/75 04/18 1227 92 136/75 04/18 1019 97.8 81 18 124/62 04/18 0913 97.8 81 124/62 04/17 2156 99.7 58 18 123/73 04/17 2154 58 123/73 Mental Status and Behavior: staff reported that pt. had an eventful weekend, aggressive towards another patient , not following directions going to other patient's rooms, had to be placed back on 1:1 (sitter) This morning, Edison reported that he's feeling restless. He claims that he wakes up jittery with fine tremors. he denied hallucinations There was no evidence of paranoia today. He denied wishing since the night of 13 April denied thinking of suicide, denied violent thoughts and denies thinking of homicide. alert & oriented , coherent for the most part, there were no specific delusions during the interview impaired attention and concentration today. 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
[2018-04-18 09:13] VITALS: BP 124/62
[2018-04-18 12:27] VITALS: BP 136/75
--- NOTE | 2018-04-18 13:49 | SOCIAL WORKER PROG NOTE PSYCH ---
Social Work Progress Note Progress Note Pt managing mood and anxiety, he is pacing around the unit. Pt processing what his terminal computer operator plans are and is open to having senior [facility] treatment.
[2018-04-18 15:53] VITALS: BP 124/62
[2018-04-18 20:15] VITALS: BP 137/69
[2018-04-19 09:23] VITALS: BP 134/71
--- NOTE | 2018-04-19 12:09 | CP SOUTH PROGRESS NOTE PSYCH ---
Psych (Inpt) Progress Note Progress Note Treatment team (DUSTY, RN, Group and Activities Therapist, and psychiatrist) discussed Pt.'s progress, treatment plan, and aftercare plans. Vital Signs Date Time Temp Pulse Resp B/P 04/19 0932 98.3 76 18 134/71 04/19 0923 98.3 76 134/71 04/18 2052 78 137/69 Mental Status and Behavior: still on 1:1 since yesterday (for not following directions & going to other patient's rooms) reported that he's feeling anxious/restless. He claims that he wakes up anxious he denied hallucinations, there was no evidence of paranoid delusions today (may be guadedness/paranoia without delusions) denied wishing or thinking of suicide (last time he had thoughts of suicide was April 13, 2018) denied violent thoughts and denies thinking of homicide. alert & oriented , coherent for the most part, there were no specific delusions during the interview impaired attention and concentration today. 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
[2018-04-19 12:17] VITALS: BP 118/69
[2018-04-19 16:00] VITALS: BP 131/75
--- NOTE | 2018-04-19 18:06 | SOCIAL WORKER PROG NOTE PSYCH ---
Social Work Progress Note Progress Note This specification writer met with patient. He requested to have the meeting walking around the unit as he felt very anxious about the hearing scheduled for 2:30pm today. Patient stated that he did not wish to be alive, though denied having any SI or plan/thoughts to harm himself. He denied HI/AH/VH. Patient reported that he had been experiencing ongoing general anxiety. He stated that he would like to sign into a longer term hospital voluntarily and will discuss this with his body bumper as well. He was informed that his father left a vm for this specification writer and was agreeable to the call being returned. This specification writer spoke with patient's father, Mario Whyte, who wanted to inform that the patient was willing to sign into a "longer term" hospital voluntarily. Mr. Whyte stated that he planned to attend the hearing at 2:30pm as scheduled. Following the hearing at 2:30pm today, this specification writer left a vm for Cristo Renee at [phone] with a call back number.
[2018-04-19 21:11] VITALS: BP 127/60
[2018-04-20 08:28] VITALS: BP 111/70
--- NOTE | 2018-04-20 09:10 | CP SOUTH PROGRESS NOTE PSYCH ---
Psych (Inpt) Progress Note Progress Note Treatment team (DUSTY, RN, Group and Activities Therapist, and psychiatrist) discussed pt.'s progress, treatment plan, and aftercare plans. Vital Signs: Date Time Temp Pulse Resp B/P 04/20 0927 97.7 59 18 111/70 04/20 0828 97.7 59 111/70 04/19 2120 96.6 69 18 127/60 Mental Status: Pt. remains on 1:1 observation he is back to saying "I think I'm going to lose it." reported feeling anxious/restless, claims he wakes up anxious, Today, he reported audio hallucination (he reported that it is a man's voice but he does not know whose) some guadedness/general paranoia without specific delusions, he reported wishing as well as thinking of suicide in past 24 hours denied violent thoughts, denies thinking of homicide. Edison alert & oriented , coherent for the most part, there were no specific delusions during the interview impaired attention and concentration today. 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 ? Unspecified Psychotic Disorder Treatment Plan Update: Continue Klonopin 1 mg TID Continue Haldol 5 mg PO BID Continue Propranolol 30 mg TID to target restlessness Continue Gabapentin 1200 mg at bedtime Add as needed Thorazine 100 mg every 6 hours p.o. as needed for agitation or anxiety Add as needed Thorazine 100 mg IM for the every 6 hours for agitation if he refuses the p.o. medication Continue all other medications unchanged
[2018-04-20 11:51] VITALS: BP 110/59
[2018-04-20 16:08] VITALS: BP 114/62
--- NOTE | 2018-04-20 17:17 | SOCIAL WORKER PROG NOTE PSYCH ---
Social Work Progress Note Progress Note [facility] concurrent review entered: Determination Status: PENDED The services requested require additional review. You will be contacted regarding the status of this request if further information is needed. An authorization decision will be made within the required timeframes and details of that decision may be found under the member's authorization history. Member Name Member ID Member Subscriber Name Subscriber ID NETTE NINO [id number] 1990 NETTE NINO [id number] Pended Authorization # Client Authorization # Type of Request [id number] CONCURRENT Date of Admission/ Start of Services Requested From Submission Date 03/22/2018 04/20/2018 04/20/2018 Level of Service Type of Service Level of Care Type of Care INPATIENT/[facility] Mental [facility]patient [facility]
--- NOTE | 2018-04-20 18:29 | SOCIAL WORKER PROG NOTE PSYCH ---
Social Work Progress Note Progress Note This adjusto writer operator spoke with Cristo Renee regarding a referral to a [facility] facility ( voluntary). She instructed this adjusto writer operator to call [phone] ([facility] number) regarding this matter. This adjusto writer operator met with the patient. He presented as depressed and minimally engaged in the conversation. He discussed feeling upset about "where my life is now" and that he will remain in the hospital. Patient was unwilling to explore strategies to reframe his thought process. He requested to meet tomorrow. Patient remains on a one to one and stated that he lost his sheets and pillowcases "because I was a jerk." While not willing to identify strategies to manage his mood, he seemed agreeable to utilize staff for support if needed. He stated that he is safe on this unit.
--- NOTE | 2018-04-21 09:01 | CP SOUTH PROGRESS NOTE PSYCH ---
Psych (Inpt) Progress Note Progress Note Treatment team (DUSTY RN, Group and Activities Therapist, Psychiatrist) discussed pt.'s progress, treatment plan, and aftercare plans. Vital Signs: Date Time Temp Pulse Resp B/P 04/21 0948 97.3 74 107/71 04/21 0935 97.7 67 18 113/76 04/20 2237 67 113/76 Mental Status: Pt. remains on 1:1 observation. Pt. continues to be immature and impulsive. He reported feeling anxious/restless Today, he denied audio hallucination some guadedness/general paranoia without specific delusions: "I don't trust anybody, not even my dad." he reported wishing & thinking of suicide in past 24 hours/no intent, no plan denied violent thoughts and denies thinking of homicide. Edison alert & oriented, coherent for the most part, there were no specific delusions during the interview; impaired attention and concentration. 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 ? Unspecified Psychotic Disorder Treatment Plan Update: D/C as needed Thorazine 100 mg every 6 hours p.o. Add Clonidine 0.2 mg Q 6 hours PRN Change Klonopin to 3 mg QAM Continue Haldol 5 mg PO BID Continue Propranolol 30 mg TID to target restlessness Continue Gabapentin 1200 mg at bedtime Thorazine 100 mg IM for the every 6 hours for agitation if he refuses the p.o. medication
[2018-04-21 09:48] VITALS: BP 107/71
[2018-04-21 12:02] VITALS: BP 121/64
[2018-04-21 15:53] VITALS: BP 105/44
--- NOTE | 2018-04-21 18:22 | SOCIAL WORKER PROG NOTE PSYCH ---
Social Work Progress Note Progress Note This brief writer met with patient. He described his mood as "ok" and rated the following: depression at 7/10 anxiety at an 8/10 He was unable to identify any strategies to manage his symptoms. Patient remained in bed throughout this meeting and was not willing to sit up or move elsewhere. He continues to report feeling depressed over reamining in the hospital, though still willing to go to a [facility] facility. Patient was informed that the referral was faxed today. He stated that he last experienced AH ("my voice") days ago. He denied SI/HI/hallucinations. Patient was minimally engaged in this conversation, providing short responses. He requested to meet again tomorrow. Referral completed by Dr. Burciaga and this brief writer. Faxed to [facility] attn: Belen at [phone] on 04/21/18 at 1:23pm. This brief writer spoke with Belen this morning, but was unable to be provided with the anticipated length of the wait list.
[2018-04-21 19:46] VITALS: BP 124/77
--- NOTE | 2018-04-22 08:15 | CP SOUTH PROGRESS NOTE PSYCH ---
Psych (Inpt) Progress Note Progress Note Treatment team (DUSTY RN, Group and Activities Therapist, Psychiatrist) discussed pt.'s progress, treatment plan, and aftercare plans. Vital Signs: Laboratory Tests 04/22 04/22 Sodium (137 - 145 mmol/L) 143 Potassium (3.5 - 5.1 mmol/L) 4.5 Chloride (98 - 107 mmol/L) 104 Carbon Dioxide (22 - 30 mmol/L) 26 Anion Gap (5 - 16) 13 BUN (9 - 20 mg/dL) 14 Creatinine (0.7 - 1.2 mg/dL) 0.8 Estimated GFR (>60 ml/min) > 60 BUN/Creatinine Ratio (7 - 25 %) 17.5 TSH (0.270 - 4.200 uIU/mL) 2.930 Toxicology [place] (0.6 - 1.2 mmol/L) 0.3 L Urines Urine Color (YEL,AMB,STR) YEL Urine Clarity (CLEAR) CLEAR Urine pH (5.0 - 8.0) 6.5 Ur Specific [place] (1.001 - 1.035) 1.010 Urine Protein (NEG,<30 MG/DL) NEG Urine Ketones (NEG) NEG Urine Nitrite (NEG) NEG Urine Bilirubin (NEG) NEG Urine Urobilinogen (0.1 - 1.0 EU/dl) 0.2 Ur Leukocyte Esterase (NEG) NEG Ur Microscopic EXAM NOT REQUIRED Urine Hemoglobin (NEG) NEG Urine Glucose (N MG/DL) NEG Vital Signs Date Time Temp Pulse Resp B/P B/P Pulse O2 FiO2 04/22 0909 97.3 69 18 121/68 04/22 0909 97.3 69 121/68 04/21 2126 98.7 55 18 124/77 04/21 1946 98.7 55 124/77 04/21 1835 97.3 64 18 105/44 04/21 1553 64 105/44 04/21 1324 97.3 75 121/64 04/21 1202 75 121/64 Mental Status: Pt. remains on 1:1 observation. Pt. had 24 hours of good control so far. He reported feeling better and less anxious this morning, he was less restless Today, he denied audio hallucinations, less guadedness/less general paranoia no delusions he DENIED wishing or thinking of suicide in the past 24 hours he denied violent thoughts and denies thinking of homicide. He was alert & oriented, coherent for the most part, there were no specific delusions during the interview; impaired attention and concentration. 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 ? Unspecified Psychotic Disorder Treatment Plan Update: Increase [place] dose to 300 mg Q0800, 300 mg Q1400 and 450 mg Q2000 Continue Clonidine 0.2 mg Q 6 hours PRN Continue Klonopin 3 mg QAM Continue Haldol 5 mg PO BID Continue Propranolol 30 mg TID Continue Gabapentin 1200 mg at bedtime
[2018-04-22 08:51] LABS: LITHIUM 0.3 mmol/L (0.6-1.2)
[2018-04-22 09:09] VITALS: BP 121/68
[2018-04-22 12:03] VITALS: BP 116/64
[2018-04-22 16:15] VITALS: BP 107/59
--- NOTE | 2018-04-22 17:22 | SOCIAL WORKER PROG NOTE PSYCH ---
Social Work Progress Note Progress Note Upon this parts data writer's encouragement, the patient participated in the start of a group. He left early stating that he was feeling tired. This parts data writer met with the patient, who reported that he had not slept well last night and was also feeling very tired from medications. Patient struggled to stay awake during this meeting, however, stated that he wanted to meet now despite feeling so tired. Patient discussed feeling down related to life stressors such as being in the hospital and not having a job. He also shared that he regretted moving out of his apartment and back to his parents' house. While discouraged about being hospitalized, he identified how this could be helpful as it "gives me a break from home" and also briefly commented on working to find the correct medications. Patient denied SI/HI/AH/VH. This parts data writer and patient discussed goals for the weekend. Upon this parts data writer's inquiry about writing in a journal, patient stated that he would do so this weekend and identified how it will help him "get feelings out in a healthy way." He identified a second goal of "getting a good night's sleep." Patient was informed that this parts data writer received a vm from his father. He was agreeable to this parts data writer returning the call and also expressed interest in meeting with his father this weekend. This parts data writer left a vm for Justin Whyte ([phone]) in response to his vm. We spoke at 4:56pm. Mr. Whyte was informed that the referral had been submitted to [facility], however, the estimated wait time for a bed was not available. He stated that he planned to visit this weekend and while call the nurse's station ahead of time. He thanked this parts data writer for the call.
[2018-04-22 19:44] VITALS: BP 97/47
[2018-04-23 10:33] VITALS: BP 120/72
--- NOTE | 2018-04-23 11:09 | CP SOUTH PROGRESS NOTE PSYCH ---
Psych (Inpt) Progress Note Progress Note Pt notes that his sleep was "good." He decribes mood as "OK." Always has some baseline level of anxiety but does find the medications to be helpful. He denies SI or HI. Hopeful that father to visit tomorrow. Current Medications Sig/Pennie Start time Last Medication Dose Route Stop Time Status Admin Acetaminophen 650 MG Q4P PRN 03/22 1815 AC 04/23 PO 1037 Al Hydroxide/Mg 30 ML Q4-6 PRN PRN 03/22 2030 AC 03/27 Hydroxide PO 2150 Buprenorphine 16 MG .STK-MED ONE 04/22 1316 DC SL 04/22 1317 Buprenorphine/ 2 TAB ONCE ONE 04/22 1315 DC 04/22 Naloxone SL 04/22 1316 1319 Buprenorphine/ 2 TAB 0800,1700 04/22 1315 AC 04/23 Naloxone SL 1036 Chlorpromazine 150 MG Q6-PRN PRN 04/22 1315 AC PO Chlorpromazine 100 MG Q6P PRN 04/20 1115 AC IM Clonazepam 3 MG DAILY 04/22 09 AC 04/23 PO 04/29 0859 1037 Clonidine 0.2 MG .STK-MED ONE 04/22 1305 DC PO 04/22 1306 Clonidine 0.2 MG Q6-PRN PRN 04/21 1100 AC 04/22 PO 1306 Gabapentin 1,200 MG AT BEDTIME 04/13 2100 AC 04/22 PO 2123 Haloperidol 5 MG 08,04/19 2100 AC 04/23 PO 1035 [place] Carbonate 450 MG 04/22 AC 04/22 PO 2123 [place] Carbonate 300 MG 799,04/22 1400 AC 04/23 PO 1035 Magnesium Hydroxide 30 ML AT BEDTIME NEED.. 03/22 2030 AC PO Nicotine 2 MG Q2 HRS NEEDED PRN 04/10 1100 AC 04/22 PO 1250 Propranolol HCl 30 MG TID 04/18 1400 AC 04/23 PO 1035 Sertraline HCl 100 MG DAILY 04/21 09 AC 04/23 PO 1035 Trazodone HCl 200 MG AT BEDTIME 04/21 2100 AC 04/22 PO 2123 Laboratory Tests 04/22 04/22 0917 0710 Chemistry Sodium (137 - 145 mmol/L) 143 Potassium (3.5 - 5.1 mmol/L) 4.5 Chloride (98 - 107 mmol/L) 104 Carbon Dioxide (22 - 30 mmol/L) 26 Anion Gap (5 - 16) 13 BUN (9 - 20 mg/dL) 14 Creatinine (0.7 - 1.2 mg/dL) 0.8 Estimated GFR (>60 ml/min) > 60 BUN/Creatinine Ratio (7 - 25 %) 17.5 TSH (0.270 - 4.200 uIU/mL) 2.930 Toxicology [place] (0.6 - 1.2 mmol/L) 0.3 L Urines Urine Color (YEL,AMB,STR) YEL Urine Clarity (CLEAR) CLEAR Urine pH (5.0 - 8.0) 6.5 Ur Specific [place] (1.001 - 1.035) 1.010 Urine Protein (NEG,<30 MG/DL) NEG Urine Ketones (NEG) NEG Urine Nitrite (NEG) NEG Urine Bilirubin (NEG) NEG Urine Urobilinogen (0.1 - 1.0 EU/dl) 0.2 Ur Leukocyte Esterase (NEG) NEG Ur Microscopic EXAM NOT REQUIRED Urine Hemoglobin (NEG) NEG Urine Glucose (N MG/DL) NEG Vital Signs Date Time Temp Pulse Resp B/P B/P Pulse O2 O2 Flow FiO2 Mean Ox Delivery Rate 04/23 1035 84 120/72 04/23 1033 98.4 84 120/72 04/22 2122 97.7 51 18 97/47 04/22 1944 97.7 51 97/47 04/22 1615 54 107/59 04/22 1306 97.3 58 18 116/64 04/22 1249 97.3 58 18 116/64 04/22 1203 58 116/64 MSE Appearance: as stated age Speech : nl rate, rhythm, volume and prosody Behavior: cooperative Motor: + psychomotor retardation Mood : OK Affect : flat, non-labile, irritable, appropriate, constricted Thought process: linear and goal directed Thought content : no delusions or paranoia Perceptions: denied AVHs, denied SI or HI Insight: poor Judgment: poor A/P: Pt with Bipolar disorder, PSD, and ?TBI now some behavioral distrubance now with behavioral plan. Overnight, no signfiicant distrubance and pt has been cooperative and redirectable. Continue current medication regimen Encourage integration into the milieu
[2018-04-23 17:29] VITALS: BP 132/71
[2018-04-23 19:47] VITALS: BP 128/78
[2018-04-23 22:09] VITALS: BP 93/53
[2018-04-24 10:04] VITALS: BP 105/63
--- NOTE | 2018-04-24 11:30 | CP SOUTH PROGRESS NOTE PSYCH ---
Psych (Inpt) Progress Note Progress Note Pt notes that he feels that the reason for his urinary retention is "stage fright." Pt notes that he was able to sleep after bladder scan and the straight cath. Notes did void fully today but tried again just recently and could not go. Denies pain. Notes that he feels full. No behavioral distrubance. Denies SI or HI. Current Medications Sig/Pennie Start time Last Medication Dose Route Stop Time Status Admin Acetaminophen 650 MG Q4P PRN 03/22 1815 AC 04/23 PO 1037 Al Hydroxide/Mg 30 ML Q4-6 PRN PRN 03/22 2030 AC 03/27 Hydroxide PO 2150 Buprenorphine/ 2 TAB 0800,1700 04/22 1315 AC 04/24 Naloxone SL 1007 Chlorpromazine 150 MG Q6-PRN PRN 04/22 1315 AC PO Chlorpromazine 100 MG Q6P PRN 04/20 1115 AC IM Clonazepam 3 MG DAILY 04/22 09 AC 04/24 PO 04/29 0859 1007 Clonidine 0.2 MG Q6-PRN PRN 04/21 1100 DC 04/22 PO 1306 Gabapentin 1,200 MG AT BEDTIME 04/13 2100 AC 04/23 PO 2206 Haloperidol 5 MG 08,04/19 2100 AC 04/24 PO 1007 [place] Carbonate 450 MG 04/22 AC 04/23 PO 2000 [place] Carbonate 300 MG 0800,1400 04/22 1400 AC 04/24 PO 1007 Magnesium Hydroxide 30 ML AT BEDTIME NEED.. 03/22 2030 AC PO Nicotine 2 MG Q2 HRS NEEDED PRN 04/10 1100 AC 04/22 PO 1250 Propranolol HCl 30 MG TID 04/18 1400 AC 04/24 PO 1007 Sertraline HCl 100 MG DAILY 04/21 09 AC 04/24 PO 1007 Trazodone HCl 200 MG AT BEDTIME 04/21 2100 AC 04/22 PO 2123 Laboratory Tests 04/22 04/22 0917 0710 Chemistry Sodium (137 - 145 mmol/L) 143 Potassium (3.5 - 5.1 mmol/L) 4.5 Chloride (98 - 107 mmol/L) 104 Carbon Dioxide (22 - 30 mmol/L) 26 Anion Gap (5 - 16) 13 BUN (9 - 20 mg/dL) 14 Creatinine (0.7 - 1.2 mg/dL) 0.8 Estimated GFR (>60 ml/min) > 60 BUN/Creatinine Ratio (7 - 25 %) 17.5 TSH (0.270 - 4.200 uIU/mL) 2.930 Toxicology [place] (0.6 - 1.2 mmol/L) 0.3 L Urines Urine Color (YEL,AMB,STR) YEL Urine Clarity (CLEAR) CLEAR Urine pH (5.0 - 8.0) 6.5 Ur Specific [place] (1.001 - 1.035) 1.010 Urine Protein (NEG,<30 MG/DL) NEG Urine Ketones (NEG) NEG Urine Nitrite (NEG) NEG Urine Bilirubin (NEG) NEG Urine Urobilinogen (0.1 - 1.0 EU/dl) 0.2 Ur Leukocyte Esterase (NEG) NEG Ur Microscopic EXAM NOT REQUIRED Urine Hemoglobin (NEG) NEG Urine Glucose (N MG/DL) NEG Vital Signs Date Time Temp Pulse Resp B/P B/P Pulse O2 O2 Flow FiO2 Mean Ox Delivery Rate 04/24 1004 97.6 86 105/63 04/23 220 87 93/53 04/23 2208 87 93/53 04/23 1947 99.8 88 128/78 04/23 1730 75 132/71 04/23 1729 75 132/71 MSE Appearance: as stated age Speech : nl rate, rhythm, volume and prosody Behavior: cooperative Motor: + psychomotor retardation Mood : fine Affect : very flat, non-labile, irritable, appropriate, constricted Thought process: linear and goal directed Thought content : no delusions or paranoia Perceptions: denied AVHs, denied SI or HI Insight: poor Judgment: poor A/P: Pt with Bipolar disorder, PSD, and ?TBI now some behavioral distrubance now with behavioral plan. Concern at this time is urinary retention D/c clonidine as most likely suspect for urinary retention Otherwise ontinue current medication regimen PVRs x 24 hours ordered, to closely monitor as well Encourage integration into the milieu
[2018-04-24 15:37] VITALS: BP 99/60
[2018-04-24 19:34] VITALS: BP 138/73
--- NOTE | 2018-04-25 08:27 | CP SOUTH PROGRESS NOTE PSYCH ---
Psych (Inpt) Progress Note Progress Note I reviewed the notes of Dr. Johansen from the weekend of April 23 and 2017. DUSTY, RN, Group and Activities Therapist, and Psychiatrist discussed pt.'s progress, treatment plan, and aftercare plans. Vital Signs: Date Time Temp Pulse Resp B/P B/P 04/25 1013 85 98/56 04/25 1013 97.8 85 98/56 04/24 2200 98.5 83 18 138/73 04/24 1934 98.5 83 138/73 Mental Status: Patient did not have any.'s of agitation over the weekend. There was no need for the involvement of security guards and there was no need for intramuscular medications. Patient was reported by the nursing staff to be a little bit oversedated. The patient is definitely less restless and was not pacing this morning he was interviewed in his room he was lying in his bed. He did look a little bit sedated. He reported feeling better and less anxious he denied audio hallucinations, less guadedness/less general paranoia. no delusions, he denied wishing or thinking of suicide in the past 24 hours, he denied violent thoughts and denies thinking of homicide. He was alert & oriented, coherent for the most part, there were no specific delusions. 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 ? Unspecified Psychotic Disorder Treatment Plan Update: Reduce PRN Thorazine to 100 [place] 300 mg Q0800, 300 mg Q1400 and 450 mg Q2000 Reduce Klonopin to 2 mg QAM Reduce Haldol to 2 mg PO BID Reduce Propranolol to 20 mg TID Reduce Gabapentin to 900 mg at bedtime
[2018-04-25 10:13] VITALS: BP 98/56
--- NOTE | 2018-04-25 14:22 | SOCIAL WORKER PROG NOTE PSYCH ---
Social Work Progress Note Progress Note This process description writer met with patient. He appeared more alert than Wednesday, however, still sedated. Patient discussed feeling as though "I've failed in life. I've lost everything, got it back and then lost it again." Patient defined failure by losing his job and being in the hospital. He asked about the wait list for the [facility] bed, and was informed that an anticipated wait time has not yet been provided. Patient was unable to recall the weekend and was unsure if his father had been in to visit him. He denied SI/HI/AH/VH.
--- NOTE | 2018-04-25 15:39 | SOCIAL WORKER PROG NOTE PSYCH ---
Social Work Progress Note Progress Note ember Name Member ID Member Subscriber Name Subscriber ID NETTE NINO [id number] 1990 NETTE NINO [id number] Pended Authorization # Client Authorization # Type of Request [id number] CONCURRENT Date of Admission/ Start of Services Requested From Submission Date 03/22/2018 04/25/2018 04/25/2018 Level of Service Type of Service Level of Care Type of Care INPATIENT/OC [facility]
[2018-04-25 16:09] VITALS: BP 123/71
--- NOTE | 2018-04-26 08:23 | CP SOUTH PROGRESS NOTE PSYCH ---
Psych (Inpt) Progress Note Progress Note DUSTY RN, Group and Activities Therapist, and Psychiatrist discussed pt.'s progress, treatment plan, and aftercare plans. Vital Signs: Date Time Temp Pulse B/P 04/25 1013 85 98/56 04/25 1013 97.8 85 98/56 Mental Status: Edison continues to look sedated/oversedated. There was no evidence of agitation today. He was not pacing, there was not restless and he denied feeling agitated or irritable. He reported feeling better and less anxious, he denied audio hallucinations, less guadedness/less general paranoia. no delusions, he denied wishing or thinking of suicide in the past 24 hours, he denied violent thoughts and denies thinking of homicide. He was alert & oriented, coherent for the most part, there were no specific delusions. 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 ? Unspecified Psychotic Disorder Treatment Plan Update: D/C Propranolol D/C PRN Thorazine Change Klonopin to 2 mg QHS Haldol 2 mg PO BID Gabapentin 900 mg at bedtime Continue [place] 300 mg Q0800, 300 mg Q1400 and 450 mg Q2000 Reduce Propranolol to 20 mg TID Reduce Gabapentin to 900 mg at bedtime
[2018-04-26 11:31] VITALS: BP 138/83
--- NOTE | 2018-04-26 16:09 | SOCIAL WORKER PROG NOTE PSYCH ---
Social Work Progress Note Progress Note This senior underwriter faxed psychiatrist progress notes from 04/21/18-04/26/18 to [facility] attn : Belen/Doris to [phone]; fax confirmation sheet indicated that fax was successfully sent at [phone]. Per Helena at [facility] ([phone]) no estimate wait time could be provided. 4:09pm This senior underwriter spoke with patient's father, Justin Whyte ([phone]). He was informed that updates were provided to [facility] and they could not provide an estimated wait time. Mr. Whyte stated that he visited with the patient on Wednesday and observed him to be "very sluggish." This senior underwriter attempted to meet with patient throughout the day, however, he was sleeping. Patient was seen sitting by the fish tank around 5:10pm this evening. This senior underwriter approached him and met with him briefly. He was informed that the progress notes had been submitted to [facility] and that they are still unable to give me an anticipate wait time. He was also informed that this senior underwriter spoke with his father regarding an update (informed of update to [facility] and unknown wait time). Patient was very sedated and struggled to stay awake during this conversation. He is agreeable to meeting again tomorrow.
[2018-04-26 19:41] VITALS: BP 113/75
--- NOTE | 2018-04-27 00:22 | Event Note ---
Event Note Event Note: Was called down to see patient for mild fever 100.4. Patient had no complaints, but has a visibly erythematous right ear consistent with otitis externa. He has some mild folliculitis on his back does not appear as cellulitis. No complaints. Remaing exam was benign. Prescribed Corticosporin otic solution, to be followed up in the morning.
[2018-04-27 09:09] LABS: LITHIUM 0.6 mmol/L (0.6-1.2)
--- NOTE | 2018-04-27 11:16 | CP SOUTH PROGRESS NOTE PSYCH ---
Psych (Inpt) Progress Note Progress Note MENTAL HEALTH SOCIAL WORKER, RN, OTR/L, Group and Activities Therapist, and Psychiatrist discussed the pt.'s progress, treatment plan, and aftercare plans. Laboratory Tests 04/27 Sodium (137 - 145 mmol/L) 142 Potassium (3.5 - 5.1 mmol/L) 5.4 H Chloride (98 - 107 mmol/L) 98 Carbon Dioxide (22 - 30 mmol/L) 35 H Anion Gap (5 - 16) 9 BUN (9 - 20 mg/dL) 10 Creatinine (0.7 - 1.2 mg/dL) 0.9 Estimated GFR (>60 ml/min) > 60 BUN/Creatinine Ratio (7 - 25 %) 11.1 TSH (0.270 - 4.200 uIU/mL) 3.130 Toxicology [place] (0.6 - 1.2 mmol/L) 0.6 Vital Signs Date Time Temp Pulse B/P 04/26 1950 100.3 04/26 1941 100.4 104 113/75 04/26 1131 99.5 98 138/83 Mental Status: Edison low-grade fever last night around 8 PM This morning, he continues to look sedated/oversedated. There was no evidence of agitation today. reported feeling better and less anxious, he denied audio hallucinations, less guadedness/less general paranoia. no delusions, he denied wishing or thinking of suicide in the past 24 hours, he denied violent thoughts and denies thinking of homicide. He was coherent for the most part, there were no specific delusions. 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 ? Unspecified Psychotic Disorder Treatment Plan Update: D/C Haldol Reduce Gabapentin to 600 mg at bedtime Reduce Trazodone to 75 mg at bedtime Continue [place] 300 mg Q0800, 300 mg Q1400 and 450 mg Q2000 Continue Klonopin 2 mg QHS DICTATED BY: Julian Burciaga MD DICTATED BY: Julian Burciaga MD DICTATED BY: Julian Burciaga MD
--- NOTE | 2018-04-27 17:20 | SOCIAL WORKER PROG NOTE PSYCH ---
Social Work Progress Note Progress Note This abstract writer met with patient. He appeared sedated, however, less tired than yesterday. Nursing informed that the patient had a fever yesterday, however none today. Patient stated that he was feeling better. Patient described his mood as "good." He appeared distracted during this meeting, stating that he was "lost in thought." Patient denied SI/HI/AH/VH. Patient stated that he had alot on his mind, however, was unable/unwilling to share. This abstract writer inquired about whether he had ever tried journaling. Patient denied, however, appeared interested and willing to try. He was given a journal. Patient agreed to meet again later in the day, however, upon attempting to meet with him, patient was sleeping.
[2018-04-27 19:46] VITALS: BP 141/74
[2018-04-28 08:22] VITALS: BP 132/79
--- NOTE | 2018-04-28 08:58 | CP SOUTH PROGRESS NOTE PSYCH ---
Psych (Inpt) Progress Note Progress Note DUSTY, RN, OTR/L, Group and Activities Therapist, and Psychiatrist discussed the pt.'s progress, treatment plan, and aftercare plans. Vital Signs Date Time Temp Pulse B/P 04/28 0822 96.7 72 132/79 04/27 1946 99.2 97 141/74 Mental Status: Edison claimed that he did not sleep well last night. Is afebrile, has an infection on the skin of his Right pinna (the helix part) not that sedated today There was no evidence of agitation today. reported feeling better and less anxious, he denied audio hallucinations, less guadedness/less general paranoia, no delusions Edison denied wishing or thinking of suicide in the past 24 hours, he denied violent thoughts and denies thinking of homicide. He was coherent for the most part, there were no specific delusions. 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
--- NOTE | 2018-04-28 17:47 | SOCIAL WORKER PROG NOTE PSYCH ---
Social Work Progress Note Progress Note This copy writer met with patient. He described his mood as "ok" and denied SI/HI/AH /VH. He reported that the Suboxonen is making him "itchy" and has informed nursing and Dr. Burciaga. Patient stated that he is attending some groups. He rated his anxiety at a 7/10, depression at a 7/10, anger at a 3/10. He discussed being angry at himself for "allowing myself to get into this predicament." Patient discussed "I feel like I have no soul" explaining that this refers to not enjoying activities he used to enjoy. This copy writer attempted to assist patient in reframing his thought process regarding this, however the patient was unable to do so. Patient was agreeable to identifying traits that he holds other than mental health, substance use, symptoms, diagnosis, medications. He appeared agreeable to this exercise. Patient was also curious as to what [facility] is like and what to expect. This copy writer will assist him in calling to ask these questions.
[2018-04-28 19:50] VITALS: BP 121/79
--- NOTE | 2018-04-29 08:43 | CP SOUTH PROGRESS NOTE PSYCH ---
Psych (Inpt) Progress Note Progress Note DUSTY, RN, OTR/L, Group and Activities Therapist, and Psychiatrist discussed the pt.'s progress, inpatient treatment plan, and aftercare plans. Vital Signs: Date Time Temp Pulse B/P 04/29 1010 98.3 76 119/73 04/28 1950 98.0 75 121/79 Mental Status: Edison has been afebrile x 48hours, had a rash on back on neck yesterday, today it is completely gone has an infection on the skin of his Right pinna (the helix part), not that sedated today, no evidence of agitation today. Edison does not think he is over-sedated, did not bring up anxiety or restlessness as he used to last week he denied audio hallucinations, much less guadedness/ almost no paranoia, and no delusions. Edison denied wishing or thinking of suicide, denied violent thoughts and denies thinking of homicide. He was coherent for the most part, there were no specific delusions. 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
[2018-04-29 10:10] VITALS: BP 119/73
--- NOTE | 2018-04-29 12:39 | SOCIAL WORKER PROG NOTE PSYCH ---
Social Work Progress Note Progress Note Completed [facility] online review for continued stay. Please check websire for next review date.
--- NOTE | 2018-04-29 18:01 | SOCIAL WORKER PROG NOTE PSYCH ---
Social Work Progress Note Progress Note This grant writer spoke with Radha Vallejo LCSW with the [facility] program ([phone]). The name and phone number were provided by Dr. Burciaga. She discussed the process for referring a patient to their program. No patient information was provided and this grant writer will discuss with the patient. This grant writer met with the patient. He appeared clearer and less agitated today than previously. He reported that he was feeling better. Patient was informed of the information obtained by this grant writer regarding the [facility] program. He expressed interest in learning more. He also inquired about the wait time for [facility]. Patient was informed that this grant writer has not been given an anticipated wait time, however, will continue to ask. Patient stated that his father will visit him tomorrow and is looking forward to this. He stated that he has been attending groups on the unit and finds them helpful.
[2018-04-29 20:13] VITALS: BP 143/76
--- NOTE | 2018-04-30 11:33 | CP SOUTH PROGRESS NOTE PSYCH ---
Psych (Inpt) Progress Note Progress Note Include the following elements, when applicable: Involvement in the active treatment of the patient with behavioral observations of the patient and the patient's response to the treatment. Review of the ongoing treatment process in the context of the treatment plan. Indication of how multi-disciplinary staff members are carrying out the treatment plan. Plans for future interventions and recommendations for revision of the treatment plan. Liaison with other physicians/providers. Progress Note: Angry, making statements like Im going to settle this myself in response to conflict with peer whom he claims is taking his food. Security, RN and myself spoke with him, de-escalating him. He appears sedated, staring into nowhere vs brooding. Otherwise he is doing well/at his baseline, easily irritated, but able to settle down with verbal redirection. He has no thoughts of wanting to harm anyone or himself and states that he just is mad about his food being eaten. We discussed speaking with RN about keeping his food or coming down on time for his meals in order to eat them warm and keep them for himself. He had some itchiness but stated rash was better. MSE: agitated, annoyed young man, somewhat sedated/staring, some psychomotor slowing. Speech is regular to slowed rate, regular volume. Mood is annoyed, affect is constricted. Eye contact is down. No tic or tremor noted. Thought process is perseverative and concrete but no gross disorganization. No delusional thinking, suspiciousness about his food being eaten which is likely grounded in reality or exaggerated and not a gross delusion. No thoughts of harm to anyone else or himself, despite vague threatening statements about setting things himself. Not internally preoccupied, insight is poor and judgment is poor. A: 27 year old man with history of depressive sx, personality disorder sx, long admission with ongoing impaired impulsivity, frustration tolerance and overall baseline residual symptoms. He had a rash and an ear infection over last week, and has been treated with oral creams and Benadryl. He appears somewhat sedated and agitated/annoyed over this morning but able to be redirected Plan: continue current medications, continue support from nursing staff and security if indicated for elevated escalation, though he appears to be doing better overall.
[2018-04-30 11:58] VITALS: BP 131/73
[2018-04-30 19:27] VITALS: BP 134/72
--- NOTE | 2018-05-01 12:44 | CP SOUTH PROGRESS NOTE PSYCH ---
Psych (Inpt) Progress Note Progress Note Include the following elements, when applicable: Involvement in the active treatment of the patient with behavioral observations of the patient and the patient's response to the treatment. Review of the ongoing treatment process in the context of the treatment plan. Indication of how multi-disciplinary staff members are carrying out the treatment plan. Plans for future interventions and recommendations for revision of the treatment plan. Liaison with other physicians/providers. Progress Note: sedated, staring today, poorly engaged. He stated that he slept well, that he has had no issues with peers or staff. Him and peer were noted to be alone in room talking for extended period of time yesterday, he denies any victimization/ abuse/threats. He stated that they were just trying to sort out their agitation toward each other. I explained and educated him about speaking in day room for more security in the future, and about any concern for high risk behaviors which he denied. Last night he was agitated and annoyed after the discussion with peer and received benadryl dose from me, I explained to him that he needs to more effectively use his coping skills when frustrated b/c the PRN medications cause him to be even more sedated and unable to participate in the milieu, groups etc, and will limit them. MSE: calmer today, somewhat sedated still. Eye contact is fair. Psychomotor slowing present. His speech is normal to slowed rate, regular volume. Mood is neutral and affect is blunted today. He has no movement disorder evident. His thinking is concrete, he is not as annoyed/perseverative as he was yesterday. He has no internal preoccupation (somewhat slow to respond/distracted but this is likely secondary to sedation). No delusional thinking today during discussion. No thoughts of harm to anyone else or himself. Insight is poor and judgment is poor. A: 27 year old man with history of depressive sx, personality disorder sx, long admission with ongoing impaired impulsivity, frustration tolerance and overall baseline residual symptoms. He had a rash and an ear infection over last week, and has been treated with oral creams and Benadryl. He appears somewhat sedated and agitated/annoyed over this morning but able to be redirected. He was noted with a peer he had conflict with earlier speaking for a prolonged amount of time , but denies any threats/abuse/victimization, stated they were "talking it out. " Plan: continue current medications, continue support from nursing staff. Have informed him of plan to limit PRN medication, set verbal limits with him.
[2018-05-01 19:49] VITALS: BP 147/78
--- NOTE | 2018-05-02 09:00 | CP SOUTH PROGRESS NOTE PSYCH ---
Psych (Inpt) Progress Note Progress Note I reviewed Dr. Stevens's notes for the weekend (04/30 and 2017). CHEMICAL PATHOLOGIST, RN, OTR/L, Group and Activities Therapist, and Psychiatrist discussed the pt.'s progress, inpatient treatment plan, and aftercare plans. Vital Signs: Laboratory Tests 05/02 Sodium (137 - 145 mmol/L) 138 Potassium (3.5 - 5.1 mmol/L) 4.2 Chloride (98 - 107 mmol/L) 99 Carbon Dioxide (22 - 30 mmol/L) 29 Anion Gap (5 - 16) 10 BUN (9 - 20 mg/dL) 9 Creatinine (0.7 - 1.2 mg/dL) 0.6 L Estimated GFR (>60 ml/min) > 60 BUN/Creatinine Ratio (7 - 25 %) 15.0 Toxicology [place] (0.6 - 1.2 mmol/L) 0.7 Vital Signs Date Time Temp Pulse B/P 05/02 1112 97.4 91 131/81 05/01 1949 99.2 96 147/78 Mental Status: Edison continues to have some itching and rash on the neck not sedated today, irritable but no evidence of agitation today. Edison reports anxiety, he denied audio hallucinations, much less guadedness/ almost no paranoia, and no delusions. Edison denied wishing or thinking of suicide, denied violent thoughts and denies thinking of homicide. He was coherent for the most part, there were no specific delusions. 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
[2018-05-02 11:12] VITALS: BP 131/81
[2018-05-02 11:13] LABS: LITHIUM 0.7 mmol/L (0.6-1.2)
--- NOTE | 2018-05-02 16:07 | SOCIAL WORKER PROG NOTE PSYCH ---
Social Work Progress Note Progress Note The services requested require additional review. You will be contacted regarding the status of this request if further information is needed. An authorization decision will be made within the required timeframes and details of that decision may be found under the member's authorization history. Member Name Member ID Member Subscriber Name Subscriber ID NETTE NINO [id number] 1990 NETTE NINO [id number] Pended Authorization # Client Authorization # Type of Request [id number] CONCURRENT Date of Admission/ Start of Services Requested From Submission Date 03/22/2018 05/02/2018 05/02/2018 Level of Service Type of Service Level of Care Type of Care INPATIENT/HLOC Mental [facility]patient [facility] Reason Code P76 Provider Name & Address Provider ID Provider Alternate ID NPI # for Authorization MARIVEL ANGELES [id number] [address] [place] [id number] Message P76 Authorization Printing & Downloading Options: (For the best print results, please print in 'Landscape' format)
--- NOTE | 2018-05-02 17:51 | SOCIAL WORKER PROG NOTE PSYCH ---
Social Work Progress Note Progress Note Jocelyne Contreras (PA student) and this commercial real estate underwriter met with patient. He reported his mood as "ok" and denied SI/HI/hallucinations. Patient inquired about the wait time for the [facility] bed and was informed that this commercial real estate underwriter has not been informed. Patient stated "I am living in hell. I deserve to be in hell." Patient would not expand further on this, other than to stated that he felt really ashamed. Patient stated that he has been attending some groups. He presented as depressed and appeared to be deep in thought at times throughout this conversation, at times taking several seconds to respond. Patient was informed that this commercial real estate underwriter received a call from his father, Justin Whyte, inquring about conservatorship. Patient stated that he discussed this with his father over the weekend and they were both interested in the process. He was agreeable to this commercial real estate underwriter returning Lacie Whyte's call. 3:12pm This commercial real estate underwriter spoke with Justin Whyte ([phone]). He expressed interest in conservatorship; he will contact the court to obtain documents and inquire about the process.
[2018-05-02 19:29] VITALS: BP 129/76
--- NOTE | 2018-05-03 09:11 | CP SOUTH PROGRESS NOTE PSYCH ---
Psych (Inpt) Progress Note Progress Note DUSTY, RN, OTR/L, Group and Activities Therapist, and Psychiatrist discussed the pt.'s progress, inpatient treatment plan, and aftercare plans. Vital Signs: Date Time Temp Pulse B/P B/P O2 05/03 1213 97.6 83 125/68 05/02 1929 98.5 82 129/76 Mental Status: Edison review of lithium last night and he was trying to refuse it today (he was getting his morning dose at around noontime because he did not wake up this morning and time/slip to date) continues to have some itching, was not sedated , not irritable no evidence of agitation, Edison reports anxiety, denied audio hallucinations, less guaded/ no paranoia, and no delusions. Edison denied wishing or thinking of suicide, denied violent thoughts and denies thinking of homicide. He was coherent for the most part, there were no specific delusions. 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 Other Substance Use Disorder (hallucinogen PCP) Treatment Plan Update: Reduce Gabapentin to 900 mg at bedtime Reduce Suboxone to 4 mg SL in the morning and 4 mg sublingually around 5 PM Continue Trazodone 100 mg at bedtime Continue [place] 300 mg Q0800, 300 mg Q1400 and 450 mg Q2000 Continue Klonopin 2 mg QHS
[2018-05-03 12:13] VITALS: BP 125/68
--- NOTE | 2018-05-03 17:01 | SOCIAL WORKER PROG NOTE PSYCH ---
Social Work Progress Note Progress Note This quality analyst/technical writer spoke with patient's father, Justin Whyte, who contacted this quality analyst/technical writer by phone. He stated that he had gone to court and obtained documents for involuntary conservatorship. He stated that he explained to the coupon and bond collection clerk that his son, Kishna Whyte, is currently being held at [facility] by the court while waiting for [place] [facility] placement. This quality analyst/technical writer explained to Justin Whyte that the patient is signed in under voluntary status. After speaking with Dr. Burciaga, Justin Whyte was also informed that voluntary conservatorship is suggested. He stated that he may pursue involuntary due to the patient being in the hospital and unable to accompany him to the court. This quality analyst/technical writer spoke with Belen at [facility] regarding bed availability. She stated that she is unaware of the current wait time. Psychiatrist progress notes (04/26-05/02/18) were faxed to [facility] at [phone] at 2:29pm today. This quality analyst/technical writer met with patient. He reported his mood as "not so well" due to changes in medications. He discussed being able to sleep more on previous doses , which he preferred. Patient was informed that this quality analyst/technical writer spoke with his father earlier today who plans on filing for involuntary conservatorship. Patient was agreeable with this plan and will discuss it with his father when they speak later today. He denied SI/HI/hallucinations.
[2018-05-03 19:49] VITALS: BP 127/71
--- NOTE | 2018-05-04 10:32 | CP SOUTH PROGRESS NOTE PSYCH ---
Psych (Inpt) Progress Note Progress Note The pt.'s progress, inpatient treatment plan, and aftercare plans were discussed in the treatment planning daily meeting (present were Shahnaz Davila LCSW, RN, OTR/L, Group and Activities Therapist, and Psychiatrist, Dr. Burciaga). Vital Signs: Vital Signs Date Time Temp Pulse B/P B/P Pulse O2 05/03 1949 98.7 96 127/71 05/03 1213 97.6 83 125/68 Mental Status: The pt. was withdrawn and in his bed this morning, seemed to be disinterested in the conversation, is isolating and slightly irritable most likely because of a reduction in Suboxone yesterday. Despite his protests, there were no episodes of agitation. Edison denied audio hallucinations, less guaded/ no paranoia, and no delusions. He denied wishing or thinking of suicide, denied violent thoughts and denies thinking of homicide. He was coherent for the most part, there were no specific delusions. 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 Current Medications Clonazepam 2 MG AT BEDTIME 04/27 2100 05/03 PO 05/11 2058 2217 Diphenhydramine HCl 1 RALF Q8P PRN 05/03 2115 05/03 TOP 2237 Diphenhydramine HCl 50 MG Q4P PRN 05/02 1315 05/03 Gabapentin 900 MG AT BEDTIME 05/02 2100 05/03 Haloperidol 5 MG Q4 HRS NEEDED PRN 05/02 1315 05/02 Hydrocortisone 1 RALF TID PRN 04/29 2100 05/03 EXT 1917 [place] Carbonate 450 MG 04/22 PO 191 [place] Carbonate 300 MG 0800,1400 04/22 1400 AC 05/04 PO 1023 Magnesium Hydroxide 30 ML AT BEDTIME NEED.. 03/22 2030 AC PO Neomycin/Polymyxin/ 4 GTT 4 TIMES/DAY PRN 04/27 0020 04/30 Bacitr/Hydrocort OTIC 2157 Sertraline HCl 100 MG DAILY 04/21 0900 AC 05/04 PO 1024 Trazodone HCl 100 MG AT BEDTIME 04/28 2100 AC 05/03 Trazodone HCl 100 MG AT BEDTIME 04/28 2100 AC 05/03
--- NOTE | 2018-05-04 11:50 | MRI REPORT ---
MR BRAIN WITHOUT IV CONTRAST CLINICAL INFORMATION: Personality change. Neuro cognitive deficit. COMPARISON: None available. TECHNIQUE: MRI of the brain without contrast was obtained using routine sequences. FINDINGS: There is no hydrocephalus, extra-axial surface collection, or herniation. There is nonspecific increased signal on T2-weighted imaging within the right occipital periventricular white matter which can be seen as a variant. The major flow voids at the skull base are preserved. There is no acute infarct on diffusion-weighted imaging. There is no intracranial hemorrhage on the gradient recalled echo acquisition. The midline structures are normal. The cerebellar tonsils are normally positioned. The cerebellum and brainstem are normal. The craniocervical junction is normal. Osseous marrow signal intensity is homogenous. The visualized soft tissues are unremarkable. There is a small right mastoid effusion. IMPRESSION: There is nonspecific increased signal on T2-weighted imaging within the right occipital periventricular white matter which can be seen as a variant. No additional parenchymal signal abnormality. No cerebral volume loss.
--- NOTE | 2018-05-04 17:09 | SOCIAL WORKER PROG NOTE PSYCH ---
Social Work Progress Note Progress Note This job specification writer met with patient. He had been sleeping much throughout the day. Patient reported that this was due to increased depression. He rated his depression at a 7/10 (with 10 being the worst). He denied SI/HI/hallucinations. Patient reported improved anxiety and also stated that his itching has lessened. Patient stated that he looked forward to visiting with his father, whome he anticipates to visit this evening. Patient presented as depressed. He appeared less anxious and agitated in general.
[2018-05-04 19:58] VITALS: BP 136/76
--- NOTE | 2018-05-05 11:25 | CP SOUTH PROGRESS NOTE PSYCH ---
Psych (Inpt) Progress Note Progress Note Mental Status: withdrawn, in his bed this morning, disinterested, irritable no episodes of agitation. Edison denied audio hallucinations, less guaded/no paranoia, no delusions, denied wishing or thinking of suicide, denied violent thoughts and denies thinking of homicide. He was coherent for the most part, no specific delusions. 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 whether itching/rash is related D/C Neomycin/Polymyxin drops for the same reason above Continue Clonazepam 2 MG AT BEDTIME Diphenhydramine HCl 1 RALF Q8P PRN Diphenhydramine HCl 50 MG Q4P PRN Gabapentin 900 MG AT BEDTIME Haloperidol 5 MG Q4 HRS NEEDED PRN Hydrocortisone 1 RALF TID PRN [place] Carbonate 450 MG 1999 [place] Carbonate 300 MG 0800,1400 Sertraline HCl 100 MG DAILY 04/21 900 Trazodone HCl 100 MG AT BEDTIME Gabapentin 900 MG AT BEDTIME 05/02 2100 AC 05/03 Haloperidol 5 MG Q4 HRS NEEDED PRN 05/02 1315 AC 05/02 Hydrocortisone 1 RALF TID PRN 04/29 2100 AC 05/03 EXT 1917 [place] Carbonate 450 MG 04/22 2000 05/03 [place] Carbonate 300 MG 0800,1400 04/22 1400 AC 05/04 Magnesium Hydroxide 30 ML AT BEDTIME NEED.. 03/22 2030 AC Neomycin/Polymyxin/ 4 GTT 4 TIMES/DAY PRN 04/27 0020 AC Bacitr/Hydrocort OTIC 215 Sertraline HCl 100 MG DAILY 04/21 09 AC 05/04 Trazodone HCl 100 MG AT BEDTIME 04/28 2100 AC 05/03
[2018-05-05 12:35] VITALS: BP 138/77
--- NOTE | 2018-05-05 14:21 | SOCIAL WORKER PROG NOTE PSYCH ---
Endy Silva 05/05/18 1408: Social Work Progress Note Progress Note I Endy Silva ([employer] paid intern) met with Edison this afternoon in the unge. He was wearing scrubs. His affect was positive. He was cooperative and engaged in the conversation. On a scale of 0 being no symptoms to 10 severe symptoms he rated his anxiety as an 8 and his depression as a 7 today. He described his mood as "alright". He expressed his appetite as good and that he has been sleeping well. He feels safe on the unit and mentioned that he is accepting of waiting here for a [facility] bed to open up. He informed me that his father is his conservator and he feels that this is the best choice(father is currently pursuing conservatorship). Kishan attended one group this afternoon and says that he enjoys spending time on the unit watching tv and movies.
--- NOTE | 2018-05-05 17:21 | SOCIAL WORKER PROG NOTE PSYCH ---
Social Work Progress Note Progress Note This script writer met with patient. He described his mood as "ok" and denied SI/HI/AH /VH. This script writer had been informed prior to this meeting by Ana (NICO Beckett) that he had been pleasant towards nursing staff, which is unsual as compared to prior days/interactions. This script writer reviewed the [facility] referral form and patient signed a PREMA. Patient is agreeable to this referral. Patient discussed his thoughts on conservatorship, which he was also agreeable to and he will discuss more with his father. This script writer left a vm for Linnette Garcia ([phone]) regarding the [facility] referral. A call back number was provided.
[2018-05-05 19:28] VITALS: BP 122/71
--- NOTE | 2018-05-06 08:16 | CP SOUTH PROGRESS NOTE PSYCH ---
Psych (Inpt) Progress Note Progress Note The pt.'s progress, inpatient treatment plan, and aftercare plans were discussed in the morning treatment planning meeting (team members: Shahnaz Davila LCSW and Ana Mooney RN, OTR/L, and Psychiatrist) Ana Mooney RN, reported --in the treatment team meeting this morning-- that Edison fashioned a noose from his sheets yesterday (evening). Edison has been showing brief periods of improvement then reverts back to immature, provocative, and [id number] behvaiors Today, he was in his bed this morning until noontime, he said he was depressed, bored, and he was disinterested, irritable but no episodes of agitation. Edison denied audio hallucinations, less guaded/no paranoia, no delusions, denied violent thoughts and denies thinking of homicide. He was coherent for the most part, no specific delusions. 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
--- NOTE | 2018-05-06 09:54 | SOCIAL WORKER PROG NOTE PSYCH ---
Social Work Progress Note Progress Note The services requested require additional review. You will be contacted regarding the status of this request if further information is needed. An authorization decision will be made within the required timeframes and details of that decision may be found under the member's authorization history. Member Name Member ID Member Subscriber Name Subscriber ID NETTE NINO [id number] 1990 NETTE NINO [id number] Pended Authorization # Client Authorization # Type of Request [id number] CONCURRENT Date of Admission/ Start of Services Requested From Submission Date 03/22/2018 05/06/2018 05/06/2018 Level of Service Type of Service Level of Care Type of Care INPATIENT/HLOC [facility]patient [facility] Reason Code P76 Provider Name & Address Provider ID Provider Alternate ID NPI # for Authorization MARIVEL ANGELES [id number] [facility] [id number]
--- NOTE | 2018-05-06 17:37 | SOCIAL WORKER PROG NOTE PSYCH ---
Social Work Progress Note Progress Note 11:25am This literary writer attempted to meet with the patient today. He refused and stated that he would meet on Wednesday. Nursing and Dr. Burciaga were informed.
--- NOTE | 2018-05-06 18:11 | SOCIAL WORKER PROG NOTE PSYCH ---
Social Work Progress Note Progress Note [facility] Consultation Referral was faxed at attn: Radha Vallejo LCSW on 05/06/18 at 9:02am (fax number: [phone])
[2018-05-06 19:29] VITALS: BP 104/67
[2018-05-06 20:54] VITALS: BP 125/72
--- NOTE | 2018-05-07 11:23 | CP SOUTH PROGRESS NOTE PSYCH ---
Psych (Inpt) Progress Note Progress Note Include the following elements, when applicable: Involvement in the active treatment of the patient with behavioral observations of the patient and the patient's response to the treatment. Review of the ongoing treatment process in the context of the treatment plan. Indication of how multi-disciplinary staff members are carrying out the treatment plan. Plans for future interventions and recommendations for revision of the treatment plan. Liaison with other physicians/providers. Progress Note: Pt notes that he is "OK" today. Slept well. Does enjoy speaking on the phone to his father and sister whom he describes as supportive. Denies SI or HI. Current Medications Sig/Pennie Start time Last Medication Dose Route Stop Time Status Admin Acetaminophen 650 MG Q4P PRN 03/22 181 AC 04/27 PO 194 Al Hydroxide/Mg 30 ML Q4-6 PRN PRN 03/22 2030 AC 03/27 Hydroxide PO 215 Clonazepam 3 MG AT BEDTIME 05/06 2100 AC 05/06 PO 05/13 2059 205 Clonazepam 2 MG AT BEDTIME 04/27 2100 DC 05/05 PO 05/11 2058 210 Diphenhydramine HCl 50 MG Q6P PRN 05/06 2238 AC 05/06 PO 224 Diphenhydramine HCl 1 RALF Q8P PRN 05/03 2115 AC 05/06 TOP 2204 Gabapentin 600 MG AT BEDTIME 05/05 2100 AC 05/06 PO 205 Haloperidol 5 MG .STK-MED ONE 05/06 2243 DC PO 05/06 2244 Haloperidol 5 MG Q6-PRN PRN 05/05 1045 AC 05/06 PO 2246 Hydrocortisone 1 RALF TID PRN 04/29 2100 AC 05/03 EXT 1917 [place] Carbonate 300 MG 2000 05/05 2000 AC 05/06 PO 2200 [place] Carbonate 300 MG 0800,1400 04/22 1400 AC 05/07 PO 1037 Loratadine 10 MG DAILY 05/02 1310 AC 05/07 PO 1037 Magnesium Hydroxide 30 ML AT BEDTIME NEED.. 03/22 2030 AC PO Nicotine 2 MG Q2 HRS NEEDED PRN 04/10 1100 AC 05/06 PO 2349 Sertraline HCl 150 MG DAILY 05/07 09 AC 05/07 PO 1037 Sertraline HCl 100 MG DAILY 04/21 0900 DC 05/06 PO 1330 Trazodone HCl 75 MG AT BEDTIME 05/05 2100 AC 05/06 PO 2329 Vital Signs Date Time Temp Pulse Resp B/P B/P Pulse O2 O2 Flow FiO2 Mean Ox Delivery Rate 05/06 2054 73 125/72 05/06 1929 97.6 82 104/67 MSE Appearance: as stated age Speech : nl rate, rhythm, volume and prosody Behavior: cooperative Motor: + psychomotor retardation Mood : OK Affect : very flat, non-labile, not irritable, appropriate, constricted Thought process: linear and goal directed Thought content : no delusions or paranoia Perceptions: denied AVHs, denied SI or HI Insight: poor Judgment: poor A/P: Pt with Bipolar disorder, PSD, and TBI with improved behavioral control over the last two days. - Continue current medication regimen.
[2018-05-07 11:35] VITALS: BP 106/62
[2018-05-07 19:38] VITALS: BP 122/74
[2018-05-08 11:11] VITALS: BP 120/77
--- NOTE | 2018-05-08 11:48 | CP SOUTH PROGRESS NOTE PSYCH ---
Psych (Inpt) Progress Note Progress Note Pt reports that he did not sleep well overnight. Notes DFA and DSS, Denies SI or HI. Current Medications Sig/Pennie Start time Last Medication Dose Route Stop Time Status Admin Acetaminophen 650 MG Q4P PRN 03/22 181 AC 04/27 PO 194 Al Hydroxide/Mg 30 ML Q4-6 PRN PRN 03/22 2030 AC 03/27 Hydroxide PO 215 Chlorpromazine 50 MG ONE ONE 05/07 1615 DC 05/07 PO 05/07 1616 1716 Clonazepam 3 MG AT BEDTIME 05/06 2100 AC 05/07 PO 05/13 Diphenhydramine HCl 50 MG Q6P PRN 05/06 2238 AC 05/07 PO 140 Diphenhydramine HCl 1 RALF Q8P PRN 05/03 211 AC 05/08 TOP 1116 Gabapentin 300 MG ONE ONE 05/07 1615 DC 05/07 PO 05/07 1616 1717 Gabapentin 600 MG AT BEDTIME 05/05 2100 AC 05/07 PO 204 Haloperidol 10 MG .STK-MED ONE 05/07 1534 DC PO 05/07 1535 Haloperidol 5 MG Q6-PRN PRN 05/05 1045 AC 05/07 PO 1406 Hydrocortisone 1 RALF TID PRN 04/29 2100 AC 05/03 EXT 1917 [place] Carbonate 300 MG 2000 05/05 2000 AC 05/07 PO 2001 [place] Carbonate 300 MG 0800,1400 04/22 1400 AC 05/08 PO 1114 Loratadine 10 MG DAILY 05/02 1310 AC 05/08 PO 1114 Magnesium Hydroxide 30 ML AT BEDTIME NEED.. 03/22 2030 AC PO Nicotine 2 MG Q2 HRS NEEDED PRN 04/10 1100 AC 05/07 PO 2001 Sertraline HCl 150 MG DAILY 05/07 0900 AC 05/08 PO 1114 Trazodone HCl 75 MG AT BEDTIME 05/05 2100 AC 05/07 PO 2335 Vital Signs Date Time Temp Pulse Resp B/P B/P Pulse O2 O2 Flow FiO2 Mean Ox Delivery Rate 05/08 1111 97.1 88 120/77 05/07 1938 98.2 85 122/74 MSE Appearance: as stated age Speech : nl rate, rhythm, volume and prosody Behavior: cooperative Motor: + psychomotor retardation Mood : just OK Affect : extremely flat, non-labile, not irritable, appropriate, constricted Thought process: linear and goal directed Thought content : no delusions or paranoia Perceptions: denied AVHs, denied SI or HI Insight: poor Judgment: poor A/P: Pt with Bipolar disorder, PSD, and TBI with improved behavioral control over the last two days. - Continue current medication regimen except increase trazodone to 100mg
[2018-05-08 14:55] VITALS: BP 120/66
[2018-05-08 19:55] VITALS: BP 126/71
--- NOTE | 2018-05-09 08:03 | CP SOUTH PROGRESS NOTE PSYCH ---
Psych (Inpt) Progress Note Progress Note I reviewed Dr. Johansen's notes for the weekend of May 07 and 2017. The pt.'s progress, inpatient treatment plan, and aftercare plans were discussed in the treatment planning meeting (team members: Shahnaz Davila LCSW; Ana Mooney, RN; OTR/L, and Psychiatrist) MSE: Edison was in bed after having breakfast. he reported that he is feeling bored and discouraged, "nothing to do", denied thinking of suicide over the weekend of today (so far, interviewed at 10:20 AM) brief periods of improvement punctuated by occasional immature/poorly-thought- out/impulsive behvaiors he said he was feeling "depressed," but denied feeling completely hopeless or worthless disinterested, irritable but no episodes of agitation. Edison denied audio hallucinations, less guaded/no paranoia, no delusions, denied violent thoughts and denies thinking of homicide. He was coherent for the most part. 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 3) Opioid Use Disorder. 4) Cocaine Use Disorder. 5) Acquired Brain Injury/Traumatic (PROSPER/TBI) Treatment Plan Update: Continue medications unchanged (Zoloft last increased to 150 mg on 05/07/2018 and Klonopin last increased on 05/06/2018 to 3 mg) Cocaine Use Disorder Treatment Plan Update: 1) Increase Sertraline to 150 mg daily (AM) 2) Increase Clonazepam to 3 mg AT BEDTIME Continue other medications unchanged
--- NOTE | 2018-05-09 17:47 | SOCIAL WORKER PROG NOTE PSYCH ---
Social Work Progress Note Progress Note This quality analyst/technical writer met with patient. He described his mood as "edgy" and "a little anxious." He stated that he has a "knot in my stomach." Despite assistance from this quality analyst/technical writer, patient was unable to identify any strategies to manage his anxiety. He stated that he had attended some groups. Patient left this conversation briefly to obtain a prn from the nurse for his anxiety. Upon returning, patient inquired about the wait list for [facility] and was informed that this write would contact them tomorrow as well as send the weekly clinical updates. Patient denied SI/HI/AH/VH. Patient presented as calm, cooperative, depressed and appropriately engaged in this meeting.
[2018-05-09 19:24] VITALS: BP 107/60
--- NOTE | 2018-05-10 08:25 | CP SOUTH PROGRESS NOTE PSYCH ---
Psych (Inpt) Progress Note Progress Note The pt.'s progress, inpatient treatment plan, and aftercare plans were discussed in the treatment planning meeting (team members: Shahnaz Davila LCSW; Ana Mooney RN; OTR/L, and Psychiatrist). Vital Signs Date Time Temp Pulse B/P B/P Pulse 05/10 1211 98.0 96 116/76 05/09 1924 98.3 77 107/60 Mental State: The patient is more visible on the unit today. He did not look sedated or tired when I interviewed him around 1:30 PM. The patient is feeling bored and restless (in his own words) discouraged, "nothing to do", "I am stuck in here," denied thinking of suicide still having brief periods of improvement punctuated by immature/poorly-thought- out/impulsive behvaiors he said he was feeling "depressed," but denied feeling completely hopeless or worthless disinterested, irritable but no episodes of agitation. The patient denied audio hallucinations, less guaded/no paranoia, no delusions, denied violent thoughts and denies thinking of homicide. He was coherent for the most part. 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 3) Opioid Use Disorder. 4) Cocaine Use Disorder. 5) Acquired Brain Injury/Traumatic (PROSPER/TBI) Treatment Plan Update: D/C Thorazine Quetiapine 25 mg Q4 hours PRN Anxiety or agitation or retlessness Add tenex 1 mg BID Continue medications unchanged (Zoloft last increased to 150 mg on 05/07/2018 and Klonopin last increased on 05/06/2018 to 3 mg)
--- NOTE | 2018-05-10 10:58 | SOCIAL WORKER PROG NOTE PSYCH ---
Social Work Progress Note Progress Note NETTE NINO [id number] 1990 NETTE NINO [id number] Pended Authorization # Client Authorization # Type of Request [id number] CONCURRENT Date of Admission/ Start of Services Requested From Submission Date 03/22/2018 05/10/2018 05/10/2018
[2018-05-10 12:11] VITALS: BP 116/76
--- NOTE | 2018-05-10 16:51 | SOCIAL WORKER PROG NOTE PSYCH ---
Social Work Progress Note Progress Note 3:15 This check writer salesperson met with patient. We called Melissa Woodall from the TBI program ) in response to her vm. An assessment has been scheduled and she will meet with the patient on 05/12/18 at 1pm on [facility]. Patient had also requested to call [facility] as he had questions about their inpatient program. He spoke with Belen at [facility] ([phone]) regarding these questions. Belen confirmed that she received the progress notes (05/03/18-05/10/18) this check writer salesperson faxed to her earlier today (at 2:52pm; fax number [phone]). Patient and I also called his father, Justin Whyte ([phone]) for the weekly update. Mr. Whyte was informed of the TBI assessment scheduled for 05/12/18 as well as the call to [facility]. He was informed that an anticipated wait time for the [facility] bed still is not available. Mr. Whyte stated that he is completing the conservator paperwork. He thanked us for the call. Patient reported his mood as "alright" and denied SI/HI/AH/VH/hallucinations.
[2018-05-10 19:30] VITALS: BP 122/62
--- NOTE | 2018-05-11 07:29 | CP SOUTH PROGRESS NOTE PSYCH ---
Psych (Inpt) Progress Note Progress Note The pt.'s progress, inpatient treatment plan, and aftercare plans were discussed in the treatment planning meeting (team members: Shahnaz Davila LCSW; RN; OTR/L, and Psychiatrist). Vital Signs: Date Time Temp Pulse Resp B/P B/P 05/11 1128 98.5 75 18 122/62 05/10 2118 98.5 75 18 122/62 05/10 1930 98.5 75 122/62 Nursing staff reportes that patient is still bothering other patients especially roommates with rude statements and body language The patient is more visible on the unit, did not look sedated or tired bored /"nothing to do", "I am stuck in here," denied thinking of suicide still having brief periods of improvement punctuated by immature/poorly-thought- out/impulsive behvaiors The pt. said he was feeling "depressed," denied feeling completely hopeless or worthless disinterested, irritable but no episodes of agitation. The patient denied audio hallucinations, less guaded/no paranoia, no delusions, denied violent thoughts and denies thinking of homicide. He was coherent for the most part. 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 3) Opioid Use Disorder. 4) Cocaine Use Disorder. 5) Acquired Brain Injury/Traumatic (PROSPER/TBI) Treatment Plan Update: Increase Tenex to 2 mg BID Continue other medications unchanged
--- NOTE | 2018-05-11 17:49 | SOCIAL WORKER PROG NOTE PSYCH ---
Social Work Progress Note Progress Note This news writer spoke with Belen at [facility] at 9:57am ([phone]). She was informed of patient's threatening comments and stated that she would document this. This news writer met with patient. He described his mood as "good" and appeared more up beat than usual. He denied SI/HI/AH/VH and discussed looking forward to the meeting tomorrow. We discussed his behavior on the unit towards staff and patients. He agreed to be more appropriate in what he says to others.
[2018-05-11 19:35] VITALS: BP 110/52
--- NOTE | 2018-05-12 09:51 | CP SOUTH PROGRESS NOTE PSYCH ---
Psych (Inpt) Progress Note Progress Note The pt.'s progress, inpatient treatment plan, and aftercare plans were discussed in the treatment planning meeting (team members: Shahnaz Davila LCSW; RN; OTR/L, and Psychiatrist). Vital Signs: Date Time Temp Pulse B/P B/P O2 05/12 1142 70 107/58 05/12 1142 97.9 70 107/58 05/11 2121 61 120/64 Nursing staff reportes no behavioral problems in past 24 hours Today, he was rude, verbally abusive and very inappropriate with a staff memeber did not look sedated or tired, he was told that he will have to cease and desist from bullying and verbally abusing staff and patients alike No change in mood, he reports feeli depressed, bored /"nothing to do", "I am stuck in here," denied thinking of suicide, denied feeling completely hopeless or worthless He is disinterested in unit activities/groups, denied audio hallucinations, less guaded/no paranoia, no delusions, denied violent thoughts and denies thinking of homicide. He was coherent for the most part. 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 3) Opioid Use Disorder. 4) Cocaine Use Disorder. 5) Acquired Brain Injury/Traumatic (PROSPER/TBI) Treatment Plan Update: Continue medications unchanged
[2018-05-12 11:42] VITALS: BP 107/58
--- NOTE | 2018-05-12 17:54 | SOCIAL WORKER PROG NOTE PSYCH ---
Social Work Progress Note Progress Note Patient met with Melissa Woodall at 1pm for an assessment (TBI/PROSPER program). Patient informed this senior mortgage underwriter after the assessment that he felt it went well. This senior mortgage underwriter left a for Melissa ([phone]) at 5:44pm to follow up on the screening and inquire about any additional records/information that may be needed. A call back number was provided. This senior mortgage underwriter met with patient He stated that he had made some "jokes" towards staff. This senior mortgage underwriter encouraged him to apologize. Patient was informed that Dr. Burciaga would like to have a family meeting with his parents. He was agreeable to this. He denied SI/HI/AH/VH. 5:40pm This senior mortgage underwriter spoke with patient's father, Justin Whyte, by phone regarding the family meeting - 05/17/18 or 05/18/18. He was unsure if Mrs Whyte could attend the meeting (either in person or by phone) due to [email or web address] work policies. He will speak with her and call this senior mortgage underwriter tomorrow. He stated that he has submitted all documentation to the court regarding the conservatorship.
--- NOTE | 2018-05-13 07:16 | CP SOUTH PROGRESS NOTE PSYCH ---
Psych (Inpt) Progress Note Progress Note The pt.'s progress, inpatient treatment plan, and aftercare plans were discussed in the treatment planning meeting (team members: Shahnaz Davila LCSW; RN; OTR/L, and Psychiatrist). Vital Signs: Date Time Temp Pulse B/P 05/13 1110 73 05/13 1105 96.2 73 MSE: The patient did not look sedated or tired, it appears that so far he has kept to his promise to me yestereday to cease and desist from bullying, verbally abusing , or insulting staff or patients. The pt. looks brighter but reports no change in mood (i.e. depressed, bored / "nothing to do", feeling "stuck in here"). The pt. denies thinking of suicide, denies feeling completely hopeless or worthless He is disinterested in unit activities/groups, denied audio hallucinations, less guaded/no paranoia, no delusions, denies violent thoughts and denies thinking of homicide. He was coherent for the most part. 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 3) Opioid Use Disorder. 4) Cocaine Use Disorder. 5) Acquired Brain Injury/Traumatic (PROSPER/TBI) Treatment Plan Update: Increase Tenex to 2 mg AM and 3 mg QHS Increase PRN Seroquel to 50 mg Q4 hours PRN anxiety/agitation/restlessness Continue other medications unchanged
[2018-05-13 11:05] VITALS: BP 97/66
--- NOTE | 2018-05-13 14:43 | SOCIAL WORKER PROG NOTE PSYCH ---
Social Work Progress Note Progress Note The services requested require additional review. You will be contacted regarding the status of this request if further information is needed. An authorization decision will be made within the required timeframes and details of that decision may be found under the member's authorization history. Member Name Member ID Member Subscriber Name Subscriber ID NETTE NINO [id number] 1990 NETTE NINO [id number] Pended Authorization # Client Authorization # Type of Request [id number] CONCURRENT Date of Admission/ Start of Services Requested From Submission Date 03/22/2018 05/13/2018 05/13/2018 Level of Service Type of Service Level of Care Type of Care INPATIENT/HLOC [facility] Inpatient Hospital Reason Code P76 Provider Name & Address Provider ID Provider Alternate ID NPI # for Authorization MARIVEL ANG[address]ES [address] [facility] [id number]
--- NOTE | 2018-05-13 18:02 | SOCIAL WORKER PROG NOTE PSYCH ---
Social Work Progress Note Progress Note This engineering writer spoke with patient's father, Justin Whyte, by phone ([phone]) to schedule a family meeting (05/17/18 at 10:30am). He stated that his would be unable to attend due to work. Mr. Whyte inquired about the patient's progress. He was informed that the patient has been making inappropriate/ threatening comments to staff, which would not be tolerated. Mr. Whyte plans to visit him this weekend and speak with him by phone daily. He stated that he will continue to inform the patient that inappropriate behavior is not acceptable. Mr. Whyte also stated that the [employer] paperwork has been submitted to the court and a hearing is scheduled for 06/01/18. He and his daughter would like to be co-conservators. This engineering writer met with patient. He stated that his comments towards staff are meant to be jokes and that this occurs when he is feeling frustrated. This engineering writer assisted the patient in identifying strategies to manage his frustration rather than making inappropriate comments. He identified talking to staff as a coping skill to manage frustration. Patient discussed feeling frustrated and bored due to his long inpatient admission. He stated that at times he would prefer to be discharged. We discussed consequences of doing so rather than following through with treatment. Patient was informed that this engineering writer left a vm for the clinician who completed destinee [facility] assessment and has not yet heard back. This engineering writer will follow up with another phone call to her on Wednesday. Patient's father, Justin Whyte, informed this engineering writer that the patient contacted him by phone stating that he no longer wanted to remain in the hospital. He stated that his is on the way to the hospital to visit him. He is aware that patient has made inappropriate comments to staff and is concerned that the patient will be discharged. He stated that the patient would not be able to return home and that he encouraged him to follow through with treatment recommendations. He stated that he will visit him this weekend and we confirmed that 10:30am family meeting on 05/17/18.
[2018-05-13 20:35] VITALS: BP 103/56
[2018-05-13 20:59] VITALS: BP 104/58
--- NOTE | 2018-05-14 17:55 | CP SOUTH PROGRESS NOTE PSYCH ---
Psych (Inpt) Progress Note Progress Note Include the following elements, when applicable: Involvement in the active treatment of the patient with behavioral observations of the patient and the patient's response to the treatment. Review of the ongoing treatment process in the context of the treatment plan. Indication of how multi-disciplinary staff members are carrying out the treatment plan. Plans for future interventions and recommendations for revision of the treatment plan. Liaison with other physicians/providers. Progress Note: Case discussed with charge nurse.Pt has been visible in the unit. Irritable and inappropiate at times with other peers ( teasing them). Taking meds. Upon assessment reports feeling " anxious" and frustrated about prolonged hospitalization. Denies any SE related to medication regimen. MSE Disheveled, cooperative, intense eye contact; Perseverative about anxiety. NO SI/HI No AVH Some tangentiality. I/J LImited. A/P 27 y/o WM TBI. MNCD. Polysubstance Use Dx. Pt has been intermittently irritable and innapropiate with peers. COntinue same medication regimen .
[2018-05-14 19:05] VITALS: BP 125/59
--- NOTE | 2018-05-15 13:02 | CP SOUTH PROGRESS NOTE PSYCH ---
Psych (Inpt) Progress Note Progress Note Include the following elements, when applicable: Involvement in the active treatment of the patient with behavioral observations of the patient and the patient's response to the treatment. Review of the ongoing treatment process in the context of the treatment plan. Indication of how multi-disciplinary staff members are carrying out the treatment plan. Plans for future interventions and recommendations for revision of the treatment plan. Liaison with other physicians/providers. Progress Note: Lenard has remained in behavioral control. Tolerating Guanfacine trial. Complains of chronic anxiety. Has not used any PRNs past 24h. Fair sleep and appetite. MSE Holden male disheveled. Poro eye contact. No SI/HI. No AVH. poverty specch and thougth. [place]. Cog AAox3. I/J LImited. 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 This weekend overall stable. Tolerating med regimen. 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
[2018-05-15 14:26] VITALS: BP 134/66
[2018-05-15 19:54] VITALS: BP 134/79
--- NOTE | 2018-05-16 08:10 | CP SOUTH PROGRESS NOTE PSYCH ---
Psych (Inpt) Progress Note Progress Note Vital Signs Date Time Temp Pulse Resp B/P B/P Pulse O2 FiO2 05/16 1100 83 108/59 05/16 1053 97.5 83 108/59 05/15 2107 63 134/79 05/15 1954 98.9 63 134/79 05/15 1426 98.4 64 134/66 Lenard was in good behavioral control. He has a tendency of --at times-- irritating other patients and staff with his inappropriate words . Tolerating Guanfacine trial. Denied side effects, still reporting some anxiety. Fair sleep and appetite. He denied wishing or thinking of suicide. He denied having violent thoughts or thoughts of homicide. He denied hallucinations. There were no delusions during the interview. 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 This weekend overall stable. Tolerating med regimen. Awaiting placement in [facility] program Treatment plan update: Increase Tenex to 2 mg in the morning and 4 mg at bedtime otherwise continue same other medications will continue same tx plan.
[2018-05-16 10:53] VITALS: BP 108/59
[2018-05-16 15:27] VITALS: BP 115/69
--- NOTE | 2018-05-16 18:46 | SOCIAL WORKER PROG NOTE PSYCH ---
Social Work Progress Note Progress Note This technical writer and editor spoke with Belen at [facility] regarding the wait list. She was unable to provide a wait time for this patient. This technical writer and editor spoke with Melissa Mathews by phone regarding the [facility] program. She explained that their program is community based (rather than an inpatient bed). If the patient is accepted, she would be able to "follow him." This technical writer and editor met with patient. Patient was in restraints. Patient stated that he was experiencing suicidal thoughts and did not feel safe with thoughts to hang himself. He was not interested in attending the family meeting tomorrow. He was informed of the call to [facility]en as well as the conversation with Melissa Woodall. This technical writer and editor discussed with nursing (Van Pierce, RN) who explained the reason for restraints. This technical writer and editor informed Van Pierce of the discussion with the patient, in which he reported SI.
[2018-05-16 20:04] VITALS: BP 105/65
--- NOTE | 2018-05-17 07:31 | CP SOUTH PROGRESS NOTE PSYCH ---
Psych (Inpt) Progress Note Progress Note The pt.'s progress, inpatient treatment plan, and aftercare plans were discussed in the treatment planning meeting (team members: Shahnaz Davila LCSW, RN, Activities Therapist, and Psychiatrist). Vital Signs Date Time Temp Pulse B/P B/P 05/17 1125 67 119/55 05/17 1107 97.0 67 119/55 05/16 2143 62 110/60 05/16 2004 98.3 66 105/65 Lenard slept most of the morning hours. 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 Tolerating med regimen. 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 3) Opioid Use Disorder. 4) Cocaine Use Disorder. 5) Acquired Brain Injury/Traumatic (PROSPER/TBI) Treatment Plan Update: Increase guanfacine to 2 mg in the morning and 4 mg at bedtime Continue all other medications unchanged Clonazepam 1 MG TID 05/16 1425 AC Haloperidol 5 MG Q6P PRN 05/16 1500 AC Hydrocortisone 1 RALF TID PRN 04/29 2100 AC [place] Carbonate 300 MG 2000 05/05 2000 AC [place] Carbonate 300 MG 0800,1400 04/22 1400 AC Loratadine 10 MG DAILY 05/02 1310 AC Lorazepam 2 MG Q6P PRN 05/16 1500 AC Magnesium Hydroxide 30 ML AT BEDTIME NEED.. 03/22 2030 AC Nicotine 4 MG Q2P PRN 05/09 1445 AC Quetiapine Fumarate 100 MG Q4P PRN 05/16 1430 AC Sertraline HCl 200 MG DAILY 05/17 0900 AC Trazodone HCl 100 MG AT BEDTIME 05/08 2100 AC Trazodone HCl 100 MG AT BEDTIME 05/08 2100 AC Guanfacine HCl 2 MG 05/14 0900 DC 05/16 PO 1100 Guanfacine HCl 3 MG AT BEDTIME 05/13 2100 AC 05/16 PO 2143 Haloperidol 5 MG Q6P PRN 05/16 1500 AC 05/16 PO 2329 Haloperidol 5 MG Q6P PRN 05/16 1500 AC IM Haloperidol 5 MG Q6-PRN PRN 05/05 1045 DC 05/13 PO 1438 Hydrocortisone 1 RALF TID PRN 04/29 2100 AC 05/03 EXT 1917 [place] Carbonate 300 MG 2000 05/05 2000 AC 05/16 PO 1939 [place] Carbonate 300 MG 0800,1400 04/22 1400 AC 05/16 PO 1353 Loratadine 10 MG DAILY 05/02 1310 AC 05/16 PO 1100 Lorazepam 2 MG Q6P PRN 05/16 1500 AC 05/16 PO 1937 Lorazepam 2 MG Q6P PRN 05/16 1500 AC IM Magnesium Hydroxide 30 ML AT BEDTIME NEED.. 03/22 2030 AC PO Nicotine 4 MG Q2P PRN 05/09 1445 AC 05/16 PO 1818 Quetiapine Fumarate 100 MG Q4P PRN 05/16 1430 AC PO Quetiapine Fumarate 50 MG Q4P PRN 05/13 1145 DC 05/14 PO 1507 Sertraline HCl 200 MG DAILY 05/17 0900 AC PO Sertraline HCl 150 MG DAILY 05/07 09 DC 05/16 PO 1101 Trazodone HCl 100 MG AT BEDTIME 05/08 2100 AC 05/16 PO 214
[2018-05-17 11:07] VITALS: BP 119/55
--- NOTE | 2018-05-17 11:50 | SOCIAL WORKER PROG NOTE PSYCH ---
Social Work Progress Note Progress Note Concurrent review completed through the [facility] online portal and is listed as "pended." Pended Authorization #[id number] Client Authorization #[id number] Type of Request CONCURRENT
--- NOTE | 2018-05-17 17:14 | SOCIAL WORKER PROG NOTE PSYCH ---
Social Work Progress Note Progress Note This copy writer spoke with Belen at [facility] regarding updates, however, was unable to obtain an anticipated wait times. Dr. Burciaga and this copy writer met with the patient's father, Justin Whyte, for a family meeting. Patient refused to attend. Patient's father was informed that this copy writer continues to contact [facility] weekly, however, is not provided an anticipated wait times. He and his will continue to provide encouragement and reinforce messages regarding inappropriate behaviors. Mr. Whyte stated that the conservatorship hearing has been scheduled for 06/01/18, and he and is daughter are petitioning to be co-conservators.
[2018-05-17 20:07] VITALS: BP 115/61
[2018-05-17 21:04] VITALS: BP 110/68
--- NOTE | 2018-05-18 10:41 | CP SOUTH PROGRESS NOTE PSYCH ---
Psych (Inpt) Progress Note Progress Note Current Medications Vital Signs Date Time Temp Pulse Resp B/P B/P Pulse O2 05/18 1033 97.6 70 18 110/68 05/17 2104 70 110/68 99 05/17 2013 61 115/61 05/17 2007 97.6 59 115/61 05/17 1125 67 119/55 The pt.'s progress, inpatient treatment plan, and aftercare plans were discussed in the treatment planning meeting (team members: HONEST JOHN ROCKET CREW MEMBER, RN, OTR/L, and Psychiatrist). Lenard was up and about this morning/visible in the unit. He was calm and cooperative and agreed to be interviewed. He reported that he is not as anxious as yesterday. He denied side effects from increasing the dose of the Klonopin yesterday dose of Tenex. Denied feeling dizzy, he seemed to be stable and steady in his gait. He reported that he has no intentions of hurting himself today and denied that he has any intention of wrapping sheets around his neck as he did yesterday He denied thoughts of suicide. He denied hallucinations, he denied feeling paranoid, he did not seem to be responding to internal stimuli. There were no delusions during the interview and he seemed to be coherent/no formal thought disorder. Assessment Update: Edison Whyte (: ) is a 27-year-old single white male TBI/ MNCD secondary to TBI/ Polysusbtance Use DxChristiane Hogan denied side effects, tolerating med regimen. 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 3) Opioid Use Disorder, early remission, in a controlled environment 4) Cocaine Use Disorder. 5) Acquired Brain Injury/Traumatic (PROSPER/TBI) Treatment Plan Update: Continue all medications unchanged We will discussed with nursing staff the patient having his bed sheets back both keeping him on a one-to-one observation for the time being. PO 1033 Lorazepam 2 MG Q6P PRN 05/16 1500 AC 05/17 PO 1826 Lorazepam 2 MG Q6P PRN 05/16 1500 AC IM Magnesium Hydroxide 30 ML AT BEDTIME NEED.. 03/22 2030 AC PO Nicotine 4 MG Q2P PRN 05/09 1445 AC 05/17 PO 2207 Quetiapine Fumarate 100 MG Q4P PRN 05/16 1430 AC 05/17 PO 1906 Sertraline HCl 200 MG DAILY 05/17 0900 AC 05/18 PO 1032 Trazodone HCl 100 MG AT BEDTIME 05/08 2100 AC 05/17 PO 2254 Vital Signs Date Time Temp Pulse Resp B/P B/P Pulse O2 O2 Flow FiO2 Mean Ox Delivery Rate 05/18 1033 97.6 70 18 110/68 05/17 2104 70 110/68 99 05/17 2013 61 115/61 05/17 2007 97.6 59 115/61 05/17 1125 67 119/55 05/17 1107 97.0 67 119/55
--- NOTE | 2018-05-18 11:07 | SOCIAL WORKER PROG NOTE PSYCH ---
Social Work Progress Note Progress Note Faxed MD notes to [facility] Belen - from 05/10/18-05/17/18. Recieved Fax confirmation.
[2018-05-18 11:19] VITALS: BP 144/66
--- NOTE | 2018-05-18 17:21 | SOCIAL WORKER PROG NOTE PSYCH ---
Social Work Progress Note Progress Note This display card writer met with patient. He sat on the edge of his bed and provided minimal to no eye contact. He was unable to identify a reason for not wanting to meet yesterday. He reported feeling depressed and "lost". When asked about SI, he responded, "no answer. I want to keep my blanket." Patient stated that he had not spoken with his father since yesterday and was encouraged to do so. Patient reported feeling hopeless. Patient was on a one to one during the time of this meeting. He was minimally engaged in the discussion and provided brief responses.
[2018-05-18 19:58] VITALS: BP 130/64
[2018-05-19 07:40] VITALS: BP 116/59
[2018-05-19 10:12] LABS: LITHIUM 0.6 mmol/L (0.6-1.2)
--- NOTE | 2018-05-19 10:17 | CP SOUTH PROGRESS NOTE PSYCH ---
Psych (Inpt) Progress Note Progress Note Laboratory Tests 05/19 Sodium (137 - 145 mmol/L) 138 Potassium (3.5 - 5.1 mmol/L) 4.0 Chloride (98 - 107 mmol/L) 105 Carbon Dioxide (22 - 30 mmol/L) 22 Anion Gap (5 - 16) 11 BUN (9 - 20 mg/dL) 13 Creatinine (0.7 - 1.2 mg/dL) 0.9 Estimated GFR (>60 ml/min) > 60 BUN/Creatinine Ratio (7 - 25 %) 14.4 Free T4 (0.79 - 2.35 ng/dL) 1.00 Total T3 (0.97 - 1.69 ng/mL) 0.96 L TSH &T3 &Free T4 Intrp (0.27 - 4.20 uIU/mL) 8.600 H [place] (0.6 - 1.2 mmol/L) 0.6 Vital Signs Date Time Temp Pulse Resp B/P B/P Pulse O2 05/19 0745 97.4 79 18 116/59 05/19 0740 97.4 79 116/59 05/18 2110 98.9 57 18 130/64 05/18 1958 98.9 57 130/64 05/18 1119 97.3 87 144/66 The pt.'s progress, inpatient treatment plan, and aftercare plans were discussed in the treatment planning meeting (team members: LIMITED RADIOLOGY TECHNICIAN, RN, OTR/L, and Psychiatrist). Lenard was calm, cooperative, and in good behavioral control today. He reported that he was "just joking" when he told the nurse earlier that he was thinking of drowning self in the fish tank. He denied side effects from his current medications. He denied feeling dizzy or over-sedated; and he was steady on his feet. He reported to me that he has no thoughts or intentions of hurting self. He denied thoughts of suicide. He denied hallucinations, he denied feeling paranoid, and he did not seem to be responding to internal stimuli. There were no delusions during the interview and he seemed to be coherent/no formal thought disorder. Assessment Update: Edison Whyte (: 1990) is a 27-year-old single white male TBI/ MNCD secondary to TBI. Edison denied side effects, tolerating med regimen. Awaiting placement in fpc program, [facility] Still on 1:1 but he denied having any thoughts of suicide today and denied that he has any intentions of wrapping sheets around his neck or other forms of self- harm. 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 3) Opioid Use Disorder, early remission, in a controlled environment 4) Cocaine Use Disorder. 5) Acquired Brain Injury/Traumatic Brain Injury (PROSPER/TBI) Treatment Plan Update: Continue all medications unchanged
--- NOTE | 2018-05-19 15:03 | SOCIAL WORKER PROG NOTE PSYCH ---
Social Work Progress Note Progress Note This inspector automatic typewriter attempted to meet with the patient throughout the day, however, he was sleeping. This inspector automatic typewriter spoke with nursing (NICO Cabello RN) who stated that he was given Klonopin this morning as ordered and has slept the remained of the day. As discussed with nursing as well as in the team meeting this morning, patient continues to report SI, making threats at times, and "tormenting" other patients. This inspector automatic typewriter spoke with Belen by phone today at [facility] ([phone], 2:38pm) with update on behavioral presentation. He request for a letter regarding his behavior was relayed to Dr. Santa. 3:02pm: This inspector automatic typewriter left a vm for a vm for Melissa Woodall with [facility] services ([phone]) to follow up on records request and if any additional records were needed. A call back number was provided.
[2018-05-19 20:15] VITALS: BP 101/62
[2018-05-19 22:47] VITALS: BP 93/59
[2018-05-19 23:03] LABS: ABSOLUTE BASOPHIL COUNT 0.1 /CUMM (0.0-0.2); ABSOLUTE EOSINOPHIL COUNT 0.1 /CUMM (0.0-0.7); ABSOLUTE GRANULOCYTE CT 5.2 /CUMM (1.4-6.5); ABSOLUTE LYMPH COUNT 1.7 /CUMM (1.2-3.4); ABSOLUTE MONOCYTE COUNT 0.4 /CUMM (0.10-0.60); BASOPHIL % 0.7 % (0.0-2.0); GRANULOCYTE % 68.6 % (42.2-75.2); HEMATOCRIT 41.1 % (42-52); MEAN CORPUSCULAR HGB 30.6 PG (27.0-31.0); MEAN CORPUSCULAR HGB CONC 33.4 G/DL (33.0-37.0); MEAN CORPUSCULAR VOLUME 91.7 FL (80.0-94.0); PLATELET COUNT 290 /CUMM (130-400); RBC DISTRIBUTION WIDTH 12.8 % (11.5-14.5); RED BLOOD CELL CT 4.48 /CUMM (4.70-6.10); WHITE BLOOD CELL COUNT 7.6 /CUMM (4.8-10.8)
[2018-05-20 06:55] VITALS: BP 92/68
[2018-05-20 07:31] VITALS: BP 105/68
--- NOTE | 2018-05-20 08:55 | CP SOUTH PROGRESS NOTE PSYCH ---
Psych (Inpt) Progress Note Progress Note Laboratory Tests 05/19 Sodium (137 - 145 mmol/L) 137 Potassium (3.5 - 5.1 mmol/L) 4.2 Chloride (98 - 107 mmol/L) 99 Carbon Dioxide (22 - 30 mmol/L) 32 H Anion Gap (5 - 16) 5 BUN (9 - 20 mg/dL) 13 Creatinine (0.7 - 1.2 mg/dL) 1.0 Estimated GFR (>60 ml/min) > 60 BUN/Creatinine Ratio (7 - 25 %) 13.0 Troponin I (<0.11 ng/ml) < 0.01 WBC (4.8 - 10.8 /CUMM) 7.6 RBC (4.70 - 6.10 /CUMM) 4.48 L Hgb (14.0 - 18.0 G/DL) 13.7 L Hct (42 - 52 %) 41.1 L MCV (80.0 - 94.0 FL) 91.7 MCH (27.0 - 31.0 PG) 30.6 MCHC (33.0 - 37.0 G/DL) 33.4 RDW (11.5 - 14.5 %) 12.8 Plt Count (130 - 400 /CUMM) 290 MPV (7.4 - 10.4 FL) 8.0 Gran % (42.2 - 75.2 %) 68.6 Lymphocytes % (20.5 - 51.1 %) 22.8 Monocytes % (1.7 - 9.3 %) 5.9 Eosinophils % (0 - 5 %) 2.0 Basophils % (0.0 - 2.0 %) 0.7 Absolute Granulocytes (1.4 - 6.5 /CUMM) 5.2 Absolute Lymphocytes (1.2 - 3.4 /CUMM) 1.7 Absolute Monocytes (0.10 - 0.60 /CUMM) 0.4 Absolute Eosinophils (0.0 - 0.7 /CUMM) 0.1 Vital Signs Vital Signs Date Time Temp Pulse B/P B/P Pulse FiO2 Mean Ox 05/20 0842 61 105/05/20 0731 97.1 61 105/05/20 0655 47 92/68 05/20 0240 51 05/197 47 93/59 05/192 44 05/19 2015 99.1 57 101/62 The pt.'s progress, inpatient treatment plan, and aftercare plans were discussed in the treatment planning meeting (team members: CORRECTION WORKER, RN, OTR/L, and Psychiatrist). Lenard attempted to hold on to a towel (supposedly to try to wrap around neck), he later was redirected from plastic knives as he was (supposedly) planning to cut self He had low BP and pulse last evening and early this morning (see above). When I saw him at 9:15 AM, Edison denied feeling dizzy or over-sedated; and he was steady on his feet. He reported to me that he feels that his "life is over" and that he has "nothing to live for" and that he would like to go to sleep and not wake up. He denied that he has intentions of killing self on the unit (but that quickly changes sometimes in as little as 30 minutes) He denied hallucinations, denied feeling paranoid, and there were no delusions during the interview and he seemed to be coherent/no formal thought disorder. Assessment Update: Edison Whyte (: 1990) is a 27-year-old single white male who has been on the Inpatient Psych Unit at since 03/22/2018. He is awaiting placement in checker cashier program, [facility] Still on 1:1 because of ongoing provocative/immature/disruptive behaviors (e.g. hiding a towel under his scrubs, supposedly to wrap around neck, attempting to hide plastic knives --supposedly-- to cut self). 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 3) Opioid Use Disorder, early remission, in a controlled environment; 4) Cocaine Use Disorder. 5) Acquired Brain Injury/Traumatic Brain Injury (PROSPER/TBI) Treatment Plan Update: Given haldol 5 mg at Ativan 2 mg this AM Reduce tenex to 1 mg AM and 2 mg at bedtime because of the low BP and low pulse yesterday into early AM today spread Klonopin to 1 mg AM 1 mg ~2:00PM + 2 mg QHS Reduce [place] to 300 mg BID (thryroid functin declined since starting lithium), will follow up blood work next week and may need to continues titration down or discontinuation (?)
--- NOTE | 2018-05-20 12:02 | IP INCIDENTAL NOTE PSYCH ---
Incidental Note Notation: Julian Burciaga MD [facility]'s Inpatient Psych. Unit [address] [facility] [place] [address] May 19, 2018 Attention: DMHAS Mr. Edison Whyte (: 1990) is a 27-year-old single white male who has been at [facility]'s Inpatient Psychiatric Unit since March 22, 2018. Edison was admitted after he told the Emergency Room physician that he was thinking of hanging himself. I believe his Diagnoses to be: 1) Major Neurocognitive Disorder Due to Traumatic Brain Injury, with behavioral disturbance (F02.81). 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 3) Opioid Use Disorder, early remission, in a controlled environment. 4) Cocaine Use Disorder. 5) Acquired Brain Injury/Traumatic Brain Injury (PROSPER/TBI) As of today, 05/19/2018, Edison's mental state is as follows: Edison remains on 1:1 observation status (continuous observation) due to ongoing concern about his unpredictability and threats of self harm. Although he was calm and in good behavioral control today, his mood and behavioral control changes rather quickly and unpredictably. Earlier today, he told the nurse earlier that he was thinking of suicide by drowning self in the fish tank. When I questioned him, he claimed that he was "just joking." Earlier this week he put sheets around neck and squeezed so hard his face turned blue and left carr on his neck. He denied hallucinations, he denied feeling paranoid, and he did not seem to be responding to internal stimuli. There were no delusions during the interview and he seemed to be coherent/no formal thought disorder. I don't see any other possibilities but a terminal [facility] state bed at this time. His track record of at least 11 inpatient hospitalizations and several suicide attempts (including one while at [facility] in [place]), as well not following up or connecting with any outpatient [facility] agencies over the years , makes him a high risk in the community at this time. Sincerely, Julian Burciaga MD
--- NOTE | 2018-05-20 12:53 | IP INCIDENTAL NOTE PSYCH ---
Incidental Note Notation: Addendum /Follow up to my previous note: Around 12:40 PM, security were called because patient would not follow direction and was reaching to plastive knives, refusing to stay in his room and making provocative statements about the sitter touching him inappropriately ( with a smirk on his face) Patient was given 5 mg haloperidol + 2 mg Ativan + 50 mg benadryl IM I reduced his sertraline dose to 150 mg daily I reduced his bedtime trazodone to 150 mg
--- NOTE | 2018-05-20 16:42 | SOCIAL WORKER PROG NOTE PSYCH ---
Social Work Progress Note Progress Note Letters written by Dr. Burciaga and Bailey Nobles were faxed to [facility], attn: Belen, today at [phone] at 9:57am. This customs entry writer met with patient. Patient reported feeling depressed and experiencing SI with a plan to cut himself. "I just want to ." He refused to inform this customs entry writer how he would cut himself. Patient inquired about any information from [facility] and was informed that this customs entry writer faxed two letters from Dr. Burciaga and Bailey Nobles. Patient was unable to provide a "safety promise" and is currently on a 1:1. Patient denied HI/AH/VH. This customs entry writer spoke with Elliot Pierce RN regarding patient. He stated that an Order #7 was called earlier due to the patient takinga plastic knife and trying/ threatening to cut himself. Van Pierce stated that he is becoming increasingly physical in attempting to harm himself. Van Pierce was informed of this customs entry writer's conversation with the patient.
--- NOTE | 2018-05-20 16:47 | SOCIAL WORKER PROG NOTE PSYCH ---
Social Work Progress Note Progress Note [facility] Determination Status: PENDED The services requested require additional review. You will be contacted regarding the status of this request if further information is needed. An authorization decision will be made within the required timeframes and details of that decision may be found under the member's authorization history. Member Name Member ID Member Subscriber Name Subscriber ID NETTE NINO [id number] 1990 NETTE NINO [id number] Pended Authorization # Client Authorization # Type of Request [id number] CONCURRENT Date of Admission/ Start of Services Requested From Submission Date 03/22/2018 05/20/2018 05/20/2018 Level of Service Type of Service Level of Care Type of Care INPATIENT/HLOC MENTAL HEALTH [facility]PATIENT [facility]IENT [facility] Reason Code P76 Provider Name & Address Provider ID Provider Alternate ID NPI # for Authorization RODRIGUEZ FALCON [address] [facility] [id number]
[2018-05-20 20:01] VITALS: BP 104/61
[2018-05-21 08:54] VITALS: BP 123/76
--- NOTE | 2018-05-21 11:24 | CP SOUTH PROGRESS NOTE PSYCH ---
Psych (Inpt) Progress Note Progress Note Include the following elements, when applicable: Involvement in the active treatment of the patient with behavioral observations of the patient and the patient's response to the treatment. Review of the ongoing treatment process in the context of the treatment plan. Indication of how multi-disciplinary staff members are carrying out the treatment plan. Plans for future interventions and recommendations for revision of the treatment plan. Liaison with other physicians/providers. Progress Note: Down, depressed, dysphoric overall. Becomes slightly more alert, and mildly sarcastic/joking as I've seen him before later during the evaluation. Unable to come up with goals for the future, things that he enjoys, states that he sleeps poorly and has no appetite to eat. Staff noted a 2 inch superficial laceration on his right hand, from where he had held knife yesterday most likely. He stated that he thought it was from then and did not say he had any other self harm attempts. Said he wants to , no active plan. We discussed coping skills, socialization, behavioral activation, reading magazines as he has difficulty concentrating on books now. MSE: overweight young man, in hospital [facility], calm, head down, some eye contact. Speech soft and regular rate. Not internally preoccupied, at times some delay in response related to his mood. Mood is down and affect is constricted and stable. Thought process is linear. Thought content positive for wanting to without active plan, hopeless, anhedonia. Not hallucinating. No thoughts to harm others. Insight and judgment both impaired 27 year old man with extensive psychiatric history, TBI, depressive sx, impulsive and manipulative, high risk behaviors. Has been making suicidal gestures over the last week and appears more down in general, on a 1:1 sitter for suicide risk Plan - continue sitter for suicide risk - encourage socialization, calling father, speaking with staff - superficial laceration on hand, can put ointment if itchy or uncomfortable, no other intervention indicated - likely from when he had knife yesterday, does not appear to be fresh.
[2018-05-21 19:24] VITALS: BP 136/65
[2018-05-22 08:43] VITALS: BP 108/61
--- NOTE | 2018-05-22 09:25 | CP SOUTH PROGRESS NOTE PSYCH ---
Psych (Inpt) Progress Note Progress Note Include the following elements, when applicable: Involvement in the active treatment of the patient with behavioral observations of the patient and the patient's response to the treatment. Review of the ongoing treatment process in the context of the treatment plan. Indication of how multi-disciplinary staff members are carrying out the treatment plan. Plans for future interventions and recommendations for revision of the treatment plan. Liaison with other physicians/providers. Progress Note: Yesterday morning banging head on door, tying socks together to create a ligature, grabbing pens to try and cut self, walking away from sitters. Received oral and then IM PRN medications due to high risk behaviors. He didn't appear to continue the acute high risk behaviors afterward, but continued to pace, uncomfortable, and c/o SI and hopelessness. This morning marginally less agitated, still with head down, depressed. Said that he woke up shakign and anxious, that mornings are worse for him. Wants to commit suicide when discharged, has no means to do it now, has no plans of what to do on discharge. MSE: overweight young man, in hospital [facility], with head down and poor eye contact. He is calmer and appears less agitated marginally comapred to yesterday. His speech is regular volume and rate. His mood is depressed and affect is constricted to blunted, congruent to his mood. Thinking is concrete and focused on depression and suicidality. No delusions elicited. Not internally preoccupied. No thoughts to harm others. Insight and judgment both impaired A: 27 year old man with extensive psychiatric history, TBI, depressive sx, impulsive and manipulative, high risk behaviors. Has been making suicidal gestures over the last week and appears more down in general, on a 1:1 sitter for suicide risk Plan - continue sitter for suicide risk - encourage socialization, speaking with father (came yesterday to visit) - continue encouraging him to engage with sitters, prasanna when he has impulsive thoughts.
[2018-05-22 19:59] VITALS: BP 146/80
--- NOTE | 2018-05-23 08:19 | CP SOUTH PROGRESS NOTE PSYCH ---
Psych (Inpt) Progress Note Progress Note Vital Signs Date Time Temp Pulse B/P B/P 05/23 0849 75 101/72 05/23 0847 97.1 75 101/72 05/22 2044 91 146/80 05/22 1959 98.[address] Stevens's notes for the weekend of 05/21 and 05/22 The pt.'s progress, inpatient treatment plan, and aftercare plans were discussed in the treatment planning meeting (team members: JACQUARD LOOM HEDDLES TIER, RN, OTR/L, and Psychiatrist). Edison told Dr. Stevens on Wednesday05/21/2018 that he was depressed and wanted to . There was evidence of superficial saurabh on the skin of Rt. hand ( possibly from a plastic knife the day before (?)) Today, Edison reported that he is still thinking of suicide. He feels that his "life is over" and that he has "nothing to live for" and that he would like to go to sleep and not wake up. He is solely focused on medications. He denied hallucinations, denied feeling paranoid, and there were no delusions during the interview and he seemed to be coherent/no formal thought disorder. Assessment Update: Edison Whyte (: 1990) is a 27-year-old single white male who has been on the Inpatient Psych Unit at since 03/22/2018. He is awaiting placement in [facility], [facility] Still on 1:1 because of ongoing provocative/immature/disruptive behaviors (e.g. scratching self with plastic knife, attempting to hide plastic knives, rude behaviors). 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 3) Opioid Use Disorder, early remission, in a controlled environment; 4) Cocaine Use Disorder. 5) Acquired Brain Injury/Traumatic Brain Injury (PROSPER/TBI) Treatment Plan Update: Reduce Tenex to 1 mg BID Reduce Klonopin 1 mg AM + 2 mg QHS (stop mid-day dose) Continue [place] 300 mg BID repeat TSH
[2018-05-23 08:47] VITALS: BP 101/72
--- NOTE | 2018-05-23 10:47 | IP INCIDENTAL NOTE PSYCH ---
Incidental Note Notation: PO Agitation order change to Trilafon 8 mg plus 50 mg Benadryl IM agitation orders changed to Haldol 5 mg plus benadryl 50 mg IM Trilafon 8 mg BID added as regular regimen
--- NOTE | 2018-05-23 17:24 | SOCIAL WORKER PROG NOTE PSYCH ---
Social Work Progress Note Progress Note This quality analyst/technical writer spoke with Belen at [facility] ([phone]). She was unable to provide a date in which a bed might be available. This quality analyst/technical writer and Tiffanie Nj met with the patient. He was informed of the call to [facility]. He reported ongoing SI with a plan to hang himself with a sheet. He also discussed, with a smile, thoughts to "tie my sitter's shoe laces together. " Nursing and sitter were informed of this as well as his SI/plan. (Sitter did not have any shoelaces). PAtient stated that he did not feel that Dr. Burciaga was helpful regarding the medications as he was not medicated enough that would cause him to sleep. Patient denied HI and hallucinations.
--- NOTE | 2018-05-24 08:56 | SOCIAL WORKER PROG NOTE PSYCH ---
Social Work Progress Note Progress Note [facility] Consumer Status Sheet faxed to Melissa Woodall at [facility], fax at 8:52am today.
[2018-05-24 08:59] VITALS: BP 104/65
--- NOTE | 2018-05-24 10:54 | CP SOUTH PROGRESS NOTE PSYCH ---
Psych (Inpt) Progress Note Progress Note Pt. reported feeling depressed and wanting to /kill self. Last night wrapped his hospital issues scrubs around neck. He says his "life is over" and "nothing to live for." He refused most medications last night and this morning, he refused to do blood work this morning. He denied hallucinations, denied feeling paranoid, and there were no delusions during the interview and he seemed to be coherent/no formal thought disorder. Treatment Plan Update: D/C Tenex Continue Klonopin 1 mg AM + 2 mg QHS (stop mid-day dose) D/C [place] Chlorpromazine 100 MG I.M. Q4P PRN agitation Chlorpromazine 100 MG PO Q4P PRN D/C PRN Haloperidol D/C PRN Perphenazine Continue regular Perphenazine 8 MG BID D/C Sertraline Continue Trazodone 150 MG AT BEDTIME
--- NOTE | 2018-05-24 16:24 | SOCIAL WORKER PROG NOTE PSYCH ---
Social Work Progress Note Progress Note [facility] concurrent review entered: Determination Status: PENDED The services requested require additional review. You will be contacted regarding the status of this request if further information is needed. An authorization decision will be made within the required timeframes and details of that decision may be found under the member's authorization history. Member Name Member ID Member Subscriber Name Subscriber ID NETTE NINO [id number] 1990 NETTE NINO [id number] Pended Authorization # Client Authorization # Type of Request [id number] CONCURRENT Date of Admission/ Start of Services Requested From Submission Date 03/22/2018 05/24/2018 05/24/2018 Level of Service Type of Service Level of Care Type of Care INPATIENT/HLOC Mental Health Inpatient Inpatient Hospital [facility]
--- NOTE | 2018-05-24 17:15 | SOCIAL WORKER PROG NOTE PSYCH ---
Social Work Progress Note Progress Note This machine sign writer met with patient. He stated that he felt tired due to waking up early today. He stated that he has been refusing his medications as "nothing's working." He stated that he has also been refusing "the benzos" so that he would have a seizure from withdrawals. Patient reported ongoing SI with plan to hang himself. He discussed feeling hopeless. We talked about strategies to manage his emotions and to remain safe, particularly by alerting staff when feeling unsafe. He denied HI/AH/VH. He was informed that this machine sign writer would contact [facility] and that this machine sign writer's cleaning staff supervisor would also contact [facility]. 2:57pm This machine sign writer faxed MD progress notes from 05/17/18-05/24/18 [facility]el [facility], to fax # [phone]. This machine sign writer spoke with Belen who was unable to provided any anticipated wait time for a bed. She stated that [facility] could be contacted. 4:55pm This machine sign writer spoke with patient's father, Justin Whyte ([phone]). He was informed that this machine sign writer spoke with [facility], however, no anticipated wait time is available. He stated that the [facility] hearing is scheduled as he previously reported. He stated that he visited his son this afternoon.
[2018-05-24 19:42] VITALS: BP 125/75
[2018-05-25 07:58] VITALS: BP 114/68
--- NOTE | 2018-05-25 11:03 | CP SOUTH PROGRESS NOTE PSYCH ---
Psych (Inpt) Progress Note Progress Note The pt.'s progress, treatment plan, and aftercare plans were discussed in the treatment planning meeting (the team members were: DUSTY, RN, Occupational Therapist, and Psychiatrist). Mental Status Exam: Pt. reported sore shoulders from the injections he received. He is still feeling depressed but denied wanting to or kill self today. No attempts at self harm since yesterday. He says that he is not going to act out (i.e. he says hes not going to wrap anything around his neck and will not cut self and he says he will abide by the directions of the staff). Currently, he is only on Trazodone & Klonopin regular schedule and only Ativan PO PRN. He denied hallucinations, denied feeling paranoid, and there were no delusions during the interview and he seemed to be coherent/no formal thought disorder. Medication Monitoring: Side effects: sore deltoids from injections, some swelling but no redness or hotness, will monitor also mild akathisia, no dystonia EKG showed sinus tachycardia and borderline QTc, no arrhythmias Vital Signs Date Time Temp Pulse B/P 05/25 0758 96.9 93 114/68 05/24 1942 99.2 96 125/75 Treatment Plan Update: Increase the PRN doses or Lorazepam to 1.5 mg Q4 Hours Klonopin was increased yesterday to 1 mg AM + 3 mg QHS (stop mid-day dose) Chlorpromazine was discontinued yesterday Perphenazine was discontinued yesterday
--- NOTE | 2018-05-25 17:48 | SOCIAL WORKER PROG NOTE PSYCH ---
Social Work Progress Note Progress Note This residential mortgage underwriter met with patient. He discussed feeling hopeless and sad that he lost his job. We discussed ways in which he can address his own needs and manage illness/symptoms in order to return to a place where he can live independently and start working again. This residential mortgage underwriter and patient discussed a self soothing with 5 senses technique. He identified the five senses and activities that he do that incorporates them (both in and out of the hospital) when he is feeling distressed. For items that he can utilize in the hospital, patient identified calling his parents on the phone, watching television and smelling lavender. We shared these ideas with Elliot Pierce RN. This residential mortgage underwriter received a call from Helena at [facility] requesting the following documents which were faxed to her at [phone]: - faxed at 1:39pm: MRI report from 05/04/18 - faxed at 11:33am: Progress notes from 05/18/18-05/25/18, labs, current med list, history and physical and EKG [facility] called later stating that they would have a bed for the patient on Wednesday as tomorrow does not have any available beds.
[2018-05-25 19:36] VITALS: BP 130/79
[2018-05-26 07:34] VITALS: BP 130/81
--- NOTE | 2018-05-26 08:22 | CP SOUTH PROGRESS NOTE PSYCH ---
Psych (Inpt) Progress Note Progress Note The pt.'s progress, treatment plan, and aftercare plans were discussed in the treatment planning meeting (the team members were: DUSTY, RN, OTR/L, and Psychiatrist). Vital Signs Date Time Temp Pulse B/P B/P Pulse O2 FiO2 05/26 0734 97.1 95 130/81 05/25 1936 98.6 100 130/79 Mental Status Exam: Edison seemed a little calmer today (he did take his clonazepam about 45 minutes earlier) still feeling depressed, denied wanting to or kill self today. No attempts at self harm since Wednesday night. He says that he is not going to act out (i.e. he says hes not going to wrap anything around his neck , will not cut self, and will abide by the directions of the staff). He denied hallucinations, denied feeling paranoid, and there were no delusions during the interview and he seemed to be coherent/no formal thought disorder. Medication Monitoring: Side effects: he reported that his shoulder are better/less, swelling resolved, No redness or hotness, less restlessness/less akathisia, no dystonia. Treatment Plan Update: Change trazodone to regular schedule otherwise no changes Klonopin was increased yesterday to 1 mg AM + 3 mg QHS (stop mid-day dose) Chlorpromazine was discontinued yesterday Perphenazine was discontinued yesterday
[2018-05-26 19:48] VITALS: BP 140/77
[2018-05-27] MEDS ORDERED: TYLENOL325 M1 PO (08:54)
[2018-05-27] MEDS ORDERED: NICORELIEF2 MG PO (08:54)
[2018-05-27] MEDS ORDERED: CLONAZEPAM1 M2 PO (08:54)
[2018-05-27] MEDS ORDERED: TRAZODONE HCL50 M1 PO (08:55)
[2018-05-27] MEDS ORDERED: ATIVAN0.5 M1 PO (08:55)
--- NOTE | 2018-05-27 08:58 | Patient Discharge Instructions ---
Psych Discharge Inst General Discharge Information Reason for Admission: thoughts of suicide Psy Discharge Primary Diag+ Major Neurocognitive DO Psy Discharge Secondary Diag+ Traumatic Brain Injury Summary Tests/Major Procedures Laboratory Tests 05/19 Sodium (137 - 145 mmol/L) 137 Potassium (3.5 - 5.1 mmol/L) 4.2 Chloride (98 - 107 mmol/L) 99 Carbon Dioxide (22 - 30 mmol/L) 32 H Anion Gap (5 - 16) 5 BUN (9 - 20 mg/dL) 13 Creatinine (0.7 - 1.2 mg/dL) 1.0 Estimated GFR (>60 ml/min) > 60 BUN/Creatinine Ratio (7 - 25 %) 13.0 Troponin I (<0.11 ng/ml) < 0.01 WBC (4.8 - 10.8 /CUMM) 7.6 RBC (4.70 - 6.10 /CUMM) 4.48 L Hgb (14.0 - 18.0 G/DL) 13.7 L Hct (42 - 52 %) 41.1 L MCV (80.0 - 94.0 FL) 91.7 MCH (27.0 - 31.0 PG) 30.6 MCHC (33.0 - 37.0 G/DL) 33.4 RDW (11.5 - 14.5 %) 12.8 Plt Count (130 - 400 /CUMM) 290 MPV (7.4 - 10.4 FL) 8.0 Gran % (42.2 - 75.2 %) 68.6 Lymphocytes % (20.5 - 51.1 %) 22.8 Monocytes % (1.7 - 9.3 %) 5.9 Eosinophils % (0 - 5 %) 2.0 Basophils % (0.0 - 2.0 %) 0.7 Absolute Granulocytes (1.4 - 6.5 /CUMM) 5.2 Absolute Lymphocytes (1.2 - 3.4 /CUMM) 1.7 Absolute Monocytes (0.10 - 0.60 /CUMM) 0.4 Absolute Eosinophils (0.0 - 0.7 /CUMM) 0.1 Studies Pending at DC: none Patient Instructions Contact Information Your Psychiatrist on [facility] was Julian Burciaga MD * If you are experiencing an emergency related to this hospitalization, please call [phone] to contact the treating psychiatrist or the psychiatrist-on- call. * To Request a copy of your medical records, please contact the Medical Records Department at [phone]. * To request results of studies pending at the time of discharge, please call [phone]. * Continue your Medications until directed to stop by your Healthcare provider. General Medication Information Please continue to take your new medications and your continued home medications , unless otherwise indicated on your discharge medication list, or unless directed by your MD or SYSTEMS TEST TECHNICIAN to stop them. Special Instructions Diet Regular Activity Normal - Tobacco Use Treatment Offered Post DC Medications Offered: Script Given-See Med List Post DC Tobacco Treatment Plan: Not Applicable - EtOH/Drug Use D/O Treatment Offered Post DC Medications Offered: Med Not Indicated for D/O Post DC EtOH/SubAbuse TX Plan: NA-No EtOH/Drug Use D/O Metabolic Screening Not Applicable, patient not on a neuroleptic. Advance Directives Does the Patient have Medical Advance Directives No/Refused further info Does Pt have Psychiatric Advance Directives? No/Refused further info Does Patient have a Designated Surrogate Decision Maker: No Information About Psychiatric Advance Directives Provided? Refused Discharge Plan Post Hospital Treatment Plan: [facility]
[2018-05-27 09:27] VITALS: BP 127/81
--- NOTE | 2018-05-27 10:42 | SOCIAL WORKER PROG NOTE PSYCH ---
Social Work Progress Note Progress Note This screen writer spoke with Belen to inform of the conservator hearing on 06/01/18 ( as requested by his father). At her request, this was written on the fax cover sheet (W10, Patient Health Summary). The original voluntary admission application, signed by the patient, was included in the forms that were sent with the patient on [facility] to provide to [facility]. This screen writer spoke with Johana to schedule the [employer] ride ([phone]). At Johana's request, this screen writer contacted [facility] and spoke with Daljit to obtain a confirmation number ([id number]) and trip number ([id number]), which were then provided to [facility]. This screen writer met with patient. Discharge to [facility] at [facility] was discussed, to which he was agreeable. Patient discussed feeling anxious about discharging today, however, he also looked forward to this and denied SI today. He also denied HI/hallucinations. Patient identified a safety plan in which he would inform staff at [facility] if feeling unsafe or in crisis. Patient was informed that [facility] would transport him to [facility] by ambulance today around 10am. He was agreeable to this screen writer informing his father of the discharge as well as Melissa Woodall with [facility]. This screen writer spoke with patient's father, Justin Whyte, by phone who was informed of the discharge. He expressed gratitude for the treatment that his son was provided. He was also provided with an address and phone number for [facility]. This screen writer left a vm for Melissa Woodall with [facility] informing of the patient's discharge to [facility]. At the direction of Johana with [facility], the [facility] physician certifcation statement ( PCS) was provided to Meek Victoria, EMT and Grant Saldana, EMT who transported the patient to [facility]. This screen writer received a call from Belen at [facility] stating that the patient arrived to their facility. Faxed Referral(s) Referred To: [facility] Transition of Care Documents sent: Health Summary, W10 Faxed to: SELENE/Belen Fax #: [phone] Faxed by: Simeon Davila CARE ADMINISTRATIVE TECH Date faxed: 05/27/18 Time Faxed: [phone]
--- NOTE | 2018-05-27 11:08 | CP SOUTH PROGRESS NOTE PSYCH ---
Psych (Inpt) Progress Note Progress Note The pt.'s progress, treatment plan, and aftercare plans were discussed in the treatment planning meeting (the team members were: DUSTY, RN, OTR/L, and Psychiatrist). Vital Signs: Date Temp Pulse B/P 05/27 97.1 97 127/81 05/26 99.7 112 140/77 Mental Status Exam: Edison was calm today. He seemed indifferent regarding his discharge/transfer to [facility]. He is still feeling depressed but denied wanting to or kill self. No attempts at self harm since Wednesday. He says that he is not going to act out (i.e. he says hes not going to wrap anything around his neck , will not cut self, and will abide by the directions of the staff). He denied hallucinations, denied feeling paranoid, and there were no delusions during the interview and he seemed to be coherent/no formal thought disorder. Treatment Plan Update: Discharge to [facility] Change trazodone to regular schedule otherwise no changes
--- NOTE | 2018-05-27 12:39 | DISCHARGE SUMMARY REPORT-PSYCH ---
Visit Information Visit Dates/Diagnosis' Admission Date: 03/22/18 Discharge Date: 05/27/18 Reason for Admission: thoughts of suicide Psy Discharge Primary Diag: Major Neurocognitive DO Psy Discharge Secondary Diag: Traumatic Brain Injury Hospital Course Significant Lab Findings: No significant lab abnormalities Course Complications: Patient did not have any complications while he was on the inpatient psychiatric unit. Consultations: Patient had a history and physical examination when he was on the inpatient psychiatric unit. Please refer to the patient's electronic health record for the details of the H&P. Allergies: Coded Allergies: Cephalosporins (Severe, tongue swelling 08/14/17) Hospital Course/TX Response: 03/23/2018: Initial Impression and Plan: 27-year-old single white male who was admitted because of concern about safety. The patient was admitted against his will because he did not think that he needed to be hospitalized. However the collateral information from the father revealed that he has been having serious difficulties since December. Patient was discharged from inpatient psychiatric unit at [facility] on December 21, 2017 However it seems that the patient has been at least hospitalized twice during that time interval including [facility] and [facility]. This time around he comes in with positive drug screen for PCP and cocaine DSM 5 Diagnosis(es): Unspecified bipolar disorder Cocaine use disorder Other substance use disorder (hallucinogenPCP) Substance-induced psychotic disorder - Initial Tx Plan for Active Psych & Medical Conditions Treatment Plan: Inpatient psychiatric care with safety checks every 15 minutes 03/24/2018 to 05/26/2018: During those 2 months that the patient stayed on the inpatient psychiatric unit, several medications were tried in order to manage the patient's symptoms. The patient was tried on Zyprexa, Thorazine, clonidine, Depakote, lithium, sertraline, Tenex, methylphenidate, Suboxone, and Haldol. The target of all of these medications as well as the treatment was to reduce his provocative behaviors of attempting to self-harm such as wrapping the sheets around his neck on wrapping pillowcases or towels even or his own clothes. Also trying repeatedly to hide plastic knives in order to cut self which he did do at least once. It was not a serious And superficial not requiring any stitches. The patient had had some threatening behaviors in the beginning of his treatment both for almost the second month of his treatment there was no aggression at all. But there was a problem with repetitive behaviors and threats of self- harm. Ultimately, all medications were discontinued except benzodiazepines which the patient consistently reported that they are helpful in reducing his anxiety. He did have some akathisia with the repeated PRN's of Haldol and Thorazine that he was given either orally or by injection depending on his level of agitation and cooperation. I reviewed his records as well as his history very carefully and obtained a lot of information from the father while the patient was on the inpatient psychiatric unit and it was my opinion that the patient's most probable diagnoses are: 1) Major Neurocognitive Disorder Due to Traumatic Brain Injury, with behavioral disturbance (F02.81). 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 3) Opioid Use Disorder, early remission, in a controlled environment; 4) Cocaine Use Disorder. 5) Acquired Brain Injury/Traumatic Brain Injury ([facility]) 05/27/2018 Mental Status Exam: Edison was calm today. He seemed indifferent regarding his discharge/transfer to [facility]. He is still feeling depressed but denied wanting to or kill self. No attempts at self harm since Wednesday night. He says that he is not going to act out (i.e. he says hes not going to wrap anything around his neck , will not cut self, and will abide by the directions of the staff). He denied hallucinations, denied feeling paranoid, and there were no delusions during the interview and he seemed to be coherent/no formal thought disorder. Treatment Plan Update: Discharge to [facility] Discharge HBIPS - Tobacco Use Treatment Offered Post DC Medications Offered: Not Applicable Post DC Tobacco Treatment Plan: Not Applicable - EtOH/Drug Use D/O Treatment Offered Post DC Medications Offered: NA-No EtOH/Drug Use D/O Post DC EtOH/SubAbuse TX Plan: NA-No EtOH/Drug Use D/O Metabolic Screening - Screen if on a Neuroleptic Medication - Metabolic screening should include: - Blood Pressure, BMI, Glucose or Hgb A1c, & a - Lipid profile from within the past 365 days. Metabolic Screening Not Applicable, patient not on a neuroleptic. Discharge Instructions General Discharge Information Multiple Neuroleptics: Not Applicable Discharge Diet Regular Discharge Activity Normal DC Disposition: to [facility] Referrals Ordered Referrals Provider Referral 05/27/18 For Groups: [[facility]] [facility] [address] [facility], [place] [phone] Patient will be transported to above address by [facility] today at 10am. Provider Referral 06/08/18 For Providers: [[facility]] For Groups: [[facility]] [facility] [address], [place] [phone] Group meets every other Wednesday at 4pm Next group: 06/08/18, at 4pm Provider Referral For Groups: [[facility]] [facility] [phone] Prescriptions Stop taking the following medications: Trazodone HCl (Trazodone HCl) 100 MG TABLET ORAL AT BEDTIME as needed for insomnia Qty = 14 Landis Carbonate (Landis Carbonate) 300 MG CAPSULE ORAL 799,1999 Qty = 30 Start taking the following new medications: Nicotine (Nicorelief) 2 MG GUM 2 Milligram ORAL EVERY 2 HOURS NEEDED as needed for craving a cigarette Qty = 1 No Refills Comments: Last Taken:05/27/18 Time:0930 Acetaminophen (Tylenol) 325 MG TABLET 650 Milligram ORAL EVERY 4 HOURS NEEDED as needed for PAIN SCALE 1-3 ( MILD) Qty = 1 No Refills Comments: Last Taken:05/25/18 Time:2000 Trazodone HCl (Trazodone HCl) 50 MG TABLET 150 Milligram ORAL 2100 as needed for INSOMNIA Qty = 1 No Refills Comments: Last Taken:05/26/18 Time:2200 Lorazepam (Ativan) 0.5 MG TABLET 1.5 Milligram ORAL EVERY 4 HOURS NEEDED as needed for ANXIETY/AGITATION/ INSOMNIA Qty = 1 No Refills Comments: Last Taken:05/27/18 Time:0925 Clonazepam (Clonazepam) 1 MG TABLET 1 Tablet ORAL SEE INSTRUCTIONS Qty = 1 No Refills Instructions: 1 tab in AM, 1 tab afternoon and 2 tabs at bedtime Comments: Last Taken:05/27/18 Time:0800 Studies Pending at Discharge none Copies To: [facility]
== END 2018-05-27 10:22 | disposition other institution (70) | DRG 757 ==
LOC: ERH 20:41 → ERHI 03-22 12:40 → CP SOUTH 03-22 12:40 → ENTRNSPT 03-22 20:16 → EDTRNSPTSTS 03-22 20:22 → EDTRNSPT 03-22 20:22 → CP SOUTH 03-22 20:24 → CMPTRNSPT 03-22 20:29 → CP SOUTH 03-22 20:30
PROVIDERS: Emergency Medicine; Internal Medicine Infectious Disease; Psychiatry & Neurology Psychiatry
DX: F01.50 Vascular dementia, unspecified severity, without behavioral disturbance, psychotic disturbance, mood disturbance, and anxiety (principal); Z87.820 Personal history of traumatic brain injury; F31.9 Bipolar disorder, unspecified; F14.90 Cocaine use, unspecified, uncomplicated
CPT/HCPCS: 70551; 86618; 36415; 80307; 81003; 82436; 93005; 93010; 96372; G0480; J0515; J1200; J1630; J2060; J3490